=== PATIENT | female | born 1935 | race Caucasian/White ===

== ENCOUNTER 2019-04-13 20:35 | Emergency (ER) | payer MEDICAID, SELFPAY ==
[2019-04-13 20:40] VITALS: BP 202/108; PULSE 80; RESP 18; TEMP 36.3; O2SAT 96; BMI 37.2
--- NOTE | 2019-04-13 21:29 | W.ED.EXTPRO ---
HPI - Extremity Problem General: Chief complaint: Extremity Injury, Lower Stated complaint: unable to move right leg Time Seen by Provider: 04/13/19 20:56 History of Present Illness: HPI Narrative: Patient is an 83-year-old female comes in to the ED with left leg pain. She denies any falls or injuries. She says the pain is in her left knee and in her lower leg. She does have some edema in her left lower extremity. Patient has been able to ambulate but the last 3 days is when the pain is Worse and she doesn't get up and walk as much. Patient currently takes a blood thinner. She does have a cough but denies coughing up any blood. She states that she does get short of breath sometimes and she walks and moves around. She does have a history of chronic left knee pain and his Joint injections in the past. Associated symptoms: Deny chest pain, fever(s) or rash Review of Systems Const: Denies: fever, chills or fatigue Eyes: Denies: change in vision or eye discomfort ENMT: Denies: throat pain, painful swallowing, nasal discharge or nasal congestion Card: Denies: chest pain, palpitations, edema, swelling of feet/ankles, shortness of breath on exertion or shortness of breath when lying down Resp: Reports: shortness of breath and non-productive cough; Denies: productive cough GI: Denies: abdominal pain, nausea, vomiting, diarrhea, constipation or blood in stool : Denies: flank pain, painful urination or blood in urine Musc: Reports: extremity pain (left lower), extremity swelling (left lower ) and joint pain (left knee); Denies: neck pain or back pain Skin/Breast: Denies: rash or new lesion Neuro: Denies: headache, numbness in extremities or weakness in extremities [facility] ED PFSH: Social History Smoking and tobacco status: never smoked Physical Exam Const: COMMON NORMALS: oriented x3 HENMT: COMMON NORMALS: normocephalic HEAD & SCALP: normocephalic MOUTH: oral and palatal mucosa normal THROAT: posterior oropharynx normal and uvula midline Neck/C-Spine: COMMON NORMALS: supple GENERAL: Yes normal visual inspection Resp: COMMON NORMALS: normal respiratory effort, no retractions, no use of accessory muscles and clear to auscultation bilaterally AUSCULTATION: clear to auscultation bilaterally Cardio: COMMON NORMALS: regular rate, regular rhythm, S1 normal heart sound, S2 normal heart sound, no gallops, no clicks and peripheral pulses 2+ throughout RATE: regular rate RHYTHM: regular rhythm HEART SOUNDS: S1 normal, S2 normal and murmur systolic Location: apex Intensity: III/ Characteristics: blowing Timing: early PERIPHERAL PULSES: pulses 2+ throughout GI: COMMON NORMALS: normal to inspection, nondistended, normoactive bowel sounds, soft to palpation, non-tender and no masses PALPATION: Yes soft : COMMON NORMALS: Yes no CVA tenderness BLADDER/KIDNEY EXAM: Yes no CVA tenderness Back/Pelvis: COMMON NORMALS: no CVA tenderness Extremity: LEFT LOWER EXTREMITY: Yes lower leg (2+ pitting edema. non tender) Neuro: COMMON NORMALS: oriented x3 and moves all extremities Skin: GENERAL SKIN EXAM: dry skin Course Vital Signs: Vital signs: Vital Signs Temperature 97.9 F 04/13/19 22:44 Pulse Rate 73 04/13/19 22:44 Respiratory Rate 18 04/13/19 22:44 Blood Pressure 190/93 04/13/19 22:44 Pulse Oximetry 73 L 04/13/19 22:44 MDM - Extremity (Nontraumatic) Imaging Data^: US Vascular: Attestation: I personally reviewed and interpreted this imaging study as follows: Radiologist's impression: Preliminary report shows no blood clots or DVTs. Xray Ortho: Attestation: I personally reviewed and interpreted this imaging study as follows: My impression: No acute fractures seen. Pending final radiology report Discharge Plan Discharge Patient Disposition: Home, Self-Care Clinical Impression: Lower extremity pain Qualifiers: Laterality: left Qualified Code(s): M79.605 - Pain in left leg Condition: Stable Discharge Orders: Discharge Order (Routine); Ordered 04/13/19 Ordered By: Wesly Escobar Referrals: Torey Cade MD [Family Provider] - Discharge Diet: Regular Discharge Activity: Increase activity as tolerated Patient Instructions: Knee Pain (ED) Activity Restrictions/Additional Instructions: Follow-up with your PCP in 5-7 days for reevaluation. Here in the ED where able to rule out a blood clot in the left leg. Take ibuprofen or Aleve for pain. You can elevate and ice leg as needed to help reduce any swelling. Discharge Date/Time: 04/13/19 23:00 Coding Level of Care Code ED Geological Engineer for Aylin Tracy Exam Comprehensive
--- NOTE | 2019-04-13 21:37 | XRR_ITS ---
PROCEDURE INFORMATION: Exam: XR Left Knee Exam date and time: 04/13/2019 10:05 PM Age: 83 years old Clinical indication: Pain and injury or trauma; Fall; Initial encounter; Blunt trauma; Knee; Left; Injury date: 04/13/19 TECHNIQUE: Imaging protocol: XR Left knee. Views: Frontal, lateral, and oblique views. COMPARISON: [facility] Knee LEFT 3 views 09/25/2016 10:38 AM FINDINGS: Bones/joints: Moderately severe medial compartment predominate narrowing with moderate articular sclerosis. 6 mm lateral subluxation of the tibia. Slight varus alignment. No acute bony abnormality identified. Superior patellar and femoral trochlear articular marginal osteophytes are present. Soft tissues: Normal. Vasculature: Vascular calcifications are present. XR/XR knee LT 1-2V 45012 IMPRESSION: 1. Medial and patellofemoral compartment predominant primary osteoarthritis. 2. No acute bony injury identified.
--- NOTE | 2019-04-13 21:38 | USCV_ITS ---
Mercedez Ramos Age: 83 Gender: F : 1935 Exam Date: 04/13/2019 22:30 Ordering Phys: Wesly Escobar Technologist: Mayo Ontiveros Exam Location: [facility] [place]_ Indication: LT LEG PAIN AND SWELLING HISTORY: Lower extremity edema. PROCEDURES: Venous duplex imaging was performed in only the left lower extremity. The following venous structures were evaluated: common femoral vein, profunda vein, proximal portion of the greater saphenous vein, superficial femoral vein, and the popliteal vein. In addition, the posterior tibial and peroneal trunk were evaluated. On the left side, the common femoral, superficial femoral, profunda femoral, popliteal, posterior tibial, greater saphenous veins, and the peroneal trunk were identified and interrogated in the standard fashion. These veins were found to be easily compressible with spontaneous blood flow. No evidence of insufficiency or thrombus noted. FINDINGS: Normal 2-D Doppler and augmentation and compressibility throughout the lower extremity venous structures. Additional imaging through the proximal calf veins also reveals no thrombus. Limited evaluation of the greater saphenous vein is patent with no thrombus.. CONCLUSIONS No evidence of left lower extremity DVT. Scout Stevens MD (Electronically Signed) Final Date: 14 April 2019 09:23 S
--- NOTE | 2019-04-13 22:04 | PC.NURSE ---
xray in room with pt
--- NOTE | 2019-04-13 22:23 | PC.NURSE ---
ultrasound in with pt
[2019-04-13 22:44] VITALS: BP 190/93; PULSE 73; RESP 18; TEMP 36.6; O2SAT 73
== END 2019-04-13 23:00 | disposition home or self-care (01) ==
PROVIDERS: Emergency Provider Physician Assistant; Family Provider Family Medicine
DX: M79.662 Pain in left lower leg (principal)
CPT/HCPCS: 73560; 93971; 99281; 99283

== ENCOUNTER 2019-04-16 13:16 | Outpatient (CLI) | payer MEDICAID, SELFPAY ==
--- NOTE | 2019-04-16 13:27 | XRR_ITS ---
PROCEDURE INFORMATION: Exam: XR Left Femur Exam date and time: 04/16/2019 1:50 PM Age: 83 years old Clinical indication: Pain; Lower leg and thigh; Left; Additional info: L femur pain TECHNIQUE: Imaging protocol: XR Left femur. Views: 2 views. COMPARISON: CR XR knee LT 1-2V [id number] 04/13/2019 9:49 PM FINDINGS: Bones/joints: There is osteopenia. No acute fracture. There is an osteophyte off the distal femur. Soft tissues: Unremarkable. XR/XR femur LT min 2V* [id number] IMPRESSION: No acute findings.
--- NOTE | 2019-04-16 13:27 | XRR_ITS ---
PROCEDURE INFORMATION: Exam: XR Left Tibia and Fibula Exam date and time: 04/16/2019 1:29 PM Age: 83 years old Clinical indication: Pain; Lower leg and thigh; Left; Additional info: L tibia pain TECHNIQUE: Imaging protocol: XR Left tibia and fibula. Views: 2 views. COMPARISON: CR XR knee LT 1-2V [id number] 04/13/2019 9:49 PM FINDINGS: Bones/joints: There is osteopenia.There is no evidence for acute fracture or malalignment. Soft tissues: Normal. XR/XR tibia fibula LT 2V [id number] IMPRESSION: No acute findings.
--- NOTE | 2019-04-16 13:48 | CT_ITS ---
WS: [id number] CT CHEST, ABDOMEN AND PELVIS WITH CONTRAST HISTORY: COLON CANCER TECHNIQUE: Contiguous 5 mm axial imaging performed through the chest, abdomen and pelvis with IV cont rast, oral contrast has been provided. Coronal and sagittal reformats chest. Coronal and sagittal ref ormats through the abdomen and pelvis. All CT scans at [facility] use at least one of the se dose optimization techniques: automated exposure control; mA and/or kV adjustment per patient size (includes targeted exams where dose is matched to clinical indication); or iterative reconstruction. CONTRAST: Omnipaque 300; 95 mL IV. DLP: 2058.6 mGy.cm COMPARISON: 05/01/2018, 05/04/2017 and 04/11/[address]: Respiratory motion artifact. No pulmonary nodule or pneumonia. No pericardial or pleural ef fusion. Moderate enlargement the cardiac chambers. Atherosclerosis aorta. Pulmonary hypertension. No mediastinal or hilar adenopathy. Small hiatal hernia. Abdomen CT: Liver is normal size. No metastatic disease. Gallbladder is slightly distended but simila r to prior studies with no adjacent inflammation. Spleen is normal. Marked atrophy of the pancreas. N o adrenal mass. Mild atrophy of each kidney. There is no obstruction. Atherosclerosis aorta. No mesen teric or retroperitoneal lymph nodes or ascites. Pelvic CT: Ventral abdominal wall hernia is still evident. Herniated loops of small bowel with no obs truction. There is adjacent fluid collection along the anterior abdominal wall which is similar to th e prior study. Fluid collection measures 6.4 x 2.8 cm with no increase in size. No adenopathy or free fluid in the pelvis. Marked increase in thoracic kyphosis. LEFT convex curvature the lumbar spine. No osteoblastic or oste olytic lesions. CT/CT chest abd pel w con* IMPRESSION: 1. No metastatic disease throughout the chest, abdomen or pelvis. 2. Moderate cardiac enlargement and pulmonary hypertension. 3. Small hiatal hernia. 4. Ventral abdominal wall hernia is unchanged. Small amount of adjacent fluid. No GI tract obstruction.
[2019-04-16 14:07] LABS: Basophils % 0.4 %; Eosinophils # 0.2 10^3/uL (0.0-0.8); Hematocrit 38.9 % (37.0-47.0); Hemoglobin 12.9 g/dL (11.5-15.3); Lymphocytes # 1.4 10^3/uL (0.8-4.8); Lymphocytes % 28.1 %; Mean Corpuscular HGB Conc 33.2 g/dL (30.0-36.0); Mean Corpuscular Hemoglobin 32.7 pg (28.0-34.0); Mean Corpuscular Volume 98.7 fL (81-99); Mean Platelet Volume 9.6 fL (7.4-10.4); Monocytes # 0.5 10^3/uL (0.2-0.9); Monocytes % 10.3 %; Neutrophils # 2.9 10^3/uL (1.8-7.7); Neutrophils % 57.8 %; Nucleated Red Blood Cells % 0 %; Platelet Count 217 10^3/cmm (130-400); Red Blood Count 3.94 10^6/uL (4.1-5.3); Red Cell Distribution Width 12.8 % (12.1-15.1); White Blood Count 5.1 10^3/uL (4.0-10.0)
[2019-04-16 14:27] LABS: Carcinoembryonic Antigen 1.2 ng/mL (0.0-4.7)
[2019-04-16 14:38] LABS: Alanine Aminotransferase 12 U/L (0-33); Albumin Level 3.8 g/dL (3.5-5.2); Alkaline Phosphatase 90 IU/L (35-105); Anion Gap 14.8 (5-19); Aspartate Amino Transferase 21 U/L (0-32); Blood Urea Nitrogen 23 mg/dL (8-23); Calcium 9.5 mg/dL (8.5-10.5); Carbon Dioxide 28 mmol/L (22-29); Chloride 103 mmol/L (98-107); Globulin 3.6 g/dL (1.3-4.6); Glucose 109 mg/dL (65-115); Potassium 4.8 mmol/L (3.5-5.1); Sodium 141 mmol/L (136-145); Total Bilirubin 0.7 mg/dL (0.15-1.2); Total Protein 7.4 g/dL (6.6-8.7)
[2019-04-16] MEDS: iohexol 300 mg/mL 100 mL Btl IV (15:33)
[2019-04-16] MEDS: iohexol 300 mg/mL 50 mL Btl PO (15:34)
== END 2019-04-16 13:17 | disposition home or self-care (01) ==
PROVIDERS: Family Provider Family Medicine; Visit Provider Internal Medicine Medical Oncology
DX: M79.662 Pain in left lower leg (principal); C18.7 Malignant neoplasm of sigmoid colon; I27.20 Pulmonary hypertension, unspecified; K44.9 Diaphragmatic hernia without obstruction or gangrene; K46.9 Unspecified abdominal hernia without obstruction or gangrene; I51.7 Cardiomegaly
CPT/HCPCS: 36415; 71260; 73552; 73590; 74177; 80053; 82378; 85025

== ENCOUNTER 2019-04-23 11:38 | Outpatient (CLI) | payer MEDICAID, SELFPAY ==
--- NOTE | 2019-04-23 19:27 | ONC FU_ITS ---
Dr. Winchester Patient Follow-Up Note Patient: Mercedez Ramos Unit #: [id number]: 1935 Dicatated By: Gregor Winchester M.D.Date of Visit:Apr 23, 2019 Onc Med Follow-up/Prog Note Chief Complaint: Colon cancer. 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 She had presented with severe abdominal pain and rectal bleeding. Her colonoscopy revealed partially obstructing large mass with active bleeding in sigmoid colon. The biopsy was consistent with moderately differentiated adenocarcinoma. The staging CT of the abdomen and pelvis on 04/09/2015 showed new mid sigmoid colonic cavitary mass with partial bowel obstruction or ileus. There was no evidence of distant metastatic disease. On 04/29/2015 she was taken to OR by Dr. Franklin for exploratory laparotomy and low anterior resection. Intraoperatively, the tumor was adhesed to the sidewall of the pelvis, with desmoplastic reaction but no obvious extension. At the time of elevation of colon, the tumor was coming through the colon wall. However, there was no signs of peritoneal carcinomatosis. The surgical pathology revealed 8 cm low-grade infiltrating adenocarcinoma with mucinous histology, penetrating through muscularis propria into pericolic tissue to the surface of the resection specimen. Radial margins were positive. No lymphovascular invasion was seen. 2 out of 15 harvested lymph nodes were involved with metastatic disease. Thus, her disease was pathologic stage IIIB (T3, N1b, M0). The patient was first seen by Dr. Marte on 05/12/2015. Adjuvant chemotherapy was recommended given several high risk features, but the patient declined. As such, she has been followed expectantly. Restaging CT abdomen/pelvis on 11/10/2015 showed possible enterocutaneous fistula, clinical correlation recommended. Other findings were chronic. There was no evidence of metastatic involvement. Repeat CT scans on 03/28/2016 again showed no metastatic disease throughout the chest, abdomen, or pelvis. I had seen her for a follow-up visit on 08/29/2016. At that time I had recommended that she schedule a surveillance colonoscopy with Dr. Franklin, but she declined to follow through with that. She did have surveillance CT scans of the chest, abdomen, and pelvis in February 2017, and those showed no evidence of recurrent or metastatic disease. In April 2017 she was admitted to the hospital with a small bowel obstruction associated with an incarcerated ventral hernia. She underwent surgical repair with no complications. Her other medical illnesses include hypertension, hyperlipidemia, type II diabetes, coronary artery disease, atrial fibrillation, hypothyroidism, and GERD. She is on chronic anticoagulation with rivaroxaban. INTERIM HISTORY: Her surveillance CT scans on 05/01/2018 showed no evidence of a neoplastic process in the chest, abdomen, or pelvis. There was evidence of cardiomegaly and there was mild pulmonary arterial enlargement suggestive of pulmonary hypertension. The gallbladder was noted to be distended, but without evidence of gallstones. She continued on observation/expectant management. Surveillance CT scans on 04/16/2019 showed no evidence for metastatic disease throughout the chest, abdomen, or pelvis. There was noted to be moderate cardiac enlargement and pulmonary hypertension. A ventral abdominal wall hernia appeared unchanged. She is seen for a scheduled visit. Her main complaint is that she has been having pain in her knees and legs, severe enough that it is impairing her mobility. She does not have much activity now. ECOG score is 3. She has seen Dr. Cade, and she is hoping to get injections in her knees. Her appetite has been good. She has no fever or night sweats. She has some sinus drainage and some hoarseness. Her breathing has been okay. She recently has had a flulike illness with productive cough, but she thinks that is getting better. She is not having chest pain. She currently has no GI complaints. She has frequent urination with some urgency/incontinence. She has no other joint or bone pain. She has had some headache recently with her flu. She occasionally has dizziness. She also occasionally has numbness in her fingers. Medications: Acetaminophen 1 (500 mg) Capsule Oral at bedtime, Aspirin 1 (325 mg) Tablet Oral daily, Benicar HCT 1 (40-25 mg) Tablet Oral daily, Coreg 1 (6.5 mg) Tablet Oral b.i.d., Crestor 1 (40 mg) Tablet Oral daily, Imdur 1 (60 mg) Tablet SR 24 HR Oral daily, Levothyroxine Sodium 1 (162 mcg) Capsule Oral daily, Protonix 1 (40 mg) Pack Oral daily, Senna S 2 (8.6-50 mg) Tablet Oral t.i.d., Toviaz 1 (4 mg) Tablet SR 24 HR Oral daily, Ventolin HFA 2 (108 (90 base) mcg/act) Aerosol, solution Inhalation four times a day, Xarelto 1 (20 mg) Tablet Oral daily, Zetia 1 (10 mg) Tablet Oral daily Allergies: No Known Allergies. Review of Systems: Constitutional - She has limited activity, mainly due to pain in her knees. Appetite is good. No fever or night sweats. ECOG score is 3, ENMT - She has sinus drainage and she complains of hoarseness. No mouth sores. No sore throat or difficulty swallowing, Hematologic/Lymphatic - She bruises easily, Respiratory - No shortness of breath, but she has had cough productive of yellow sputum. No pleuritic pain or hemoptysis, Cardiovascular - No angina pain. No palpitations, Gastrointestinal - No nausea or vomiting. No heartburn or acid reflux. Her bowel function has been OK. No blood in the stool or black stools, Genitourinary (F) - No dysuria or hematuria. She has urinary frequency and she has some urgency/incontinence, Musculoskeletal - She has arthritis pain in her knees and legs, Integumentary - No skin complications, Neurologic - She had some headache with her flu , and she occasionally has dizziness. She has occasional numbness in her fingers, Psychiatric - No anxiety or depression. No insomnia. Vital Signs: Performed on Apr 23, 2019 11:52 Height - 60.50 in Weight - lbs Temperature - 98.4 F Pulse - 80 /min Respiration - 20 /min BP - 154/80 mm(hg) (HIGH) O2 Sat - 97 % Pain - 10 Physical Examination: Constitutional - She looks pretty good generally, Eyes - Sclerae nonicteric. Conjunctivae clear, ENMT - No lesions noted in the oral cavity, Hematologic/Lymphatic - No cervical, clavicular, or axillary adenopathy, Respiratory - Lungs sound clear, Cardiovascular - Heart rhythm is irregular. There is a II/ systolic murmur. There is no gallop or rub noted, Abdomen - Soft. Liver and spleen are not enlarged. There is no abdominal mass or ascites noted and there is no inguinal adenopathy, Extremities - No edema. She has good dorsalis pedis pulses bilaterally, Neurologic - No focal neurologic deficits noted. Lab/Imaging: Test performed on Apr 16, 2019 13:56 Sodium 141 mmol/L Potassium 4.8 mmol/L Chloride 103 mmol/L CO2 28 mmol/L Anion Gap 14.8 BUN 23 mg/dL Creatinine 0.8 mg/dL Cr Clearance (Est) 74.4800 mL/min Glucose 109 mg/dL Calcium 9.5 mg/dL Protein, Total 7.4 g/dL Albumin 3.8 g/dL Globulin 3.6 g/dL Bilirubin, Total 0.7 mg/dL ALT (SGPT) 12 U/L AST (SGOT) 21 U/L Alkaline Phosphatase 90 IU/L WBC 5.1 10 3/uL RBC 3.94 10 6/uL HGB 12.9 g/dL HCT 38.9 % MCV 98.7 fL MCH 32.7 pg MCHC 33.2 g/dL RDW 12.8 % Platelet Count 217 10 3/cmm MPV 9.6 fL Neutrophils 2.9 10 3/uL Lymphocytes 1.4 10 3/uL Monocytes 0.5 10 3/uL Eosinophils 0.2 10 3/uL Basophils 0.0 10 3/uL Neutrophil % 57.8 % Lymphocyte % 28.1 % Monocyte % 10.3 % Eosinophil % 3.0 % Basophils % 0.4 % CEA 1.2 ng/mL Impression: 1. 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 2. She underwent low anterior resection on 04/29/2015. Pathology showed positive radial margin. Adjuvant chemotherapy was recommended, but declined. Her other medical illnesses include: 3. Hypertension. 4. Hyperlipidemia. 5. Type II diabetes. 6. Coronary artery disease. 7. Atrial fibrillation, on anticoagulation. 8. Hypothyroidism. 9. GERD. She has been followed on observation/expectant management. She has declined to have any surveillance colonoscopy. She did have surveillance CT scans in February 2017. There was no evidence of recurrent or metastatic disease. In April 2017 she was admitted to the hospital with CT evidence of small bowel obstruction in association with an incarcerated ventral hernia. She underwent surgical repair with no complications. During subsequent follow-up she had complained of being more fatigued, and she was having significant arthritis pain. As of her follow-up visit in March 2018 her CEA remained stable, and there was no evidence of recurrence/metastatic disease on surveillance CT scans in April 2018. During followup she had complained that her stomach bothered her, but that appeared to be associated with poor bowel function, and ultimately it did improve. Recently she has had worsening joint pain in her knees, severe enough that it is impairing her mobility. She otherwise appears stable clinically. Thus far there has been no evidence of recurrence of the colon cancer. Plan: She remains on observation/expectant management for the colon cancer. She will be scheduled for a follow-up visit in 6 months. Signed By: Gregor Winchester M.D. <<Signature on File>>
== END 2019-04-23 11:39 | disposition home or self-care (01) ==
LOC: ONCMED 11:38
PROVIDERS: Family Provider Family Medicine; PCP Family Medicine; Visit Provider Internal Medicine Medical Oncology
DX: Z08 Encounter for follow-up examination after completed treatment for malignant neoplasm (principal); Z85.038 Personal history of other malignant neoplasm of large intestine; I10 Essential (primary) hypertension; E78.5 Hyperlipidemia, unspecified; E11.9 Type 2 diabetes mellitus without complications; I25.10 Atherosclerotic heart disease of native coronary artery without angina pectoris; I48.91 Unspecified atrial fibrillation; E03.9 Hypothyroidism, unspecified; K21.9 Gastro-esophageal reflux disease without esophagitis; Z79.01 Long term (current) use of anticoagulants; Z90.49 Acquired absence of other specified parts of digestive tract
CPT/HCPCS: G0463

== ENCOUNTER 2019-10-08 11:35 | Outpatient (CLI) | payer MEDICAID, SELFPAY ==
[2019-10-08 11:57] LABS: Basophils % 0.5 %; Eosinophils # 0.2 10^3/uL (0.0-0.8); Eosinophils % 4.1 %; Hematocrit 39.6 % (37.0-47.0); Lymphocytes # 1.5 10^3/uL (0.8-4.8); Lymphocytes % 35.4 %; Mean Corpuscular HGB Conc 32.8 g/dL (30.0-36.0); Mean Corpuscular Volume 97.5 fL (81-99); Monocytes # 0.5 10^3/uL (0.2-0.9); Monocytes % 11.5 %; Neutrophils # 1.98 10^3/uL (1.8-7.7); Neutrophils % 48.3 %; Nucleated Red Blood Cells % 0 %; Platelet Count 174 10^3/cmm (130-400); Red Blood Count 4.06 10^6/uL (4.1-5.3); Red Cell Distribution Width 12.7 % (12.1-15.1); White Blood Count 4.1 10^3/uL (4.0-10.0)
[2019-10-08 12:14] LABS: Alanine Aminotransferase 11 U/L (0-33); Albumin Level 4.2 g/dL (3.5-5.2); Alkaline Phosphatase 92 IU/L (35-105); Anion Gap 11.4 (5-19); Aspartate Amino Transferase 23 U/L (0-32); Blood Urea Nitrogen 18 mg/dL (8-23); Calcium 9.4 mg/dL (8.5-10.5); Carbon Dioxide 28 mmol/L (22-29); Chloride 105 mmol/L (98-107); Globulin 3.1 g/dL (1.3-4.6); Glucose 104 mg/dL (65-115); Osmolality Calculated 287 mOsm/kg (285-295); Potassium 4.4 mmol/L (3.5-5.1); Sodium 140 mmol/L (136-145); Total Bilirubin 1.1 mg/dL (0.15-1.2); Total Protein 7.3 g/dL (6.6-8.7)
[2019-10-08 13:46] LABS: Carcinoembryonic Antigen 1.4 ng/mL (0.0-4.7)
--- NOTE | 2019-10-11 16:16 | ONC FU_ITS ---
Dr. Winchester Patient Follow-Up Note Patient: Mercedez Ramos Unit #: [id number]: 1935 Dicatated By: Gregor Winchester M.D.Date of Visit:Oct 08, 2019 Onc Med Follow-up/Prog Note Chief Complaint: Colon cancer. 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 She had presented with severe abdominal pain and rectal bleeding. Her colonoscopy revealed partially obstructing large mass with active bleeding in sigmoid colon. The biopsy was consistent with moderately differentiated adenocarcinoma. The staging CT of the abdomen and pelvis on 04/09/2015 showed new mid sigmoid colonic cavitary mass with partial bowel obstruction or ileus. There was no evidence of distant metastatic disease. On 04/29/2015 she was taken to OR by Dr. Franklin for exploratory laparotomy and low anterior resection. Intraoperatively, the tumor was adhesed to the sidewall of the pelvis, with desmoplastic reaction but no obvious extension. At the time of elevation of colon, the tumor was coming through the colon wall. However, there was no signs of peritoneal carcinomatosis. The surgical pathology revealed 8 cm low-grade infiltrating adenocarcinoma with mucinous histology, penetrating through muscularis propria into pericolic tissue to the surface of the resection specimen. Radial margins were positive. No lymphovascular invasion was seen. 2 out of 15 harvested lymph nodes were involved with metastatic disease. Thus, her disease was pathologic stage IIIB (T3, N1b, M0). The patient was first seen by Dr. Marte on 05/12/2015. Adjuvant chemotherapy was recommended given several high risk features, but the patient declined. As such, she has been followed expectantly. Restaging CT abdomen/pelvis on 11/10/2015 showed possible enterocutaneous fistula, clinical correlation recommended. Other findings were chronic. There was no evidence of metastatic involvement. Repeat CT scans on 03/28/2016 again showed no metastatic disease throughout the chest, abdomen, or pelvis. I had seen her for a follow-up visit on 08/29/2016. At that time I had recommended that she schedule a surveillance colonoscopy with Dr. Franklin, but she declined to follow through with that. She did have surveillance CT scans of the chest, abdomen, and pelvis in February 2017, and those showed no evidence of recurrent or metastatic disease. In April 2017 she was admitted to the hospital with a small bowel obstruction associated with an incarcerated ventral hernia. She underwent surgical repair with no complications. Her other medical illnesses include hypertension, hyperlipidemia, type II diabetes, coronary artery disease, atrial fibrillation, hypothyroidism, and GERD. She is on chronic anticoagulation with rivaroxaban. INTERIM HISTORY: Her CT scans on 05/01/2018 showed no evidence of a neoplastic process in the chest, abdomen, or pelvis. There was evidence of cardiomegaly and there was mild pulmonary arterial enlargement suggestive of pulmonary hypertension. The gallbladder was noted to be distended, but without evidence of gallstones. Surveillance CT scans on 04/16/2019 showed no evidence for metastatic disease throughout the chest, abdomen, or pelvis. There was noted to be moderate cardiac enlargement and pulmonary hypertension. A ventral abdominal wall hernia appeared unchanged. She continued on observation/expectant management. She is seen for a scheduled visit. She is accompanied by her granddaughter, who interprets. She has been feeling good generally. She is a little slower, mainly due to to her knee pain. Her ECOG score is 2. She has good appetite. She has no fever or night sweats. She has no shortness of breath, cough, or chest pain. She has chronic constipation, but is being managed adequately with senna. She has bladder incontinence. She also has joint pain in her wrists and fingers, and she has numbness in her fingertips. Medications: Acetaminophen 1 (500 mg) Capsule Oral at bedtime, Aspirin 1 (325 mg) Tablet Oral daily, Benicar HCT 1 (40-25 mg) Tablet Oral daily, Coreg 1 (6.5 mg) Tablet Oral b.i.d., Crestor 1 (40 mg) Tablet Oral daily, Imdur 1 (60 mg) Tablet SR 24 HR Oral daily, Levothyroxine Sodium 1 (162 mcg) Capsule Oral daily, Protonix 1 (40 mg) Pack Oral daily, Senna S 2 (8.6-50 mg) Tablet Oral t.i.d., Toviaz 1 (4 mg) Tablet SR 24 HR Oral daily, Ventolin HFA 2 (108 (90 base) mcg/act) Aerosol, solution Inhalation four times a day, Xarelto 1 (20 mg) Tablet Oral daily, Zetia 1 (10 mg) Tablet Oral daily Allergies: No Known Allergies. Review of Systems: Constitutional - She has limited activity, mainly due to her knees. Her appetite is good. Her weight is stable. She does not have fever or night sweats. ECOG score is 2, ENMT - No sinus congestion/drainage. No mouth sores. No sore throat or difficulty swallowing, Hematologic/Lymphatic - No abnormal bruising or bleeding, Respiratory - No shortness of breath. No cough. No pleuritic pain or hemoptysis, Cardiovascular - No angina pain. No palpitations, Gastrointestinal - No nausea or vomiting. No heartburn or acid reflux. She has constipation, but it is managed adequately with senna. No blood in the stool or black stools, Genitourinary (F) - No dysuria or hematuria. No urinary frequency. She has a bladder incontinence, Musculoskeletal - She had joint pain, mainly in her knees, but also in her wrists and fingers, Neurologic - No headache. She sometimes has dizziness. She has numbness in her fingertips. No other focal neurologic symptoms, Psychiatric - No anxiety or depression. No insomnia. Vital Signs: Performed on Oct 08, 2019 12:43 Height - 60.50 in Weight - 182.2 lbs (HIGH) BSA - 1.80 sq.m BMI - 35.00 (HIGH) Temperature - 96.6 F (LOW) Pulse - 86 /min Respiration - 17 /min BP - 159/82 mm(hg) (HIGH) O2 Sat - 96 % Pain - 0 Physical Examination: Constitutional - She looks pretty good generally, Eyes - Sclerae nonicteric. Conjunctivae clear, ENMT - No lesions noted in the oral cavity, Hematologic/Lymphatic - No cervical, clavicular, or axillary adenopathy, Respiratory - Lungs sound clear, Cardiovascular - Heart rhythm is irregular. There is a II/ systolic murmur. There is no gallop or rub noted, Abdomen - Soft. Liver and spleen are not enlarged. There is no abdominal mass or ascites noted and there is no inguinal adenopathy, Extremities - No edema. Dorsalis pedis pulses are palpable bilaterally, Neurologic - No focal neurologic deficits noted. Lab/Imaging: Test performed on Oct 08, 2019 11:42 Sodium 140 mmol/L Potassium 4.4 mmol/L Chloride 105 mmol/L CO2 28 mmol/L Anion Gap 11.4 BUN 18 mg/dL Creatinine 0.8 mg/dL Cr Clearance (Est) 71.96 mL/min Glucose 104 mg/dL Calcium 9.4 mg/dL Protein, Total 7.3 g/dL Albumin 4.2 g/dL Globulin 3.1 g/dL Bilirubin, Total 1.1 mg/dL ALT (SGPT) 11 U/L AST (SGOT) 23 U/L Alkaline Phosphatase 92 IU/L WBC 4.1 10 3/uL RBC 4.06 10 6/uL HGB 13.0 g/dL HCT 39.6 % MCV 97.5 fL MCH 32.0 pg MCHC 32.8 g/dL RDW 12.7 % Platelet Count 174 10 3/cmm MPV 10.0 fL Neutrophils 1.98 10 3/uL Lymphocytes 1.5 10 3/uL Monocytes 0.5 10 3/uL Eosinophils 0.2 10 3/uL Basophils 0.0 10 3/uL Neutrophil % 48.3 % Lymphocyte % 35.4 % Monocyte % 11.5 % Eosinophil % 4.1 % Basophils % 0.5 % NRBC % 0 % CEA 1.4 ng/mL Impression: 1. 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 2. She underwent low anterior resection on 04/29/2015. Pathology showed positive radial margin. Adjuvant chemotherapy was recommended, but declined. Her other medical illnesses include: 3. Hypertension. 4. Hyperlipidemia. 5. Type II diabetes. 6. Coronary artery disease. 7. Atrial fibrillation, on anticoagulation. 8. Hypothyroidism. 9. GERD. She has been followed on observation/expectant management. She has declined to have any surveillance colonoscopy. She did have surveillance CT scans in February 2017. There was no evidence of recurrent or metastatic disease. In April 2017 she was admitted to the hospital with CT evidence of small bowel obstruction in association with an incarcerated ventral hernia. She underwent surgical repair with no complications. During subsequent follow-up she had complained of being more fatigued, and she was having significant arthritis pain. As of her follow-up visit in March 2018 her CEA remained stable, and there was no evidence of recurrence/metastatic disease on surveillance CT scans in April 2018. During followup she had complained that her stomach bothered her, but that appeared to be associated with poor bowel function, and ultimately it did improve. She has had gradual decline in her activity tolerance due to arthritis pain in her knees. She has otherwise been stable clinically. Thus far there has been no evidence of recurrence of the colon cancer. Plan: She remains on observation/expectant management for the colon cancer. I will see her again in 6 months. She will have restaging CT scans prior to that visit. Signed By: Gregor Winchester M.D. <<Signature on File>>
== END 2019-10-08 11:36 | disposition home or self-care (01) ==
LOC: ONCMED 11:35
PROVIDERS: PCP Family Medicine; Visit Provider Internal Medicine Medical Oncology
DX: Z08 Encounter for follow-up examination after completed treatment for malignant neoplasm (principal); Z85.038 Personal history of other malignant neoplasm of large intestine; M17.0 Bilateral primary osteoarthritis of knee; Z90.49 Acquired absence of other specified parts of digestive tract; I10 Essential (primary) hypertension; E78.5 Hyperlipidemia, unspecified; E11.9 Type 2 diabetes mellitus without complications; I25.10 Atherosclerotic heart disease of native coronary artery without angina pectoris; I48.91 Unspecified atrial fibrillation; Z79.01 Long term (current) use of anticoagulants; E03.9 Hypothyroidism, unspecified; K21.9 Gastro-esophageal reflux disease without esophagitis
CPT/HCPCS: 80053; 82378; 85025; G0463

== ENCOUNTER 2020-04-26 11:11 | Outpatient (CLI) | payer MEDICAID, SELFPAY ==
--- NOTE | 2020-04-26 11:49 | CT_ITS ---
WS: [id number] CT CHEST, ABDOMEN, AND PELVIS TECHNIQUE: Contrast-enhanced CT of the chest, abdomen, and pelvis with coronal and sagittal reformatt ed images. CLINICAL INFORMATION: COLON CANCER COMPARISON: None. DLP: 1573.[address] scans at [facility] use at least one of these dose optimization techniques: automat ed exposure control; mA and/or kV adjustment per patient size (includes targeted exams where dose is matched to clinical indication); or iterative reconstruction. CT CHEST: Cardiomegaly. Small esophageal hiatal hernia. Normal caliber thoracic aorta. Aortic calcification. Pr ominent central main pulmonary arteries can be seen with pulmonary arterial hypertension. No mediasti nal or hilar lymphadenopathy. No axillary lymphadenopathy. Moderate chronic emphysematous changes. Graff bsegmental atelectasis the lung bases. Subsegmental atelectasis in the right middle lobe. CT ABDOMEN AND PELVIS: Diffuse fatty infiltration of the liver. Normal portal vein and splenic vein. Small esophageal hiatal hernia. Normal spleen. Fatty atrophy of the pancreas. Adrenal glands are normal. Normal renal parenc hymal enhancement. No hydronephrosis. Aortic calcification. Scattered stool in the colon. No evidence of small or large bowel obstruction. Wide mouth ventral abd ominal wall hernia with herniated bowel loops unchanged in appearance from previous. A few air-fluid levels. No evidence of obstruction. Postoperative changes sigmoid colon. No abdominal lymphadenopathy. No pelvic or inguinal lymphadenopathy. Moderate thoracic kyphosis. CT/CT chest abd pel w con* IMPRESSION: 1. No evidence of progressed disease in the chest abdomen or pelvis. 2. Cardiomegaly 3. Small esophageal hiatal hernia. 4. [place] ventral abdominal wall hernia is unchanged since March 2019. 5. No other significant changes from previous.
[2020-04-26 11:58] LABS: Basophils % 0.5 %; Eosinophils # 0.2 10^3/uL (0.0-0.8); Eosinophils % 4.6 %; Hematocrit 42.2 % (37.0-47.0); Hemoglobin 13.9 g/dL (11.5-15.3); Lymphocytes # 1.7 10^3/uL (0.8-4.8); Lymphocytes % 38.2 %; Mean Corpuscular HGB Conc 32.9 g/dL (30.0-36.0); Mean Corpuscular Hemoglobin 32.7 pg (28.0-34.0); Mean Corpuscular Volume 99.3 fL (81-99); Monocytes # 0.5 10^3/uL (0.2-0.9); Monocytes % 11.3 %; Neutrophils # 1.98 10^3/uL (1.8-7.7); Neutrophils % 45.4 %; Nucleated Red Blood Cells % 0 %; Platelet Count 201 10^3/cmm (130-400); Red Blood Count 4.25 10^6/uL (4.1-5.3); Red Cell Distribution Width 12.9 % (12.1-15.1); White Blood Count 4.4 10^3/uL (4.0-10.0)
[2020-04-26 12:19] LABS: Alanine Aminotransferase 16 U/L (0-33); Albumin Level 4.2 g/dL (3.5-5.2); Alkaline Phosphatase 103 IU/L (35-105); Aspartate Amino Transferase 24 U/L (0-32); Blood Urea Nitrogen 12 mg/dL (8-23); Calcium 9.5 mg/dL (8.5-10.5); Carbon Dioxide 26 mmol/L (22-29); Chloride 106 mmol/L (98-107); Globulin 3.1 g/dL (1.3-4.6); Glucose 100 mg/dL (65-115); Osmolality Calculated 294 mOsm/kg (285-295); Sodium 142 mmol/L (136-145); Total Bilirubin 1.2 mg/dL (0.15-1.2); Total Protein 7.3 g/dL (6.6-8.7)
[2020-04-26 12:49] LABS: Carcinoembryonic Antigen 1.7 ng/mL (0.0-4.7)
[2020-04-26] MEDS: iohexol 300 mg/mL 50 mL Btl IV (13:13)
[2020-04-26] MEDS: iohexol 300 mg/mL 100 mL Btl IV (13:54)
== END 2020-04-26 11:12 | disposition home or self-care (01) ==
PROVIDERS: PCP Family Medicine; Visit Provider Internal Medicine Medical Oncology
DX: C18.7 Malignant neoplasm of sigmoid colon (principal); I51.7 Cardiomegaly; K44.9 Diaphragmatic hernia without obstruction or gangrene; K43.9 Ventral hernia without obstruction or gangrene
CPT/HCPCS: 36415; 71260; 74177; 80053; 82378; 85025; Q9967

== ENCOUNTER 2020-04-28 06:00 | Outpatient (CLI) | payer MEDICAID, SELFPAY ==
--- NOTE | 2020-05-02 14:29 | ONC FU_ITS ---
Dr. Winchester Patient Follow-Up Note Patient: Mercedez Ramos Unit #: [id number]: 1935 Dicatated By: Gregor Winchester M.D.Date of Visit:Apr 28, 2020 Onc Med Follow-up/Prog Note Chief Complaint: Colon cancer. 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 She had presented with severe abdominal pain and rectal bleeding. Her colonoscopy revealed partially obstructing large mass with active bleeding in sigmoid colon. The biopsy was consistent with moderately differentiated adenocarcinoma. The staging CT of the abdomen and pelvis on 04/09/2015 showed new mid sigmoid colonic cavitary mass with partial bowel obstruction or ileus. There was no evidence of distant metastatic disease. On 04/29/2015 she was taken to OR by Dr. Franklin for exploratory laparotomy and low anterior resection. Intraoperatively, the tumor was adhesed to the sidewall of the pelvis, with desmoplastic reaction but no obvious extension. At the time of elevation of colon, the tumor was coming through the colon wall. However, there was no signs of peritoneal carcinomatosis. The surgical pathology revealed 8 cm low-grade infiltrating adenocarcinoma with mucinous histology, penetrating through muscularis propria into pericolic tissue to the surface of the resection specimen. Radial margins were positive. No lymphovascular invasion was seen. 2 out of 15 harvested lymph nodes were involved with metastatic disease. Thus, her disease was pathologic stage IIIB (T3, N1b, M0). The patient was first seen by Dr. Marte on 05/12/2015. Adjuvant chemotherapy was recommended given several high risk features, but the patient declined. As such, she has been followed expectantly. Restaging CT abdomen/pelvis on 11/10/2015 showed possible enterocutaneous fistula, clinical correlation recommended. Other findings were chronic. There was no evidence of metastatic involvement. Repeat CT scans on 03/28/2016 again showed no metastatic disease throughout the chest, abdomen, or pelvis. I had seen her for a follow-up visit on 08/29/2016. At that time I had recommended that she schedule a surveillance colonoscopy with Dr. Franklin, but she declined to follow through with that. She did have surveillance CT scans of the chest, abdomen, and pelvis in February 2017, and those showed no evidence of recurrent or metastatic disease. In April 2017 she was admitted to the hospital with a small bowel obstruction associated with an incarcerated ventral hernia. She underwent surgical repair with no complications. Her other medical illnesses include hypertension, hyperlipidemia, type II diabetes, coronary artery disease, atrial fibrillation, hypothyroidism, and GERD. She is on chronic anticoagulation with rivaroxaban. INTERIM HISTORY: Her CT scans on 05/01/2018 showed no evidence of a neoplastic process in the chest, abdomen, or pelvis. There was evidence of cardiomegaly and there was mild pulmonary arterial enlargement suggestive of pulmonary hypertension. The gallbladder was noted to be distended, but without evidence of gallstones. Surveillance CT scans on 04/16/2019 showed no evidence for metastatic disease throughout the chest, abdomen, or pelvis. There was noted to be moderate cardiac enlargement and pulmonary hypertension. A ventral abdominal wall hernia appeared unchanged. She continued on observation/expectant management. Her surveillance CT scans on 04/26/2020 showed no evidence of recurrent or metastatic disease in the chest, abdomen, or pelvis. A [place] ventral abdominal wall hernia appears unchanged from the March 2019 study. She is seen for a scheduled visit. Her main complaint is that she has had pain and swelling in both legs, apparently related to chronic venous stasis. It has improved with leg wraps. She continues to have limited activity. ECOG score is 2. She has good appetite. She has no fever or night sweats. She occasionally has shortness of breath, for which she uses an inhaler as needed. She does not complain of cough and she has not been having chest pain. She has some chronic constipation, but it is managed adequately with softener/laxative. She has bladder incontinence. She sometimes has headache. She has some numbness/tingling in her hands/fingers. Medications: Acetaminophen 1 (500 mg) Capsule Oral at bedtime, Aspirin 1 (325 mg) Tablet Oral daily, Benicar HCT 1 (40-25 mg) Tablet Oral daily, Coreg 1 (6.5 mg) Tablet Oral b.i.d., Crestor 1 (40 mg) Tablet Oral daily, Imdur 1 (60 mg) Tablet SR 24 HR Oral daily, Levothyroxine Sodium 1 (162 mcg) Capsule Oral daily, Protonix 1 (40 mg) Pack Oral daily, Senna S 2 (8.6-50 mg) Tablet Oral t.i.d., Toviaz 1 (4 mg) Tablet SR 24 HR Oral daily, Ventolin HFA 2 (108 (90 base) mcg/act) Aerosol, solution Inhalation four times a day, Xarelto 1 (20 mg) Tablet Oral daily, Zetia 1 (10 mg) Tablet Oral daily Allergies: No Known Allergies. Vital Signs: Performed on Apr 28, 2020 15:35 Height - 60.50 in Weight - 177.8 lbs (LOW) BSA - 1.79 sq.m BMI - 34.15 (HIGH) Temperature - 97.9 F (LOW) Pulse - 81 /min Respiration - 20 /min BP - 178/101 mm(hg) (HIGH) O2 Sat - 93 % (LOW) Pain - 10 Fatigue - 0 Physical Examination: Constitutional - She looks pretty good generally, Eyes - Sclerae nonicteric. Conjunctivae clear, ENMT - No lesions noted in the oral cavity, Hematologic/Lymphatic - No cervical, clavicular, or axillary adenopathy, Respiratory - Lungs sound clear, Cardiovascular - Heart rhythm is irregular. There is a II/ systolic murmur. There is no gallop or rub noted, Abdomen - Soft. Liver and spleen are not enlarged. There is no abdominal mass or ascites noted and there is no inguinal adenopathy, Extremities - There are venous stasis changes bilaterally, but with just mild edema, Neurologic - No focal neurologic deficits noted. Lab/Imaging: CBC shows hemoglobin 13.9 g, white blood cell count 4400, and platelet count 201,000. Comprehensive metabolic profile shows stable renal function with BUN 12 and creatinine 0.7 mg/dL. The bilirubin is borderline high at 1.2 mg/dL, but with normal liver enzymes. Her CEA is stable at 1.7 ng/mL. Problem List: 1. Moderately differentiated adenocarcinoma of the sigmoid colon, stage IIIB (T3, N1b, M0). She underwent low anterior resection on 04/29/2015. Pathology showed positive radial margin. She declined adjuvant chemotherapy. 2. Hypertension. 3. Hyperlipidemia. 4. Type II diabetes. 5. Coronary artery disease. 6. Atrial fibrillation, on anticoagulation. 7. Hypothyroidism. 8. GERD. 9. She has chronic venous stasis. 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 he underwent low anterior resection on 04/29/2015. Pathology showed positive radial margin. She has been followed expectantly, as she had declined adjuvant chemotherapy. In April 2017 she was admitted to the hospital with CT evidence of small bowel obstruction in association with an incarcerated ventral hernia. She underwent surgical repair with no complications. During subsequent follow-up her clinical status has remained stable. Thus far there has been no evidence of recurrence of the colon cancer. As she is now close to 5 years out from surgery, she has advised now to just continue her regular follow-up with Dr. Cade. She should continue to have laboratory studies, including CEA, at least yearly. She does not require any further surveillance CT scanning unless clinically indicated. I will see her again only as needed. Signed By: Gregor Winchester M.D. <<Signature on File>>
== END 2020-04-28 06:01 | disposition home or self-care (01) ==
LOC: ONCMED 06:03
PROVIDERS: PCP Family Medicine; Visit Provider Internal Medicine Medical Oncology
DX: Z08 Encounter for follow-up examination after completed treatment for malignant neoplasm (principal); Z85.038 Personal history of other malignant neoplasm of large intestine; Z90.49 Acquired absence of other specified parts of digestive tract
CPT/HCPCS: G0463

== ENCOUNTER → 2020-06-02 11:31 | Outpatient (BNVA) | payer MEDICAID, SELFPAY | PROVIDERS: PCP Family Medicine; Referring Provider Family Medicine; Visit Provider Orthopaedic Surgery | DX: M17.0 Bilateral primary osteoarthritis of knee (principal); M25.562 Pain in left knee | CPT/HCPCS: 73560; 73565 ==

== ENCOUNTER 2020-11-08 12:40 | Outpatient (CLI) | payer MEDICAID, SELFPAY ==
--- NOTE | 2020-11-08 12:51 | USCV_ITS ---
Mercedez Ramos Age: 85 Gender: F : 1935 Exam Date: 11/08/2020 13:10 Ordering Phys: Torey Cade MD Technologist: Beatriz Nicholas Exam Location: [facility] [place] Indication: AFIB BP: / HR: 59 Rhythm: Atrial fibrillation Technical Quality: Adequate MEASUREMENTS (Male / Female) Normal Values 2D ECHO LV Diastolic Diameter PLAX 4.2 cm 4.2 - 5.9 / 3.9 - 5.3 cm LV Systolic Diameter PLAX 3.3 cm LV Chamber Size 4.0 cm IVS Diastolic Thickness 1.3 cm 0.6 - 1.0 / 0.6 - 0.9 cm IVS Systolic Thickness 1.8 cm LVPW Diastolic Thickness 1.6 cm 0.6 - 1.0 / 0.6 - 0.9 cm LVPW Systolic Thickness 1.8 cm RV Chamber Size 4.1 cm LVOT Diameter 2.1 cm LV Ejection Fraction 2D Teich 45.1 % LV Ejection Fraction MOD 2C 55.5 % LV Ejection Fraction 2C AL 58.9 % LA Diameter 4.6 cm LA Width 4.2 cm LA Height 5.1 cm RA Width 5.4 cm RA Height 6.3 cm Aorta at Sinotubular Diameter 3.7 cm M-MODE LV Diastolic Diameter MM 4.3 cm 4.2 - 5.9 / 3.9 - 5.3 cm LV Systolic Diameter MM 3.2 cm LV Ejection Fraction MM Teich 52.0 % IVS Diastolic Thickness MM 1.7 cm 0.6 - 1.0 / 0.6 - 0.9 cm IVS Systolic Thickness MM 2.0 cm LVPW Diastolic Thickness MM 1.6 cm 0.6 - 1.0 / 0.6 - 0.9 cm LVPW Systolic Thickness MM 1.8 cm Aortic Annulus Diameter 3.4 cm LA Ao Ratio MM 1.5 MV E Point Septal Separation 0.5 cm DOPPLER AV Peak Velocity 247.7 cm/s LVOT Peak Velocity 75.0 cm/s AV Area Cont Eq vti 1.0 cm squared AV Area Cont Eq pk 1.0 cm squared MV Area PHT 4.6 cm squared Mitral E to A Ratio 91.8 MV E' Velocity 73.5 cm/s Mitral E to MV E' Ratio 14.1 Mitral E to LV E' Lateral Ratio 15.1 Mitral E to LV E' Septal Ratio 13.2 TR Peak Velocity 286.0 cm/s TR Peak Gradient 32.7 mmHg TR Mean Velocity 237.1 cm/s TR Mean Gradient 23.9 mmHg TR Velocity Time Integral 116.0 cm TV Peak E Velocity 96.0 cm/s Right Atrial Pressure 8.0 mmHg Pulmonary Artery Systolic Pressu 40.7 mmHg PV Peak Velocity 56.0 cm/s RV Acceleration Time 0.1 s RV Ejection Time 0.4 s RV AcT/ET 0.4 FINDINGS Left Ventricle Normal left ventricular cavity size. Normal left ventricular systolic function. No regional wall motion abnormalities. Left ventricular ejection fraction is estimated at 55 %. In the presence of atrial fibrillation diastolic function cannot be assessed accurately. Right Ventricle Normal right ventricular size. Moderate pulmonary hypertension, RVSP 40.7 mmHg. Right Atrium Severely increased right atrial size. Left Atrium The left atrium is normal in size. Mitral Valve Severely thickened mitral valve. Severe mitral annular calcification. No mitral valve stenosis. Moderate mitral valve regurgitation. Aortic Valve Severe aortic valve calcification. Moderate aortic valve stenosis, mean gradient 11 mmHg, ALPHONSO 0.99cm squared. Trace to mild aortic valve regurgitation. Tricuspid Valve Thickened tricuspid valve. Severe tricuspid valve regurgitation. Pulmonic Valve Mild pulmonary valve regurgitation. Pericardium Normal pericardium without effusion. Aorta Normal ascending aorta dimension. CONCLUSIONS 1-Normal left ventricular cavity size. Normal left ventricular systolic function. No regional wall motion abnormalities. Left ventricular ejection fraction is estimated at 55 %. In the presence of atrial fibrillation diastolic function cannot be assessed accurately. 2-Severely increased right atrial size. 3-Normal right ventricular size. Moderate pulmonary hypertension, RVSP 40.7 mmHg. 4-Severely thickened mitral valve. Severe mitral annular calcification. No mitral valve stenosis. Moderate mitral valve regurgitation. 5-Severe aortic valve calcification. Moderate aortic valve stenosis, mean gradient 11 mmHg, ALPHONSO 0.99cm squared. Trace to mild aortic valve regurgitation. 6-Thickened tricuspid valve. Severe tricuspid valve regurgitation. 7-There is no pericardial effusion. 8-Right atrial pressure is around 5 mm of mercury. 9-When compared to the prior echocardiogram dated 06/2012 there is worsening of tricuspid valve regurgitation along with severely increased right atrium now. Heavenly Martell MD (Electronically Signed) Final Date: 08 November 2020 18:39 S
== END 2020-11-08 12:41 | disposition home or self-care (01) ==
LOC: US 12:41
PROVIDERS: PCP Family Medicine; Visit Provider Family Medicine
DX: I48.91 Unspecified atrial fibrillation (principal); I27.20 Pulmonary hypertension, unspecified; I08.3 Combined rheumatic disorders of mitral, aortic and tricuspid valves
CPT/HCPCS: 93306

== ENCOUNTER 2021-01-07 20:58 | Emergency (ER) | payer MEDICAID, SELFPAY ==
[2021-01-07 21:04] VITALS: BP 173/108; PULSE 109; RESP 16; TEMP 36.8; O2SAT 96
--- NOTE | 2021-01-07 21:16 | XRR_ITS ---
PROCEDURE INFORMATION: Exam: XR Chest Exam date and time: 01/07/2021 9:16 PM Age: 85 years old Clinical indication: Injury or trauma; Fall; Blunt trauma (contusions or hematomas); Injury date: 01/07/2021; Injury details: Fell around 1pm TECHNIQUE: Imaging protocol: XR of the chest. Views: 1 view. Total images: 1 COMPARISON: CT chest abd pel w con* 04/26/2020 1:59:56 PM FINDINGS: Lungs: No visible active interstitial or alveolar airspace disease. Pleural spaces: Unremarkable. No pleural effusion. No pneumothorax. Heart/Mediastinum: Cardiac structures and configuration with cardiomegaly and arteriosclerosis. Calcified mitral annulus. Bones/joints: Unremarkable for age. XR/XR chest 1V portable [id number] IMPRESSION: Nonacute. Radiation Dose CTDIVOL = (mGy): DLP = (mGy-cm)
--- NOTE | 2021-01-07 21:16 | CTR_ITS ---
PROCEDURE INFORMATION: Exam: CT Head Without Contrast Exam date and time: 01/07/2021 9:16 PM Age: 85 years old Clinical indication: Injury or trauma; Fall; Blunt trauma (contusions or hematomas); Patient HX: Patient found on floor by family today. Family states patient seems more confused than normal. TECHNIQUE: Imaging protocol: Computed tomography of the head without contrast. Radiation optimization: All CT scans at this facility use at least one of these dose optimization techniques: automated exposure control; mA and/or kV adjustment per patient size (includes targeted exams where dose is matched to clinical indication); or iterative reconstruction. COMPARISON: 1. CR XR knees AP WB w LT lmt ORTH 2020-06-02 11:38 2. US ROR carotid duplex BI 2020-09-20 14:46 RADIATION DOSE METRICS: Total DLP (mGy-cm): 858.02 FINDINGS: Brain: Diffuse mild cerebral age related volume loss. Mild patchy low attenuation in the white matter compatible with mild chronic small vessel ischemic disease. No midline shift, mass, fluid collection, or evidence of hemorrhage. Cerebral ventricles: Ventricular enlargement proportional to volume loss. Paranasal sinuses: Visualized sinuses are unremarkable. No fluid levels. Mastoid air cells: Visualized mastoid air cells are well aerated. Bones/joints: Unremarkable. No acute fracture. Soft tissues: Unremarkable. CT/CT head wo con* [id number] IMPRESSION: Mild involutional changes, no acute intracranial abnormality. Radiation Dose CTDIVOL = (mGy): DLP = 858.02 (mGy-cm)
--- NOTE | 2021-01-07 21:16 | CTR_ITS ---
PROCEDURE INFORMATION: Exam: CT Cervical Spine Without Contrast Exam date and time: 01/07/2021 9:16 PM Age: 85 years old Clinical indication: Injury or trauma; Fall; Blunt trauma; Patient HX: Patient found on floor by family today. Family states patient seems more confused than normal. TECHNIQUE: Imaging protocol: Computed tomography images of the cervical spine without contrast. Radiation optimization: All CT scans at this facility use at least one of these dose optimization techniques: automated exposure control; mA and/or kV adjustment per patient size (includes targeted exams where dose is matched to clinical indication); or iterative reconstruction. COMPARISON: 1. CR XR knees AP WB w LT lmt ORTH 2020-06-02 11:[address] head wo con* [id number] 2021-01-07 21:28 RADIATION DOSE METRICS: Total DLP (mGy-cm): 419.94 FINDINGS: Bones/joints: Mild degenerative related alignment abnormalities. Maintained vertebral body heights without fractures. Maintained vertebral body heights. No acute vertebral fracture/subluxation. Discs/Spinal canal/Neural foramina: Diffuse degenerative disc space loss with degenerative disc osteophyte complexes, facet arthropathy, and ligamentum flavum thickening causes up to moderate to severe spinal and foraminal stenosis greatest at C4-C6. Right-sided facet arthritis greatest from C4-C6. Lungs: Lung apices are normal. Soft tissues: Unremarkable. CT/CT cervical spin wo con* [id number] IMPRESSION: No acute vertebral fracture/subluxation. Radiation Dose CTDIVOL = (mGy): DLP = 419.94 (mGy-cm)
--- NOTE | 2021-01-07 21:17 | ECG_ITS ---
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 Measurements Intervals [place] Rate: 76 P: [place]: QRS: -16 QRSD: 122 T: 259 QT: 408 QTc: 460 Interpretive Statements ATRIAL FIBRILLATION MODERATE INTRAVENTRICULAR CONDUCTION DELAY [110+ ms QRS DURATION] Possible old septal myocardial infarction ST DEVIATION AND MODERATE T-WAVE ABNORMALITY, CONSIDER LATERAL ISCHEMIA [-0.1+ mV T-WAVE IN I/aVL/V5/V6] Compared to ECG 04/27/2015 09:02:11 Intraventricular conduction delay now present T-wave abnormality now present Possible ischemia now present Electronically Signed On 01-08-2021 21:59:50 RN GASTROENTEROLOGY by Jean Pierce M.D. [id number]
--- NOTE | 2021-01-07 21:23 | ED_ITS ---
HPI - Neuro Symptoms/Deficit General: Chief Complaint: Neuro Symptoms/Deficit Stated Complaint: Pt possible stroke Time Seen by Provider: 01/07/21 21:16 Source: patient Mode of arrival: ambulatory Limitations: no limitations History of Present Illness: HPI Narrative: 85-year-old female who per daughter has been having increased weakness over the last 1 to 2 weeks some slight co nfusion as well. States that she had a fall today at 1:00 that was not witnessed when they found her she had seemed a little more confused and had a left-sided facial droop no droop noted here no neuro deficits noted here. Family states she has had some difficulty walking but that is not new. Denies any pain elsewhere besides her left ribs from the fall. Associated symptoms: Deny chest pain, nausea or vomiting Review of Systems Const: Denies: fever(s), chills, body aches or change in appetite Eyes: Denies: blurry vision or eye discomfort ENMT: Denies: throat pain or dental pain Card: Denies: chest pain Resp: Denies: dyspnea GI: Denies: abdominal pain, nausea, vomiting or diarrhea : Denies: dysuria Musc: Denies: neck pain or back pain Skin/Breast: Denies: rash Neuro: Reports: weakness in extremities Psych: Denies: depression [place]/Lymph: Denies: easy bruising All/Imm: Denies: urticaria PFSH ED PFSH: Medical History (Updated 01/08/21 @ 00:32 by Carlton Rea MD) Uncontrolled hypertension Social History Smoking and tobacco status: never smoked NIH stroke score NIHSS: Level Of Consciousness - 1a: 0 Level Of Consciousness Questions - 1b: Both Correct Level Of Consciousness Commands - 1c: Both Correct Best Gaze - 2: Normal Visual Mistry - 3: No Visual Loss Facial Palsy - 4: Normal Motor Arm Right - 5: No Drift Motor Arm Left - 5: No Drift Motor Leg Right - 6: No Drift Motor Leg Left - 6: No Drift Limb Ataxia - 7: Absent Sensory - 8: Normal Best Language - 9: No Aphasia Dysarthia - 10: Normal Extinction And Inattention - 11: 0 Score: Total Score: 0 Physical Exam Const: COMMON NORMALS: no acute distress, patient oriented x3 and healthy appearing HENMT: COMMON NORMALS: normocephalic and atraumatic HEAD & SCALP: normocephalic and atraumatic Eye: COMMON NORMALS: Equal, round and reactive pupils present and EOMs intact bilaterally PUPIL: Yes Equal, round and reactive pupils present Neck/C-Spine: COMMON NORMALS: full ROM and supple Chest: COMMONS NORMALS: normal inspection of the chest and normal palpation of entire chest wall Resp: COMMON NORMALS: normal respiratory effort, No retractions, No use of accessory muscles and clear to auscultation bilaterally AUSCULTATION: clear to auscultation bilaterally Cardio: COMMON NORMALS: regular rate, regular rhythm and No murmurs present (Cardio) RATE: regular rate RHYTHM: regular rhythm GI: COMMON NORMALS: Normal to inspection, nondistended, normoactive bowel sounds present, Soft to palpation, non-tender and no masses PALPATION: Yes Soft to palpation Extremity: COMMON NORMALS: normal to inspection and full ROM Neuro: COMMON NORMALS: patient oriented x3, moves all extremities and no focal motor deficits Psych: COMMON NORMALS: mental status grossly normal, Normal thought process present and cooperative THOUGHT PROCESS: Normal thought process present Skin: COMMON NORMALS: no rashes or lesions noted and no wounds GENERAL SKIN EXAM: no rashes or lesions noted Course Vital Signs: Vital signs: Vital Signs Temperature 98.2 F 01/07/21 21:04 Pulse Rate 85 01/07/21 22:10 Respiratory Rate 16 01/07/21 22:10 Blood Pressure 134/72 01/07/21 22:10 Pulse Oximetry 94 01/07/21 22:10 MDM - Neuro Symptoms/Deficit MDM Narrative: Medical decision making narrative: Patient presents here with weakness is since resolved. Patient's ambulating here with her cane is her baseline is requesting discharge CT shows no signs of a stroke. She does have a urinary tract infection we will treat with Keflex she is to follow-up with PCP and return if worsening she understands agrees to plan. Lab Data: Labs: Lab Results 01/07/21 01/07/21 01/07/21 22:42 22:42 22:42 WBC 5.8 10^3/uL 10^3/ uL (4.0-10.0) RBC 3.78 10^6/uL L 10 ^6/uL (4.1-5.3) Hgb 12.4 g/dL g/dL (11.5-15.3) Hct 37.1 % % (37.0-47.0) MCV 98.1 fl fl (81-99) MCH 32.8 pg pg (28.0-34.0) MCHC 33.4 g/dL g/dL (30.0-36.0) RDW 13.0 % % (12.1-15.1) Plt Count 164 10^3/cmm 10^3 /cmm (130-400) MPV 10.1 fL fL (7.4-10.4) Neut % (Auto) 57.9 % % Lymph % (Auto) 27.0 % % [place] % (Auto) 11.6 % % Eos % (Auto) 2.8 % % Baso % (Auto) 0.5 % % Neut # (Auto) 3.35 10^3/uL 10^3 /uL (1.8-7.7) Lymph # (Auto) 1.6 10^3/uL 10^3/ uL (0.8-4.8) [place] # (Auto) 0.7 10^3/uL 10^3/ uL (0.2-0.9) Eos # (Auto) 0.2 10^3/uL 10^3/ uL (0.0-0.8) Baso # (Auto) 0.0 10^3/uL 10^3/ uL (0.0-0.1) Nucleated RBC % (a uto) 0 % % Nucleated RBCs # 0.0 /100WBC /100W BC PT 17.20 SECONDS H S ECONDS (12.1-14.9) INR 1.37 H (0.8-1.2) Sodium 144 mmol/L mmol/L (136-145) Potassium 4.0 mmol/L mmol/L (3.5-5.1) Chloride 110 mmol/L H mmol /L (98-107) Carbon Dioxide 23 mmol/L mmol/L (22-29) Anion Gap 15.0 (5-19) BUN 16 mg/dL mg/dL (8-23) Creatinine 0.8 mg/dL mg/dL (0.5-0.9) GFR Calculation Not Reportable Glucose 120 mg/dL H mg/dL (65-115) Calculated Osmolal ity 300 mOsm/kg H mOs m/kg (285-295) Calcium 8.4 mg/dL L mg/dL (8.5-10.5) Total Bilirubin 0.7 mg/dL mg/dL (0.15-1.2) AST 19 U/L U/L (0-32) ALT 11 U/L U/L (0-33) Alkaline Phosphata se 87 IU/L IU/L (35-105) Total Protein 6.3 g/dL L g/dL (6.6-8.7) Albumin 3.6 g/dL g/dL (3.5-5.2) Globulin 2.7 g/dL g/dL (1.3-4.6) Urine Color Urine Appearance Urine pH Ur Specific Gravit y Urine Protein Urine Glucose (UA) Urine Ketones Urine Blood Urine Nitrate Urine Bilirubin Urine Urobilinogen Ur Leukocyte Wendie ase Urine RBC Urine WBC Ur Squamous Epith Cells Amorphous Sediment Urine Bacteria Urine Mucus 01/07/21 23:17 WBC RBC Hgb Hct MCV MCH MCHC RDW Plt Count MPV Neut % (Auto) Lymph % (Auto) [place] % (Auto) Eos % (Auto) Baso % (Auto) Neut # (Auto) Lymph # (Auto) [place] # (Auto) Eos # (Auto) Baso # (Auto) Nucleated RBC % (a uto) Nucleated RBCs # PT INR Sodium Potassium Chloride Carbon Dioxide Anion Gap BUN Creatinine GFR Calculation Glucose Calculated Osmolal ity Calcium Total Bilirubin AST ALT Alkaline Phosphata se Total Protein Albumin Globulin Urine Color Yellow (Yellow) Urine Appearance Sl cloudy A (CLEAR) Urine pH 5 (5-7) Ur Specific Gravit y 1.020 (1.005-1.030) Urine Protein 3+ H (Negative) Urine Glucose (UA) Norm (Normal) Urine Ketones Negative (Negative) Urine Blood 3+ H (Negative) Urine Nitrate Negative (Negative) Urine Bilirubin 1+ H (Negative) Urine Urobilinogen 4 mg/dL H mg/dL (Negative) Ur Leukocyte Wendie ase Trace H (Negative) Urine RBC >100 /hpf H /hpf (0-2) Urine WBC 5-10 /hpf H /hpf (0-5) Ur Squamous Epith Cells 25-40 /hpf H /hpf (0-5) Amorphous Sediment 4+ /hpf /hpf Urine Bacteria 2+ /hpf H /hpf (NONE) Urine Mucus 2+ /hpf /hpf Imaging Data^: CT Head: Radiologist's impression: [address] [place] [address] CT Scan Report Signed Patient: Mercedez Ramos Unit #: [id number] : 1935 Age/Sex: 85 / F ADM Date: 01/07/21 Loc: ER Room/Bed: Attending Dr: Ordering Provider/Ordering MD: Carlton Rea MD Date of Service: 01/07/21 Procedure(s): CT head wo con* [id number] Accession Number(s): [id number] Report Number: [id number] PROCEDURE INFORMATION: Exam: CT Head Without Contrast Exam date and time: 01/07/2021 9:16 PM Age: 85 years old Clinical indication: Injury or trauma; Fall; Blunt trauma (contusions or hematomas); Patient HX: Patient found on floor by family today. Family states patient seems more confused than normal. TECHNIQUE: Imaging protocol: Computed tomography of the head without contrast. Radiation optimization: All CT scans at this facility use at least one of these dose optimization techniques: automated exposure control; mA and/or kV adjustment per patient size (includes targeted exams where dose is matched to clinical indication); or iterative reconstruction. COMPARISON: 1. CR XR knees AP WB w LT lmt ORTH 2020-06-02 11:38 2. US ROR carotid duplex BI 2020-09-20 14:46 RADIATION DOSE METRICS: Total DLP (mGy-cm): 858.02 FINDINGS: Brain: Diffuse mild cerebral age related volume loss. Mild patchy low attenuation in the white matter compatible with mild chronic small vessel ischemic disease. No midline shift, mass, fluid collection, or evidence of hemorrhage. Cerebral ventricles: Ventricular enlargement proportional to volume loss. Paranasal sinuses: Visualized sinuses are unremarkable. No fluid levels. Mastoid air cells: Visualized mastoid air cells are well aerated. Bones/joints: Unremarkable. No acute fracture. Soft tissues: Unremarkable. CT/CT head wo con* [id number] IMPRESSION: Mild involutional changes, no acute intracranial abnormality. Radiation Dose CTDIVOL = (mGy): DLP = 858.02 (mGy-cm) Dictated By: Gomez Trujillo MD Signed By: Gomez Trujillo MD Signed Date/Time: 01/07/212145 DD/ [address]: Radiologist's impression: [facility] [address] [facility] [place] [address] CT Scan Report Signed Patient: Mercedez Ramos Unit #: [id number] : 1935 Age/Sex: 85 / F ADM Date: 01/07/21 Loc: ER Room/Bed: Attending Dr: Ordering Provider/Ordering MD: Carlton Rea MD Date of Service: 01/07/21 Procedure(s): CT cervical spin wo con* [id number] Accession Number(s): [id number] Report Number: [id number] PROCEDURE INFORMATION: Exam: CT Cervical Spine Without Contrast Exam date and time: 01/07/2021 9:16 PM Age: 85 years old Clinical indication: Injury or trauma; Fall; Blunt trauma; Patient HX: Patient found on floor by family today. Family states patient seems more confused than normal. TECHNIQUE: Imaging protocol: Computed tomography images of the cervical spine without contrast. Radiation optimization: All CT scans at this facility use at least one of these dose optimization techniques: automated exposure control; mA and/or kV adjustment per patient size (includes targeted exams where dose is matched to clinical indication); or iterative reconstruction. COMPARISON: 1. CR XR knees AP WB w LT lmt ORTH 2020-06-02 11:[address] head wo con* [id number] 2021-01-07 21:28 RADIATION DOSE METRICS: Total DLP (mGy-cm): 419.94 FINDINGS: Bones/joints: Mild degenerative related alignment abnormalities. Maintained vertebral body heights without fractures. Maintained vertebral body heights. No acute vertebral fracture/subluxation. Discs/Spinal canal/Neural foramina: Diffuse degenerative disc space loss with degenerative disc osteophyte complexes, facet arthropathy, and ligamentum flavum thickening causes up to moderate to severe spinal and foraminal stenosis greatest at C4-C6. Right-sided facet arthritis greatest from C4-C6. Lungs: Lung apices are normal. Soft tissues: Unremarkable. CT/CT cervical spin wo con* [id number] IMPRESSION: No acute vertebral fracture/subluxation. Radiation Dose CTDIVOL = (mGy): DLP = 419.94 (mGy-cm) Dictated By: Gomez Trujillo MD Signed By: Gomez Trujillo MD Signed Date/Time: 01/07/212146 DD/ 15 CXR: Attestation: I personally reviewed and interpreted this imaging study as follows: Radiologist's impression: [address] [address] XRay Report Signed Patient: Mercedez Ramos Unit #: [id number] : 1935 Age/Sex: 85 / F ADM Date: 01/07/21 Loc: ER Room/Bed: Attending Dr: Ordering Provider/Ordering MD: Carlton Rea MD Date of Service: 01/07/21 Procedure(s): XR chest 1V portable [id number] Accession Number(s): [id number] Report Number: [id number] PROCEDURE INFORMATION: Exam: XR Chest Exam date and time: 01/07/2021 9:16 PM Age: 85 years old Clinical indication: Injury or trauma; Fall; Blunt trauma (contusions or hematomas); Injury date: 01/07/2021; Injury details: Fell around 1pm TECHNIQUE: Imaging protocol: XR of the chest. Views: 1 view. Total images: 1 COMPARISON: CT chest abd pel w con* 04/26/2020 1:59:56 PM FINDINGS: Lungs: No visible active interstitial or alveolar airspace disease. Pleural spaces: Unremarkable. No pleural effusion. No pneumothorax. Heart/Mediastinum: Cardiac structures and configuration with cardiomegaly and arteriosclerosis. Calcified mitral annulus. Bones/joints: Unremarkable for age. XR/XR chest 1V portable [id number] IMPRESSION: Nonacute. Radiation Dose CTDIVOL = (mGy): DLP = (mGy-cm) Dictated By: Keanu Bello Signed By: Keanu Bello Signed Date/Time: 01/07/212149 DD/ 15 EKG Data^: EKG 1: Attestation: I personally reviewed and interpreted this EKG as follows: EKG interpretation date: 01/07/21 EKG interpretation time: 22:13 Interpretation: afib hr [address] or t wave abnormalities qrs 122 qtc 438 Discharge Plan Discharge Patient Disposition: Home Clinical Impression: Weakness Acute cystitis Qualifiers: Hematuria presence: without hematuria Qualified Code(s): N30.00 - Acute cystitis without hematuria Condition: Stable Prescriptions: New cephalexin 500 mg capsule 500 mg PO TID 7 Days Qty: 21 RF: 0 No Action docusate sodium [Colace] 100 mg capsule 100 mg PO DAILY RF: 0 aspirin 325 mg tablet 325 mg PO DAILY RF: 0 calcium carbonate [Calcium 600] 600 mg calcium (1,500 mg) tablet 600 mg PO DAILY RF: 0 Toviaz 4 mg tablet extended release 24 hr 4 mg PO DAILY RF: 0 levothyroxine 50 mcg capsule 50 mcg PO DAILY RF: 0 valsartan-hydrochlorothiazide 320-25 mg tablet 1 tab PO DAILY RF: 0 Xarelto 20 mg tablet 20 mg PO DAILY RF: 0 pantoprazole 40 mg tablet,delayed release (DR/EC) 40 mg PO DAILY RF: 0 levothyroxine 112 mcg capsule 112 mcg PO DAILY RF: 0 rosuvastatin [Crestor] 40 mg tablet 40 mg PO DAILY RF: 0 carvedilol [Coreg] 6.25 mg tablet 9.375 mg PO BID Qty: 90 RF: 3 Discharge Orders: Discharge ED (Routine); Ordered 01/08/21 Ordered By: Carlton Rea Referrals: Torey Cade MD [Primary Care Provider] - 1-3 days Discharge Diet: Advance as tolerated Discharge Activity: Resume usual activity Patient Instructions: Urinary Tract Infection in Women (ED), Weakness (ED) Coding Level of Care Code ED Internal Medicine Nurse for Chg Fwd Exam Comprehensive
[2021-01-07 22:10] VITALS: BP 134/72; PULSE 85; RESP 16; O2SAT 94
[2021-01-07 22:58] LABS: Basophils % 0.5 %; Eosinophils # 0.2 10^3/uL (0.0-0.8); Eosinophils % 2.8 %; Hematocrit 37.1 % (37.0-47.0); Hemoglobin 12.4 g/dL (11.5-15.3); Lymphocytes # 1.6 10^3/uL (0.8-4.8); Mean Corpuscular HGB Conc 33.4 g/dL (30.0-36.0); Mean Corpuscular Hemoglobin 32.8 pg (28.0-34.0); Mean Corpuscular Volume 98.1 fl (81-99); Mean Platelet Volume 10.1 fL (7.4-10.4); Monocytes # 0.7 10^3/uL (0.2-0.9); Monocytes % 11.6 %; Neutrophils # 3.35 10^3/uL (1.8-7.7); Neutrophils % 57.9 %; Nucleated Red Blood Cells % 0 %; Platelet Count 164 10^3/cmm (130-400); Red Blood Count 3.78 10^6/uL (4.1-5.3); White Blood Count 5.8 10^3/uL (4.0-10.0)
[2021-01-07 23:06] LABS: INR 1.37 (0.8-1.2)
[2021-01-07 23:15] LABS: Alanine Aminotransferase 11 U/L (0-33); Albumin Level 3.6 g/dL (3.5-5.2); Alkaline Phosphatase 87 IU/L (35-105); Aspartate Amino Transferase 19 U/L (0-32); Blood Urea Nitrogen 16 mg/dL (8-23); Calcium 8.4 mg/dL (8.5-10.5); Carbon Dioxide 23 mmol/L (22-29); Chloride 110 mmol/L (98-107); Globulin 2.7 g/dL (1.3-4.6); Glucose 120 mg/dL (65-115); Osmolality Calculated 300 mOsm/kg (285-295); Sodium 144 mmol/L (136-145); Total Bilirubin 0.7 mg/dL (0.15-1.2); Total Protein 6.3 g/dL (6.6-8.7)
[2021-01-08 00:04] LABS: Urine Color Yellow (Yellow)
[2021-01-08 00:05] LABS: Add Urine Microscopic? YES; Bilirubin Urine 1+ (Negative); Blood Urine 3+ (Negative); Glucose Urine UA Norm (Normal); Ketones Urine Negative (Negative); Leukocyte Esterase Urine Trace (Negative); Nitrate Urine Negative (Negative); Protein Urine 3+ (Negative); Urobilinogen Urine 4 mg/dL (Negative); pH Urine 5 (5-7)
[2021-01-08 00:06] LABS: Add Urine Culture? No; Amorphous Sediment Urine 4+ /hpf; Bacteria Urine 2+ /hpf; Mucus Urine 2+ /hpf; RBC Urine >100 /hpf (0-2); Squamous Epithelial Cell Urine 25-40 /hpf (0-5)
[2021-01-08 00:44] VITALS: BP 164/107; PULSE 62; RESP 18; TEMP 36.8; O2SAT 95
== END 2021-01-08 00:46 | disposition home or self-care (01) ==
PROVIDERS: Emergency Provider Emergency Medicine; PCP Family Medicine
DX: R53.1 Weakness (principal); N30.00 Acute cystitis without hematuria; Z79.82 Long term (current) use of aspirin; I10 Essential (primary) hypertension
CPT/HCPCS: 36415; 70450; 71045; 72125; 80053; 81001; 81003; 85025; 85610; 93005; 99283

== ENCOUNTER → 2021-08-03 10:06 | Outpatient (BNVA) | payer MEDICAID, SELFPAY | PROVIDERS: PCP Family Medicine; Visit Provider Nurse Practitioner Family | DX: I48.91 Unspecified atrial fibrillation (principal) | CPT/HCPCS: 93005; 99213; 99214 ==

== ENCOUNTER 2022-01-23 14:17 | Emergency (ER) | payer MEDICAID, SELFPAY ==
[2022-01-23 14:18] VITALS: BP 141/72; PULSE 76; RESP 16; TEMP 36.7; O2SAT 97
--- NOTE | 2022-01-23 14:19 | ED_ITS ---
HPI - SOB/Dyspnea General: Chief Complaint: Shortness of Breath/Dyspnea Stated Complaint: SOB/ WEAKNESS Time Seen by Provider: 01/23/22 14:18 History of Present Illness: HPI Narrative: Ms Ramos is a 86-year-old Nepalese-speaking lady with significant past medical history of atrial fibrillation and hypertension presenting to the emergency department due to chest discomfort. Had a short lasting episode with fluttering in her heart over the weekend however at approximately 10 AM has had a more constant episode. Mild associated shortness of breath and pressure in the middle of her chest. Denies other infectious symptoms or changes in health. Reports compliance with medication regimen, perhaps a new change in medications though unsure of exactly which one. No other specific changes in health, exacerbating, or alleviating factors identified. Pertinent past history: other Onset (ago): hour(s) Timing: intermittent Severity: moderate Exacerbating factors: nothing Relieving factors: nothing Known history of: other Associated symptoms: Reports chest pain, palpitations and other Review of Systems General: Reports: 10 or more systems reviewed and unremarkable except in HPI and below Card: Reports: chest pain and palpitations PFSH ED PFSH: Medical History Adenocarcinoma of sigmoid colon Atrial fibrillation Hyperlipidemia Hypothyroidism Type 2 diabetes mellitus Uncontrolled hypertension Surgical History History of exploratory laparotomy History of umbilical hernia repair History of ventral hernia repair Social History Smoking and tobacco status: never smoked Physical Exam Const: COMMON NORMALS: alert GENERAL APPEARANCE: cooperative and well developed HENMT: COMMON NORMALS: normocephalic and atraumatic HEAD & SCALP: normocephalic and atraumatic THROAT: posterior oropharynx normal Eye: COMMON NORMALS: conjunctivae normal CONJUNCTIVA: Yes conjunctivae normal SCLERA: sclerae normal Neck/C-Spine: COMMON NORMALS: supple GENERAL: Yes trachea midline Resp: COMMON NORMALS: normal respiratory effort and clear to auscultation bilaterally EFFORT & INSPECTION: Yes able to speak in complete sentences AUSCULTATION: clear to auscultation bilaterally Cardio: COMMON NORMALS: regular rate and regular rhythm RATE: regular rate RHYTHM: regular rhythm GI: COMMON NORMALS: Soft to palpation PALPATION: Yes Soft to palpation and No Tenderness to palpation present (GI) Extremity: GENERAL: Yes normal exam except as noted and No edema Neuro: COMMON NORMALS: moves all extremities SENSORIUM/ORIENTATION: Yes alert and No Orientation impaired Psych: COMMON NORMALS: mental status grossly normal and Normal thought process present THOUGHT PROCESS: Normal thought process present Course Vital Signs: Vital signs: Vital Signs Temperature 98.0 F 01/23/22 14:18 Pulse Rate 84 01/23/22 18:51 Respiratory Rate 18 01/23/22 18:51 Blood Pressure 145/80 01/23/22 18:51 Pulse Oximetry 96 01/23/22 18:51 Oxygen Delivery Me thod 01/23/22 14:18 MDM - SOB/Dyspnea Medical Decision Making 86-year-old lady presenting with palpitations associated with shortness of breath and chest discomfort. Feels improved and patient is nontoxic on exam. EKG shows atrial fibrillation with nonspecific ST segment abnormalities, no STEMI. No significant hematologic or metabolic abnormalities to explain symptoms. The 2-hour troponin is negative. TSH elevated with normal free T4. No urinary tract infection given squamous epithelial contamination and no urinary symptoms. Chest x-ray with no lobar consolidation or pneumothorax. Most likely etiology of the patient's symptoms is chest discomfort of uncertain etiology. The results of ED evaluation were discussed with the patient including possible disposition options. I discussed risk stratification by heart score and estimated risk of major adverse cardiac events. The patient wishes to proceed with outpatient management. I discussed prescriptions and/or symptomatic cares (if applicable) including appropriate and responsible use, followup plan, and return precautions. The patient verbalized understanding and felt safe for discharge. Medical Records I reviewed the patient's medical records. Lab Data I reviewed the patient's lab results. 01/23/22 15:49 01/23/22 15:49 Labs/Radiology: Radiology Impressions Chest X-Ray 01/23/22 14:28 IMPRESSION: No significant change from previous Laboratory Results WBC 5.7 10^3/uL (4.0-10.0) 01/23/22 15:49 RBC 3.85 10^6/uL (4.1-5.3) L 01/23/22 15:49 Hgb 12.6 g/dL (11.5-15.3) 01/23/22 15:49 Hct 37.9 % (37.0-47.0) 01/23/22 15:49 MCV 98.4 fl (81-99) 01/23/22 15:49 MCH 32.7 pg (28.0-34.0) 01/23/22 15:49 MCHC 33.2 g/dL (30.0-36.0) 01/23/22 15:49 RDW 13.0 % (12.1-15.1) 01/23/22 15:49 Plt Count 194 10^3/cmm (130-400) 01/23/22 15:49 MPV 10.2 fL (7.4-10.4) 01/23/22 15:49 Neut % (Auto) 71.9 % 01/23/22 15:49 Lymph % (Auto) 18.0 % 01/23/22 15:49 [place] % (Auto) 7.6 % 01/23/22 15:49 Eos % (Auto) 1.6 % 01/23/22 15:49 Baso % (Auto) 0.7 % 01/23/22 15:49 Neut # (Auto) 4.07 10^3/uL (1.8-7.7) 01/23/22 15:49 Lymph # (Auto) 1.0 10^3/uL (0.8-4.8) 01/23/22 15:49 [place] # (Auto) 0.4 10^3/uL (0.2-0.9) 01/23/22 15:49 Eos # (Auto) 0.1 10^3/uL (0.0-0.8) 01/23/22 15:49 Baso # (Auto) 0.0 10^3/uL (0.0-0.1) 01/23/22 15:49 Nucleated RBC % (auto) 0 % 01/23/22 15:49 Nucleated RBCs # 0.0 /100WBC 01/23/22 15:49 Sodium 143 mmol/L (136-145) 01/23/22 15:49 Potassium 4.2 mmol/L (3.5-5.1) 01/23/22 15:49 Chloride 106 mmol/L (98-107) 01/23/22 15:49 Carbon Dioxide 28 mmol/L (22-29) 01/23/22 15:49 Anion Gap 13.2 (5-19) 01/23/22 15:49 BUN 17 mg/dL (8-23) 01/23/22 15:49 Creatinine 0.8 mg/dL (0.5-0.9) 01/23/22 15:49 GFR Calculation Not Reportable 01/23/22 15:49 Glucose 107 mg/dL (65-115) 01/23/22 15:49 Calculated Osmolality 298 mOsm/kg (285-295) H 01/23/22 15:49 Lactic Acid 1.8 mmol/L (0.5-2.2) 01/23/22 15:50 Calcium 9.2 mg/dL (8.5-10.5) 01/23/22 15:49 Magnesium 1.8 mg/dL (1.7-2.3) 01/23/22 15:49 Total Bilirubin 0.6 mg/dL (0.15-1.2) 01/23/22 15:49 AST 16 U/L (0-32) 01/23/22 15:49 ALT 10 U/L (0-33) 01/23/22 15:49 Alkaline Phosphatase 99 U/L (35-105) 01/23/22 15:49 Troponin T Baseline 14 ng/L (0-10) H 01/23/22 15:50 Troponin T 120 Minute 13.02 ng/L (0-10) H 01/23/22 17:32 Delta Troponin T -0.98 ABS# (0-10) L 01/23/22 17:32 C-Reactive Protein 3.0 mg/L (0.0-4.9) 01/23/22 15:49 Total Protein 6.3 g/dL (6.6-8.7) L 01/23/22 15:49 Albumin 3.7 g/dL (3.5-5.2) 01/23/22 15:49 Globulin 2.6 g/dL (1.3-4.6) 01/23/22 15:49 Procalcitonin 0.02 ng/mL (0-0.5) 01/23/22 15:49 TSH 5.72 uIU/mL (0.27-4.20) H 01/23/22 15:49 Free T4 1.02 ng/dL (0.82-1.77) 01/23/22 15:49 Urine Color Yellow (Yellow) 01/23/22 16:41 Urine Appearance Clear (CLEAR) 01/23/22 16:41 Urine pH 5 (5-7) 01/23/22 16:41 Ur Specific [place] 1.020 (1.005-1.030) 01/23/22 16:41 Urine Protein Neg (Negative) 01/23/22 16:41 Urine Glucose (UA) Norm (Normal) 01/23/22 16:41 Urine Ketones Negative (Negative) 01/23/22 16:41 Urine Blood 2+ (Negative) H 01/23/22 16:41 Urine Nitrate Negative (Negative) 01/23/22 16:41 Urine Bilirubin Neg (Negative) 01/23/22 16:41 Urine Urobilinogen Norm mg/dL (Negative) 01/23/22 16:41 Ur Leukocyte Esterase Negative (Negative) 01/23/22 16:41 Urine RBC None /hpf (0-2) 01/23/22 16:41 Urine WBC None /hpf (0-5) 01/23/22 16:41 Ur Squamous Epith Cells 15-25 /hpf (0-5) H 01/23/22 16:41 Ur Transition Epith Cell 0-4 /hpf 01/23/22 16:41 Ur Renal Epithelial Cell 2 /hpf 01/23/22 16:41 Amorphous Sediment Not Reportable 01/23/22 16:41 Urine Bacteria 4+ /hpf (NONE) H 01/23/22 16:41 Discharge Plan Discharge Patient Disposition: Home Clinical Impression: Chest pain, Shortness of breath Condition: Stable Prescriptions: No Action docusate sodium [Colace] 100 mg capsule 100 mg PO DAILY aspirin 325 mg tablet 325 mg PO DAILY calcium carbonate [Calcium 600] 600 mg calcium (1,500 mg) tablet 600 mg PO DAILY Toviaz 4 mg tablet extended release 24 hr 4 mg PO DAILY levothyroxine 50 mcg capsule 50 mcg PO DAILY valsartan-hydrochlorothiazide 320-25 mg tablet 1 tab PO DAILY Xarelto 20 mg tablet 20 mg PO DAILY Rx Instructions: must administer with evening meal pantoprazole 40 mg tablet,delayed release (DR/EC) 40 mg PO BEDTIME levothyroxine 112 mcg capsule 112 mcg PO DAILY rosuvastatin [Crestor] 40 mg tablet 40 mg PO BEDTIME carvedilol [Coreg] 6.25 mg tablet 6.25 mg PO BID Qty: 90 3RF Rx Instructions: must administer with a meal/food isosorbide mononitrate 120 mg tablet extended release 24 hr 120 mg PO DAILY ezetimibe 10 mg tablet 10 mg PO DAILY Discharge Orders: Discharge ED (Routine); Ordered 01/23/22 Ordered By: Vini Carvajal Referrals: Torey Cade MD [Primary Care Provider] - Discharge Diet: Usual diet Discharge Activity: Increase activity as tolerated Patient Instructions: Chest Pain (ED), Shortness of Breath (ED) Activity Restrictions/Additional Instructions: Thank you for visiting the emergency department. You were seen in fact for chest pain and shortness of breath. The exact cause of your symptoms is unclear though as discussed you are at elevated risk for major adverse cardiac events. You are choosing to have further evaluation in the outpatient setting. I will message case management for cardiology follow-up. Please follow-up with your primary care provider as well. Return to the emergency department for worsening symptoms or anything else that you are concerned about a feel needs emergency department evaluation. Coding Level of Care Code ED Dental Amalgam Processor for Aylin Tracy
--- NOTE | 2022-01-23 14:28 | ECG_ITS ---
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 Measurements Intervals [place] Rate: 69 P: 0 MA: 0 QRS: -28 QRSD: 102 T: 7 QT: 393 QTc: 423 Interpretive Statements ATRIAL FIBRILLATION SEPTAL MYOCARDIAL INFARCTION , OF INDETERMINATE AGE [40+ ms Q WAVE IN V1/V2] Compared to ECG 01/07/2021 22:13:00 Intraventricular conduction delay no longer present T-wave abnormality no longer present Possible ischemia no longer present Myocardial infarct finding still present Electronically Signed On 01-23-2022 19:03:18 ENVIRONMENTAL STUDIES DEPARTMENT CHAIR by Rob Lindsey M.D. [email or web address]
--- NOTE | 2022-01-23 14:28 | XR_ITS ---
WS: [id number] EXAMINATION: XR chest 1V portable [id number] REASON FOR EXAM: sob COMPARISON: 01/07/2021 ORDER DATE: 01/23/2022 2:30 PM TECHNIQUE: A single, portable frontal chest x-ray was obtained. X-RAY FINDINGS: Lungs: No visible active interstitial or alveolar airspace disease. Pleural spaces: Unremarkable. No pleural effusion. No pneumothorax. Heart/Mediastinum: Cardiac structures and configuration with cardiomegaly and aortic arteriosclerosis. Calcified mitral annulus. Bones/joints: Unremarkable for age. XR/XR chest 1V portable [id number] IMPRESSION: No significant change from previous
[2022-01-23] MEDS: aspirin 81 mg Chew Tablet 324 MG PO (15:46)
[2022-01-23 16:24] LABS: Basophils % 0.7 %; Eosinophils # 0.1 10^3/uL (0.0-0.8); Eosinophils % 1.6 %; Hematocrit 37.9 % (37.0-47.0); Hemoglobin 12.6 g/dL (11.5-15.3); Mean Corpuscular HGB Conc 33.2 g/dL (30.0-36.0); Mean Corpuscular Hemoglobin 32.7 pg (28.0-34.0); Mean Corpuscular Volume 98.4 fl (81-99); Mean Platelet Volume 10.2 fL (7.4-10.4); Monocytes # 0.4 10^3/uL (0.2-0.9); Monocytes % 7.6 %; Neutrophils # 4.07 10^3/uL (1.8-7.7); Neutrophils % 71.9 %; Nucleated Red Blood Cells % 0 %; Platelet Count 194 10^3/cmm (130-400); Red Blood Count 3.85 10^6/uL (4.1-5.3); White Blood Count 5.7 10^3/uL (4.0-10.0)
[2022-01-23 16:31] LABS: Lactic Sepsis W/Reflex 1.8 mmol/L (0.5-2.2)
[2022-01-23 16:35] LABS: Troponin(5th) Baseline 14 ng/L (0-10)
[2022-01-23 16:41] LABS: Procalcitonin 0.02 ng/mL (0-0.5); Thyroid Stimulating Hormone 5.72 uIU/mL (0.27-4.20)
[2022-01-23 16:53] LABS: Alanine Aminotransferase 10 U/L (0-33); Albumin Level 3.7 g/dL (3.5-5.2); Alkaline Phosphatase 99 U/L (35-105); Anion Gap 13.2 (5-19); Aspartate Amino Transferase 16 U/L (0-32); Blood Urea Nitrogen 17 mg/dL (8-23); Calcium 9.2 mg/dL (8.5-10.5); Carbon Dioxide 28 mmol/L (22-29); Chloride 106 mmol/L (98-107); Globulin 2.6 g/dL (1.3-4.6); Glucose 107 mg/dL (65-115); Magnesium 1.8 mg/dL (1.7-2.3); Osmolality Calculated 298 mOsm/kg (285-295); Potassium 4.2 mmol/L (3.5-5.1); Sodium 143 mmol/L (136-145); Total Bilirubin 0.6 mg/dL (0.15-1.2); Total Protein 6.3 g/dL (6.6-8.7)
[2022-01-23 16:59] VITALS: BP 118/72; O2SAT 96
[2022-01-23 17:17] LABS: Add Urine Microscopic? YES; Bilirubin Urine Neg (Negative); Blood Urine 2+ (Negative); Glucose Urine UA Norm (Normal); Ketones Urine Negative (Negative); Leukocyte Esterase Urine Negative (Negative); Nitrate Urine Negative (Negative); Protein Urine Neg (Negative); Urine Appearance Clear (CLEAR); Urine Color Yellow (Yellow); Urobilinogen Urine Norm (Negative); pH Urine 5 (5-7)
[2022-01-23 17:18] LABS: Free T4 Free Thyroxine 1.02 ng/dL (0.82-1.77)
[2022-01-23 17:18] LABS: Add Urine Culture? Yes; Bacteria Urine 4+ /hpf; Renal Epithelial Cells Urine 2 /hpf; Squamous Epithelial Cell Urine 15-25 /hpf (0-5); Transitional Epi Cells Urine 0-4 /hpf
[2022-01-23 18:05] LABS: Troponin 5 2HR 13.02 ng/L (0-10)
[2022-01-23 18:13] LABS: Troponin 5 2HR Delta -0.98 ABS# (0-10)
[2022-01-23 18:51] VITALS: BP 145/80; PULSE 84; RESP 18; O2SAT 96
== END 2022-01-23 19:38 | disposition home or self-care (01) ==
PROVIDERS: Emergency Provider Emergency Medicine; PCP Family Medicine
DX: R07.9 Chest pain, unspecified (principal); R06.02 Shortness of breath; Z79.82 Long term (current) use of aspirin; E78.5 Hyperlipidemia, unspecified; E11.9 Type 2 diabetes mellitus without complications; I10 Essential (primary) hypertension; Z85.038 Personal history of other malignant neoplasm of large intestine
CPT/HCPCS: 36415; 71045; 80053; 81001; 83605; 83735; 84145; 84439; 84443; 84484; 85025; 86140; 87040; 87086; 93005; 99285

== ENCOUNTER 2023-02-08 08:12 | Emergency (ER) | payer MEDICAID, SELFPAY ==
[2023-02-08 08:23] VITALS: BP 202/100; PULSE 89; RESP 17; TEMP 36.9; O2SAT 94; BMI 28.7
--- NOTE | 2023-02-08 08:24 | W.ED.BACK ---
HPI - Back Pain/Injury General: Chief Complaint: Back Pain/Injury Stated Complaint: back pains Time Seen by Provider: 02/08/23 08:15 Source: patient Mode of arrival: ambulatory History of Present Illness: 87-year-old female with chronic back pain worsening the right lower side it has been progressively worsening over the last 3 to 4 days. She was seen 2 days ago at the walk-in clinic and given prednisone. He is worsening since then. She also reports slight burning with urination. No fevers sweats or chills. MD elicited complaint: back pain Pertinent past history: prior back pain Onset (ago): minute(s) Radiation: none Exacerbating factors: movement Relieving factors: none Associated symptoms: Deny abdominal pain, chills, dysuria, fever(s) or urinary urgency Review of Systems Const: Denies: fever(s) or chills Card: Denies: chest pain Resp: Denies: dyspnea GI: Denies: abdominal pain : Denies: dysuria, urinary frequency or urinary urgency Musc: Denies: neck pain or back pain Skin/Breast: Denies: rash PFSH ED PFSH: Medical History Hyperlipidemia Adenocarcinoma of sigmoid colon Hypothyroidism Type 2 diabetes mellitus Atrial fibrillation Uncontrolled hypertension Surgical History History of umbilical hernia repair History of exploratory laparotomy History of ventral hernia repair Social History Smoking and tobacco/nicotine status: never used tobacco/nicotine Physical Exam Const: COMMON NORMALS: no acute distress GENERAL APPEARANCE: cooperative and comfortable ORIENTATION/CONSCIOUSNESS: Yes awake, Yes oriented to person, Yes oriented to place and Yes oriented to time HENMT: COMMON NORMALS: normocephalic, atraumatic and hearing grossly normal bilaterally HEAD & SCALP: normocephalic and atraumatic Resp: COMMON NORMALS: normal respiratory effort, No retractions, No use of accessory muscles and clear to auscultation bilaterally AUSCULTATION: clear to auscultation bilaterally Cardio: COMMON NORMALS: regular rate, regular rhythm and No murmurs present (Cardio) RATE: regular rate RHYTHM: regular rhythm GI: COMMON NORMALS: Soft to palpation and No hepatosplenomegaly present AUSCULTATION: Yes normoactive bowel sounds PALPATION: Yes Soft to palpation, No Tenderness to palpation present (GI), No Guarding due to palpation present (GI) and Yes No hepatosplenomegaly present Extremity: COMMON NORMALS: normal to inspection, capillary refill normal, no clubbing, cyanosis or edema, no calf tenderness and no pedal edema Neuro: SENSORIUM/ORIENTATION: Yes oriented to person, Yes oriented to place and Yes oriented to time Skin: COMMON NORMALS: no rashes or lesions noted GENERAL SKIN EXAM: no rashes or lesions noted Course Vital Signs: Vital signs: Vital Signs Temperature 98.5 F 02/08/23 08:23 Pulse Rate 89 02/08/23 08:23 Respiratory Rate 17 02/08/23 08:23 Blood Pressure 202/100 02/08/23 08:23 Pulse Oximetry 94 02/08/23 08:23 Oxygen Delivery Me thod Room Air 02/08/23 08:23 MDM - Back Pain/Injury Medical Decision Making Musculoskeletal low back pain no CVA tenderness. UA did show a few white blood cells per high-power field but not proportionate to the degree of pain. Nitrite positive leukocyte Estrace negative there was a moderate amount of squamous cells as well. Will add muscle relaxer. Await culture results for consideration of antibiotics. No history of trauma this is been progressive onset indeterminate age compression fractures on the CT but the pain is much lower than that level so I do not think those are acute. She has significant arthritic changes to her plain films that she does not have any red flag symptoms at this time treat symptomatically if not improving may need MRI. Medical Records I reviewed the patient's medical records. Labs I reviewed the patient's lab results. Radiology Impressions Lumbar Spine X-Ray 02/08/23 08:34 IMPRESSION: 1. Mild wedging of T10 and T11 of indeterminate age. 2. Moderate degenerative disc disease is seen in the visualized thoracolumbar spine. 3. Consider MRI to further assess if clinically warranted. Laboratory Results Urine Color Yellow (Yellow) 02/08/23 09:43 Urine Appearance Hazy (CLEAR) A 02/08/23 09:43 Urine pH 6 (5-7) 02/08/23 09:43 Ur Specific [place] 1.010 (1.005-1.030) 02/08/23 09:43 Urine Protein Neg (Negative) 02/08/23 09:43 Urine Glucose (UA) Norm (Normal) 02/08/23 09:43 Urine Ketones Negative (Negative) 02/08/23 09:43 Urine Blood Neg (Negative) 02/08/23 09:43 Urine Nitrate Positive (Negative) H 02/08/23 09:43 Urine Bilirubin Neg (Negative) 02/08/23 09:43 Urine Urobilinogen Norm mg/dL (Negative) 02/08/23 09:43 Ur Leukocyte Esterase Negative (Negative) 02/08/23 09:43 Urine RBC 0-4 /hpf (0-2) H 02/08/23 09:43 Urine WBC 5-10 /hpf (0-5) H 02/08/23 09:43 Ur Squamous Epith Cells 0-4 /hpf (0-5) H 02/08/23 09:43 Amorphous Sediment Not Reportable 02/08/23 09:43 Urine Bacteria 4+ /hpf (NONE) H 02/08/23 09:43 All radiology interpretation(s) finalized by discharge Discharge Plan Discharge Patient Disposition: Home Clinical Impression: Strain of lumbar region Condition: Stable Prescriptions: New tizanidine 4 mg tablet 2 mg PO Q6H PRN (Reason: muscle spasticity) Qty: 20 0RF Rx Instructions: do not exceed 3 doses per 24 hrs diclofenac sodium 75 mg tablet,delayed release (DR/EC) 75 mg PO Q12H PRN (Reason: pain) Qty: 20 0RF No Action docusate sodium [Colace] 100 mg capsule 100 mg PO DAILY aspirin 325 mg tablet 325 mg PO DAILY calcium carbonate [Calcium 600] 600 mg calcium (1,500 mg) tablet 600 mg PO DAILY Toviaz 4 mg tablet extended release 24 hr 4 mg PO DAILY valsartan-hydrochlorothiazide 320-25 mg tablet 1 tab PO DAILY Xarelto 20 mg tablet 20 mg PO DAILY Rx Instructions: must administer with evening meal pantoprazole 40 mg tablet,delayed release (DR/EC) 40 mg PO BEDTIME levothyroxine 112 mcg capsule 112 mcg PO DAILY rosuvastatin [Crestor] 40 mg tablet 40 mg PO BEDTIME carvedilol [Coreg] 6.25 mg tablet 6.25 mg PO BID Qty: 90 3RF Rx Instructions: must administer with a meal/food isosorbide mononitrate 120 mg tablet extended release 24 hr 120 mg PO DAILY ezetimibe 10 mg tablet 10 mg PO DAILY Discharge Orders: Discharge ED (Routine); Ordered 02/08/23 Ordered By: Francisco Saleh Referrals: Torey Cade MD [Primary Care Provider] - Discharge Diet: Usual diet Discharge Activity: Increase activity as tolerated Patient Instructions: Acute Low Back Pain (ED), Opioid Safety, Pain Management Coding Level of Care Code ED Manager Communication for Aylin Tracy
--- NOTE | 2023-02-08 08:34 | XRR_ITS ---
PROCEDURE INFORMATION: Exam: XR Lumbosacral Spine Exam date and time: 02/08/2023 9:24 AM Age: 87 years old Clinical indication: Low back pain TECHNIQUE: Imaging protocol: Radiologic exam of the lumbosacral spine. Views: 2 or 3 views. COMPARISON: CT chest abdpel w/*[id number] 04/26/2020 1:59 PM FINDINGS: Bones/joints: Grade 1 anterolistheses of or L4 on L5. Moderate degenerative disc disease is seen in the visualized thoracolumbar spine. Mild wedging of T10 and T11 of indeterminate age. Soft tissues: No gross soft tissue swelling. XR/XR lumbar spine 2-3V* [id number] IMPRESSION: 1. Mild wedging of T10 and T11 of indeterminate age. 2. Moderate degenerative disc disease is seen in the visualized thoracolumbar spine. 3. Consider MRI to further assess if clinically warranted.
[2023-02-08] MEDS: HYDROcodone-acetaminophen 5-325 mg Tablet 1 TAB PO (08:46)
[2023-02-08 10:50] LABS: Add Urine Culture? Yes; Add Urine Microscopic? YES; Bacteria Urine 4+ /hpf; Bilirubin Urine Neg (Negative); Blood Urine Neg (Negative); Glucose Urine UA Norm (Normal); Ketones Urine Negative (Negative); Leukocyte Esterase Urine Negative (Negative); Nitrate Urine Positive (Negative); Protein Urine Neg (Negative); RBC Urine 0-4 /hpf (0-2); Squamous Epithelial Cell Urine 0-4 /hpf (0-5); Urine Appearance Hazy (CLEAR); Urine Color Yellow (Yellow); Urobilinogen Urine Norm (Negative); pH Urine 6 (5-7)
== END 2023-02-08 11:13 | disposition home or self-care (01) ==
PROVIDERS: Emergency Provider Family Medicine; PCP Family Medicine
DX: S39.012A Strain of muscle, fascia and tendon of lower back, initial encounter (principal); Z79.82 Long term (current) use of aspirin; E78.5 Hyperlipidemia, unspecified; Z85.038 Personal history of other malignant neoplasm of large intestine; E11.9 Type 2 diabetes mellitus without complications; I10 Essential (primary) hypertension; X58.XXXA Exposure to other specified factors, initial encounter
CPT/HCPCS: 72100; 81001; 87077; 87086; 87186; 99284

== ENCOUNTER 2024-06-08 11:02 | Inpatient (IN) | payer MEDICAID, SELFPAY ==
[2024-06-08] VITALS (55 sets, daily range): BP systolic 143–225; BP diastolic 71–143; PULSE 50–101; RESP 13–29; TEMP 36.6–37.3; O2SAT 85–99; BMI 27.7
--- NOTE | 2024-06-08 11:16 | CTR_ITS ---
PROCEDURE INFORMATION: Exam: CTA Head With Contrast, Arteriography Exam date and time: 06/08/2024 11:38 AM Age: 88 years old Clinical indication: Injury or trauma; Fall; Blunt trauma; Head; Additional info: Altered, gaze to right, also fall TECHNIQUE: Imaging protocol: Computed tomographic angiography of the head with contrast. Exam focused on the arteries. 3D rendering (Not supervised by radiologist): MIP and/or 3D reconstructed images were created by the technologist. Radiation optimization: All CT scans at this facility use at least one of these dose optimization techniques: automated exposure control; mA and/or kV adjustment per patient size (includes targeted exams where dose is matched to clinical indication); or iterative reconstruction. Contrast material: OMNI 350; Contrast volume: 100 ml; Contrast route: INTRAVENOUS (IV); COMPARISON: CT head thrombolytic [id number] 06/08/2024 11:29 AM RADIATION DOSE METRICS: Total DLP (mGy-cm): 436.02 FINDINGS: ANTERIOR CIRCULATION: Right internal carotid artery: Calcified and noncalcified plaques with mild stenosis along the intracranial segment. No aneurysm. Right middle cerebral artery: M1 segment is patent. There is poor opacification of the superior terminal branches of M2 (series 7, image 245. Right anterior cerebral artery: No occlusion or significant stenosis. No aneurysm. Left internal carotid artery: Calcified and noncalcified plaques with mild stenosis along the intracranial segment. No aneurysm. Left middle cerebral artery: No occlusion or significant stenosis. No aneurysm. Left anterior cerebral artery: No occlusion or significant stenosis. No aneurysm. POSTERIOR CIRCULATION: Right vertebral artery: No occlusion or significant stenosis. No aneurysm. Left vertebral artery: No occlusion or significant stenosis. No aneurysm. Basilar artery: No occlusion or significant stenosis. No aneurysm. Right posterior cerebral artery: No occlusion or significant stenosis. No aneurysm. Left posterior cerebral artery: No occlusion or significant stenosis. No aneurysm. Brain: There is a hypodense area along the right insular ribbon and in the subcortical right frontal region adjacent to the right frontal horn of unknown acuity. No hemorrhage. Bilateral ill-defined periventricular hypodensities are present, consistent with moderate chronic microvascular ischemic white matter changes. Cerebral ventricles: No ventriculomegaly. Mastoid air cells: Visualized mastoid air cells are well aerated. Paranasal sinuses: Visualized sinuses are unremarkable. No fluid levels. Bones/joints: Unremarkable. No acute fracture. Soft tissues: Unremarkable. PROCEDURE INFORMATION: Exam: CTA Neck With Contrast Exam date and time: 06/08/2024 11:38 AM Age: 88 years old Clinical indication: Injury or trauma; Fall; Blunt trauma; Head; Additional info: Altered, gaze to right, also fall TECHNIQUE: Imaging protocol: Computed tomographic angiography of the neck with contrast. Exam focused on the cervical segments of the vasculature. 3D rendering (Not supervised by radiologist): MIP and/or 3D reconstructed images were created by the technologist. Radiation optimization: All CT scans at this facility use at least one of these dose optimization techniques: automated exposure control; mA and/or kV adjustment per patient size (includes targeted exams where dose is matched to clinical indication); or iterative reconstruction. Contrast material: OMNI 350; Contrast volume: 100 ml; Contrast route: INTRAVENOUS (IV); COMPARISON: CT cervical spin wo con* [id number] 06/08/2024 11:29 AM RADIATION DOSE METRICS: Total DLP (mGy-cm): 436.02 FINDINGS: Right common carotid artery: Calcified plaques at the right carotid bulb with moderate stenosis 50-55%. No dissection or occlusion. Right internal carotid artery: No stenosis of the extracranial segment. No dissection or occlusion. Right external carotid artery: No occlusion or stenosis of the origin. Left common carotid artery: No stenosis. No dissection or occlusion. Left internal carotid artery: No stenosis of the extracranial segment. No dissection or occlusion. Left external carotid artery: No occlusion or stenosis of the origin. Right vertebral artery: No stenosis. No dissection or occlusion. Left vertebral artery: No stenosis. No dissection or occlusion. Soft tissues: Normal. No significant soft tissue swelling. Bones/joints: No acute fracture. CT/CT angio headneck* [id number] IMPRESSION: 1. Poor opacification of the superior M2 branch of the right MCA, concerning for reduced flow or evolving distal branch occlusion. Follow-up imaging with MRI brain is recommended. 2. Hypodensity involving the right insular ribbon and adjacent subcortical right frontal lobe, concerning for evolving ischemia in the right middle cerebral artery (MCA) territory. IMPRESSION: 1. No large vessel occlusion. 2. 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 REFERENCES: NASCET CRITERIA. The degree of stenosis in the cervical segment of the internal carotid artery is based on NASCET criteria. Normal is no stenosis. Mild is less than 50% stenosis. Moderate is 50-69% stenosis. Severe is 70% to 99% stenosis. Total occlusion is no detectable patent lumen.
--- NOTE | 2024-06-08 11:16 | ECG_ITS ---
[facility] Test Date: 2024-06-08 Pat Name: Mercedez Ramos Department: Room: Gender: Female Plant Technician: : [id number] Requested By: Satish York Order Number: [id number] Cornelius MD: Jean Pierce M.D. Measurements Intervals Maple Rate: 80 P: 0 IN: 0 QRS: -20 QRSD: 114 T: 269 QT: 402 QTc: 466 Interpretive Statements ATRIAL FIBRILLATION MODERATE INTRAVENTRICULAR CONDUCTION DELAY [110+ ms QRS DURATION] ST DEVIATION AND MODERATE T-WAVE ABNORMALITY, CONSIDER LATERAL ISCHEMIA [-0.1+ mV T-WAVE IN I/aVL/V5/V6] ST DEVIATION AND MODERATE T-WAVE ABNORMALITY, CONSIDER INFERIOR ISCHEMIA [-0.1+ mV T-WAVE IN II/aVF] Compared to ECG 01/23/2022 15:21:30 Intraventricular conduction delay now present T-wave abnormality now present Possible ischemia now present Myocardial infarct finding no longer present Electronically Signed On 06-09-2024 18:52:10 CDT by Jean Pierce M.D. [email or web address]
--- NOTE | 2024-06-08 11:16 | CTR_ITS ---
PROCEDURE INFORMATION: Exam: CT Head Without Contrast Exam date and time: 06/08/2024 11:29 AM Age: 88 years old Clinical indication: Stroke-like symptoms; Altered mental status/memory loss and syncope/collapse; Additional info: Symptoms of acute stroke TECHNIQUE: Imaging protocol: Computed tomography of the head without contrast. Radiation optimization: All CT scans at this facility use at least one of these dose optimization techniques: automated exposure control; mA and/or kV adjustment per patient size (includes targeted exams where dose is matched to clinical indication); or iterative reconstruction. Other technique: STROKE PROTOCOL was implemented. COMPARISON: CT head wo con* [id number] 01/07/2021 9:28 PM RADIATION DOSE METRICS: Total DLP (mGy-cm): 1188.1 FINDINGS: Brain: There is a hypodense area along the right insular ribbon and in the subcortical right frontal region adjacent to the right frontal horn of unknown acuity. No hemorrhage. Bilateral ill-defined periventricular hypodensities are present, consistent with moderate chronic microvascular ischemic white matter changes. Cerebral ventricles: No ventriculomegaly. Paranasal sinuses: Visualized sinuses are unremarkable. No fluid levels. Mastoid air cells: Visualized mastoid air cells are well aerated. Bones: Unremarkable. No acute fracture. Soft tissues: Unremarkable. CT/CT head thrombolytic [id number] IMPRESSION: There is a hypodense area along the right insular ribbon and in the subcortical right frontal region adjacent to the right frontal horn of unknown acuity, new when compared to prior CT of the head dated 01/07/2021. Consider MRI of the brain for further evaluation. ASSESSMENT: ASPECTS ([place] Stroke Program Early CT Score) is 9.
--- NOTE | 2024-06-08 11:16 | XRR_ITS ---
PROCEDURE INFORMATION: Exam: XR Chest Exam date and time: 06/08/2024 12:02 PM Age: 88 years old Clinical indication: Injury or trauma; Bleeding/hemorrhage; Injury details: Hypoxia; HTN; AMS post fall TECHNIQUE: Imaging protocol: Radiologic exam of the chest. Views: 1 view. COMPARISON: CR XR chest 1V portable [id number] 01/23/2022 2:34 PM FINDINGS: Lungs: Unremarkable. No consolidation. Pleural spaces: Unremarkable. No pleural effusion. No pneumothorax. Heart/Mediastinum: Enlarged cardiac silhouette. Bones/joints: Unremarkable. XR/XR chest 1V portable [id number] IMPRESSION: No acute findings.
--- NOTE | 2024-06-08 11:17 | W.ED.FALL ---
HPI - Fall General: Chief Complaint: Altered Mental Status Stated Complaint: nose lac s/p fall Time Seen by Provider: 06/08/24 11:12 History of Present Illness: 88-year-old female brought in by EMS. She was last known normal 2 days ago. Her granddaughter is here to help with history as the patient speaks Beninese. Patient was noted to develop altered mental status yesterday. She also was found to have fallen in the middle of the night. She has trauma to her face and forehead. She appears to have a preference of her gaze to the right and I have not seen her look all the way to the left. She is moving her right side really well and her left side less so. We do not have any other history other than what was presented here. The granddaughter does not know what medication she takes but I can see on her medication list that she takes rivaroxaban according to our records. Granddaughter states that she would never want to be on a ventilator. However, she does not know her other goals of care. Related Data Home Medications ?Medication ?Instructions ?Recorded ?Confirmed aspirin 325 mg tablet 325 mg PO DAILY 06/02/20 06/08/24 calcium carbonate (Calcium 600) 600 mg PO DAILY 06/02/20 06/08/24 docusate sodium 100 mg capsule 100 mg PO DAILY 06/02/20 06/08/24 (Colace) fesoterodine 4 mg tablet,extended 4 mg PO DAILY 06/02/20 06/08/24 release 24 hr (Toviaz) levothyroxine 112 mcg capsule 112 mcg PO DAILY 06/02/20 06/08/24 pantoprazole 40 mg tablet,delayed 40 mg PO BEDTIME 06/02/20 06/08/24 release rivaroxaban 20 mg tablet (Xarelto) 20 mg PO QPM 06/02/20 06/08/24 rosuvastatin 40 mg tablet (Crestor) 40 mg PO BEDTIME 06/02/20 06/08/24 valsartan 320 1 tab PO DAILY 06/02/20 06/08/24 mg-hydrochlorothiazide 25 mg tablet ezetimibe 10 mg tablet 10 mg PO DAILY 01/23/22 06/08/24 isosorbide mononitrate 120 mg 120 mg PO DAILY 01/23/22 06/08/24 tablet,extended release 24 hr albuterol sulfate 90 mcg/actuation 2 puff inhalation Q4H PRN Wheezing 06/08/24 06/08/24 aerosol inhaler (Ventolin HFA) levothyroxine 50 mcg tablet 50 mcg PO DAILY 06/08/24 06/08/24 Previous Rx's ?Medication ?Instructions ?Recorded carvedilol 6.25 mg tablet (Coreg) 6.25 mg PO BID #90 tabs 08/03/21 Allergies Allergy/AdvReac Type Severity Reaction Status Date / Time No Known Allergies Allergy Verified 02/08/23 10:04 Review of Systems General: Reports: Other (Language barrier as well as altered mental status) [facility] ED PFS: Medical History (Updated 06/08/24 @ 14:54 by Clifton York MD) Syncope Hyperlipidemia Adenocarcinoma of sigmoid colon Hypothyroidism Type 2 diabetes mellitus Atrial fibrillation Uncontrolled hypertension Surgical History History of umbilical hernia repair History of exploratory laparotomy History of ventral hernia repair Social History Smoking and tobacco/nicotine status: never used tobacco/nicotine Physical Exam Narrative: EXAM NARRATIVE: Patient is alert. It is difficult to assess her mental status because she does not speak Azeri. Plant Engineering Supervisor states that she is confused. She has a gaze preference to the right. She does come to midline but does not seem to ever look to the left. Her pupils are equal. No meningeal signs. She has trauma to the forehead and face with epistaxis. She arrived without C-spine precautions. She is moving all of her extremities but has a strong preference to the right side: We can visualize her moving her right arm and leg more than her left arm and leg. She does respond to stimulation by withdrawing in the left arm and leg. No obvious facial droop. Blood pressure is significantly elevated. There is an abrasion on her left coronel. No other signs of trauma to the arms or legs. The pelvis is stable. Const: COMMON NORMALS: alert and well nourished EXAM LIMITATIONS: no altered mental status HENMT: COMMON NORMALS: normocephalic and external ears normal HEAD & SCALP: normocephalic EXTERNAL EAR: Yes external ears normal MOUTH: no muffled voice Eye: COMMON NORMALS: conjunctivae normal and no scleral icterus CONJUNCTIVA: Yes conjunctivae normal Neck/C-Spine: GENERAL: Yes normal visual inspection and Yes trachea midline Resp: COMMON NORMALS: normal respiratory effort and No use of accessory muscles GI: COMMON NORMALS: Soft to palpation and non-tender PALPATION: Yes Soft to palpation and No Guarding due to palpation present (GI) Neuro: COMMON NORMALS: moves all extremities SENSORIUM/ORIENTATION: Yes alert Skin: COMMON NORMALS: no jaundice Procedures Epistaxis Control Time Out Performed: Yes (spoke with family for permission) Nostril: left Direct Inspection: yes and anterior source identified Clots Removed by: manually Cautery Used: silver nitrate Device Inserted: hemostatic dressing Patient Tolerated Procedure: well and no complications Laceration Laceration 1: Site: face (nose, left side nare) Size (cm): 1 Description: flap Depth: [id number] Pre-repair: wound explored (trickling BRB) Skin layer closed with: nylon Size (cm): 5-0 Number of sutures: 3 Technique: simple, interrupted Course Vital Signs: Vital signs: Vital Signs Temperature 99.1 F 06/08/24 11:15 Pulse Rate 65 06/08/24 13:55 Respiratory Rate 21 H 06/08/24 14:00 Blood Pressure 206/100 06/08/24 14:00 Pulse Oximetry 89 L 06/08/24 14:00 Oxygen Delivery Me thod Nasal Cannula 06/08/24 12:08 Oxygen Flow Rate 3 06/08/24 12:08 MDM - Fall Medical Decision Making Patient presents with altered mental status and what we suspect to be neurologic deficits. She is confused and agitated. She is reportedly on Xarelto. Family also states they gave her 2 aspirin this morning at 4 AM. The patient would not cooperate as she does not understand what is going on. She was given 100 mg of IV ketamine. The family states that she would not want to be on a ventilator. Patient was taken for a CT scan of her head. There was no intracranial hemorrhage but the radiologist called me at 11:55 AM and said it looks like there is a hypodensity along the right insular ribbon. There is no recent comparison but he suspects it is subacute or possibly chronic in its radiographic appearance. Patient has already been given aspirin today. We do not know of the last dose of her Xarelto, but family thinks it was probably on Sunday. Updates: CT scan of the head shows a hypodense area along the right insular ribbon and in the subcortical right frontal region. CTA of the head and neck was performed. There is some stenosis around the right carotid bulb but it is not severe. There does appear to be poor flow through the superior M2 branch of the right MCA. This correlates really well with where the hypodense region is on her head CT. This is suggestive of a subacute stroke. This would fit with the clinical history of subacute worsening over the last 36 hours. I was able to speak with the patient's daughter through coding analyst. Daughter states at the latest, she was symptomatic yesterday at noon. Therefore it has been 24+ hours since her last known well time. I went ahead and spoke with Dr. Arizmendi at 12:55 PM. He is a stroke neurologist. Since the lesion is already visible on CT scan; it has been greater than 24 hours; and it is in an M2 segment he does not recommend any attempt at thrombectomy. Patient will be admitted to the hospital for stroke care. She has poor range of motion in her legs and it seems to be tender somewhere in the left knee region. Since she did have a fall we had an x-ray. Fractures were visualized in her pelvis, left tib-fib, chest x-ray. Blood pressure did exceed 220/120, or parameters for permissive hypertension. 1 dose of labetalol was given. The patient's creatinine is mildly elevated at 1.2 with a BUN of 27. She is currently n.p.o. I have put her on 100 cc an hour of NS to keep her hydrated. The patient had a laceration in the left nare. It was about 1 cm and was a flap. We could not get it to stop bleeding. I ended up placing 3 sutures through it and then using some silver nitrate. We will also soak a pledget with TXA and pack the anterior nare to help firm up any clot. CMP did show a metabolic acidosis with a high anion gap and her glucose is 151. This is unlikely to be diabetic ketoacidosis. Will need to be monitored closely. UA without any signs of infection. Patient admitted to Dr. Bishop. Medical Records I reviewed the patient's medical records. Lab Data 06/08/24 11:28 06/08/24 11:28 Radiology Impressions Chest X-Ray 06/08/24 11:16 IMPRESSION: No acute findings. Head CT 06/08/24 11:16 IMPRESSION: There is a hypodense area along the right insular ribbon and in the subcortical right frontal region adjacent to the right frontal horn of unknown acuity, new when compared to prior CT of the head dated 01/07/2021. Consider MRI of the brain for further evaluation. ASSESSMENT: ASPECTS ([place] Stroke Program Early CT Score) is 9. ADDENDUM: 06/08/24 1157 The findings were verbally communicated via telephone conference with CLIFTON Nobles at 11:55 AM CDT on 06/08/2024. The findings were acknowledged and understood. Head/Neck CTA 06/08/24 11:16 IMPRESSION: 1. Poor opacification of the superior M2 branch of the right MCA, concerning for reduced flow or evolving distal branch occlusion. Follow-up imaging with MRI brain is recommended. 2. Hypodensity involving the right insular ribbon and adjacent subcortical right frontal lobe, concerning for evolving ischemia in the right middle cerebral artery (MCA) territory. IMPRESSION: 1. No large vessel occlusion. 2. 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 REFERENCES: NASCET CRITERIA. The degree of stenosis in the cervical segment of the internal carotid artery is based on NASCET criteria. Normal is no stenosis. Mild is less than 50% stenosis. Moderate is 50-69% stenosis. Severe is 70% to 99% stenosis. Total occlusion is no detectable patent lumen. ADDENDUM: 06/08/24 1241 THIS REPORT CONTAINS FINDINGS THAT MAY BE CRITICAL TO PATIENT CARE. The findings were verbally communicated via telephone conference with CLIFTON Nobles at 12:40 PM CDT on 06/08/2024. The findings were acknowledged and understood. Cervical Spine CT 06/08/24 11:26 IMPRESSION: No acute findings. Pelvis X-Ray 06/08/24 11:26 IMPRESSION: No acute fracture Face CT 06/08/24 11:32 IMPRESSION: No acute fracture or dislocation. Tibia/Fibula X-Ray 06/08/24 13:10 IMPRESSION: 1. 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 2. Vascular calcifications. 3. No acute fracture. Laboratory Results WBC 8.08 10^3/uL (3.29-11.43) 06/08/24 11: RBC 4.01 10^6/uL (3.85-5.65) 06/08/24 11:28 Hgb 13.20 g/dL (11.27-16.99) 06/08/24 11:28 Hct 38.9 % (36-47) 06/08/24 11:28 MCV 97.0 fl (85-98) 06/08/24 11:28 MCH 32.9 pg (27-33) 06/08/24 11:28 MCHC 33.9 g/dL (30-55) 06/08/24 11:28 RDW 12.7 % (12.1-15.1) 06/08/24 11:28 Plt Count 170 10^3/cmm (157-399) 06/08/24 11:28 MPV 9.7 fL (7.4-10.4) 06/08/24 11:28 Neut % (Auto) 88.8 % 06/08/24 11:28 Lymph % (Auto) 7.9 % 06/08/24 11:28 Cole % (Auto) 3.1 % 06/08/24 11:28 Eos % (Auto) 0.0 % 06/08/24 11:28 Baso % (Auto) 0.1 % 06/08/24 11: Neut # (Auto) 7.17 10^3/uL (1.8-7.7) 06/08/24 11:28 Lymph # (Auto) 0.6 10^3/uL (0.8-4.8) L 06/08/24 11:28 Cole # (Auto) 0.3 10^3/uL (0.2-0.9) 06/08/24 11:28 Eos # (Auto) 0.0 10^3/uL (0.0-0.8) 06/08/24 11:28 Baso # (Auto) 0.0 10^3/uL (0.0-0.1) 06/08/24 11:28 Nucleated RBC % (auto) 0 % 06/08/24 11:28 Nucleated RBCs # 0.0 /100WBC 06/08/24 11:28 PT 15.00 SECONDS (12.1-14.9) H 06/08/24 11:28 INR 1.10 (0.8-1.2) 06/08/24 11:28 APTT 29.2 SECONDS (23.9-36.7) 06/08/24 11:28 Sodium 135 mmol/L (136-145) L 06/08/24 11:28 Potassium 4.1 mmol/L (3.5-5.1) 06/08/24 11:28 Chloride 100 mmol/L (98-107) 06/08/24 11:28 Carbon Dioxide 18 mmol/L (22-29) L 06/08/24 11:28 Anion Gap 21.1 (5-19) H 06/08/24 11:28 BUN 27 mg/dL (8-23) H 06/08/24 11:28 Creatinine 1.2 mg/dL (0.5-0.9) H 06/08/24 11:28 GFR Calculation Not Reportable 06/08/24 11:28 Glucose 151 mg/dL (65-115) H 06/08/24 11:28 Calculated Osmolality 288 mOsm/kg (285-295) 06/08/24 11:28 Lactic Acid 1.7 mmol/L (0.5-2.2) 06/08/24 11:28 Calcium 9.2 mg/dL (8.5-10.5) 06/08/24 11:28 Total Bilirubin 1.6 mg/dL (0.15-1.2) H 06/08/24 11:28 AST 25 U/L (0-32) 06/08/24 11:28 ALT 9 U/L (0-33) 06/08/24 11:28 Alkaline Phosphatase 99 U/L (35-105) 06/08/24 11:28 Total Protein 7.4 g/dL (6.6-8.7) 06/08/24 11:28 Albumin 3.9 g/dL (3.5-5.2) 06/08/24 11:28 Globulin 3.5 g/dL (1.3-4.6) 06/08/24 11:28 Urine Color Yellow (Yellow) 06/08/24 12:32 Urine Appearance Clear (CLEAR) 06/08/24 12:32 Urine pH 6.0 (5-7) 06/08/24 12:32 Ur Specific [place] 1.034 (1.005-1.030) H 06/08/24 12:32 Urine Protein 1+ (Negative) A 06/08/24 12:32 Urine Glucose (UA) Negative (Normal) 06/08/24 12:32 Urine Ketones Trace (Negative) 06/08/24 12:32 Urine Blood 1+ (Negative) A 06/08/24 12:32 Urine Nitrate Negative (Negative) 06/08/24 12:32 Urine Bilirubin Negative (Negative) 06/08/24 12:32 Urine Urobilinogen 1.0 mg/dL (Negative) 06/08/24 12:32 Ur Leukocyte Esterase Negative (Negative) 06/08/24 12:32 Urine RBC 3-5 /hpf (0-2) 06/08/24 12:32 Urine WBC 0-5 /hpf (0-5) 06/08/24 12:32 Ur Squamous Epith Cells 0-5 /hpf (0-5) 06/08/24 12:32 Amorphous Sediment Not Reportable 06/08/24 12:32 Urine Bacteria None seen /hpf (NONE) 06/08/24 12:32 Hyaline Casts 0.40 /lpf 06/08/24 12:32 All radiology interpretation(s) finalized by discharge ED provider radiology interpretation(s): All imaging other than left knee has been reviewed. EKG Data EKG 1: Interpretation: Obtained at 12:49 PM. EP interpretation. Irregular, atrial fibrillation, ventricular rate 80, QRS is 114 ms, T wave inversions are noted through the lateral leads with ST T wave changes in lead beat for as well. There are also T wave inversions in 2 3 and aVF. Poor R wave progression through the precordium. Abnormal EKG. Critical Care Time Critical Care Time: Critical Care Time: Yes Total Critical Care Time: 120 Attestation: This case had a high probability of a clinically significant, sudden, or life threatening deterioration of this patient's condition which required my full and direct attention, intervention and personal management. Stroke with neuro deficits. Discharge Plan Discharge Patient Disposition: Admitted As Inpatient Admit Provider: Roman Bishop Clinical Impression: Acute stroke due to ischemia, Uncontrolled hypertension, Atrial fibrillation, Laceration of nose, Contusion of face, Closed head injury, Metabolic acidosis, Abnormal ECG Condition: Stable Coding Level of Care Code ED Cotton Picking Machine Operator for Aylin Tracy
--- NOTE | 2024-06-08 11:22 | PC.PHAR ---
Addendum entered by Lilli Mallory 06/08/24 11:24: Unknown when last taken. Original Note: Pt unable to verify home medications. Med list is current and verified from pharmacy list with last fill date and day supply.
[2024-06-08] MEDS: ketamine 100 mg/mL Inj 5 mL IVP (11:25)
--- NOTE | 2024-06-08 11:26 | CTR_ITS ---
PROCEDURE INFORMATION: Exam: CT Cervical Spine Without Contrast Exam date and time: 06/08/2024 11:29 AM Age: 88 years old Clinical indication: Injury or trauma; Fall; Blunt trauma TECHNIQUE: Imaging protocol: Computed tomography of the cervical spine without contrast. Radiation optimization: All CT scans at this facility use at least one of these dose optimization techniques: automated exposure control; mA and/or kV adjustment per patient size (includes targeted exams where dose is matched to clinical indication); or iterative reconstruction. COMPARISON: CT cervical spin wo con* [id number] 01/07/2021 9:32 PM RADIATION DOSE METRICS: Total DLP (mGy-cm): 223.1 FINDINGS: Bones: No acute fracture. Normal alignment. No significant disc bulge or herniation. No severe spinal canal stenosis. Chronic marked degenerative disc and facet changes throughout the cervical spine with multilevel foramina compromise. Lungs: Lung apices are normal. Soft tissues: Unremarkable. CT/CT cervical spin wo con* [id number] IMPRESSION: No acute findings.
--- NOTE | 2024-06-08 11:26 | XRR_ITS ---
PROCEDURE INFORMATION: Exam: XR Pelvis Exam date and time: 06/08/2024 12:02 PM Age: 88 years old Clinical indication: Pelvic pain; Fall; Trauma protocol; AMS TECHNIQUE: Imaging protocol: Radiologic exam of the pelvis. Views: 1 or 2 view. COMPARISON: CT chest abdpel w/*[id number] 04/26/2020 1:59 PM FINDINGS: Bones/joints: No acute fracture or subluxation. . Soft tissues: Unremarkable. XR/XR pelvis 1-2V* [id number] IMPRESSION: No acute fracture
--- NOTE | 2024-06-08 11:32 | CTR_ITS ---
PROCEDURE INFORMATION: Exam: CT Maxillofacial Without Contrast Exam date and time: 06/08/2024 11:33 AM Age: 88 years old Clinical indication: Injury or trauma; Fall; Blunt trauma (contusions or hematomas); Nose TECHNIQUE: Imaging protocol: Computed tomography of the face without contrast. Radiation optimization: All CT scans at this facility use at least one of these dose optimization techniques: automated exposure control; mA and/or kV adjustment per patient size (includes targeted exams where dose is matched to clinical indication); or iterative reconstruction. COMPARISON: CT head thrombolytic [id number] 06/08/2024 11:29 AM RADIATION DOSE METRICS: Total DLP (mGy-cm): 583.88 FINDINGS: Paranasal sinuses: No air-fluid levels. Mucosal thickening along the right maxillary sinus, all other visualized paranasal sinuses clear. Orbital cavities: Orbits are normal. Globes are unremarkable. Bones: No acute fracture. Soft tissues: Soft tissue injury along the base of the nose. CT/CT facial bones wo con* [id number] IMPRESSION: No acute fracture or dislocation.
[2024-06-08 11:35] LABS: Basophils % 0.1 %; Hematocrit 38.9 % (36-47); Lymphocytes # 0.6 10^3/uL (0.8-4.8); Lymphocytes % 7.9 %; Mean Corpuscular HGB Conc 33.9 g/dL (30-55); Mean Corpuscular Hemoglobin 32.9 pg (27-33); Mean Platelet Volume 9.7 fL (7.4-10.4); Monocytes # 0.3 10^3/uL (0.2-0.9); Monocytes % 3.1 %; Neutrophils # 7.17 10^3/uL (1.8-7.7); Neutrophils % 88.8 %; Nucleated Red Blood Cells % 0 %; Platelet Count 170 10^3/cmm (157-399); Red Blood Count 4.01 10^6/uL (3.85-5.65); Red Cell Distribution Width 12.7 % (12.1-15.1); White Blood Count 8.08 10^3/uL (3.29-11.43)
[2024-06-08 11:52] LABS: Partial Thromboplastin Time 29.2 SECONDS (23.9-36.7)
[2024-06-08 11:54] LABS: Lactic Sepsis W/Reflex 1.7 mmol/L (0.5-2.2)
[2024-06-08 11:55] LABS: Alanine Aminotransferase 9 U/L (0-33); Albumin Level 3.9 g/dL (3.5-5.2); Alkaline Phosphatase 99 U/L (35-105); Aspartate Amino Transferase 25 U/L (0-32); Blood Urea Nitrogen 27 mg/dL (8-23); Calcium 9.2 mg/dL (8.5-10.5); Carbon Dioxide 18 mmol/L (22-29); Chloride 100 mmol/L (98-107); Creatinine Clr Calc Pharmacy 33.5705; Globulin 3.5 g/dL (1.3-4.6); Glucose 151 mg/dL (65-115); Osmolality Calculated 288 mOsm/kg (285-295); Sodium 135 mmol/L (136-145); Total Bilirubin 1.6 mg/dL (0.15-1.2); Total Protein 7.4 g/dL (6.6-8.7)
[2024-06-08 11:56] LABS: Anion Gap 21.1 (5-19); Potassium 4.1 mmol/L (3.5-5.1)
[2024-06-08 12:46] LABS: Bilirubin Urine Negative (Negative); Blood Urine 1+ (Negative); Glucose Urine UA Negative (Normal); Ketones Urine Trace (Negative); Leukocyte Esterase Urine Negative (Negative); Nitrate Urine Negative (Negative); Protein Urine 1+ (Negative); Urine Appearance Clear (CLEAR); Urine Color Yellow (Yellow)
[2024-06-08 12:49] LABS: Add Urine Microscopic? YES; Bacteria Urine None Seen /hpf; Specific Gravity, Urine 1.034 (1.005-1.030); Squamous Epithelial Cell Urine 0-5 /hpf (0-5); WBC Urine 0-5 /hpf (0-5)
[2024-06-08] MEDS: labetalol 5 mg/mL SDV 20mL 20 MG IVP (12:58)
--- NOTE | 2024-06-08 13:10 | XRR_ITS ---
PROCEDURE INFORMATION: Exam: XR Left Tibia and Fibula Exam date and time: 06/08/2024 1:23 PM Age: 88 years old Clinical indication: Left; Lt lower leg pain post fall; Limited rom TECHNIQUE: Imaging protocol: Radiologic exam of the left tibia and fibula. Views: 2 views. COMPARISON: CR XR tibia fibula LT 2V [id number] 04/16/2019 1:33 PM FINDINGS: Bones/joints: The medial femoral condyle, and medial femoral tibial plateau. Marked joint space narrowing predominantly in the medial compartment of the knee. Subchondral sclerotic changes along the medial compartment. Soft tissues: Normal. XR/XR tibia fibula LT 2V [id number] IMPRESSION: 1. 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 2. Vascular calcifications. 3. No acute fracture.
[2024-06-08] MEDS: sodium chloride 0.9% 1,000 ML 100 ML IV (14:02)
[2024-06-08] MEDS: silver nitrate applicator 1 EACH TOPICAL (14:23)
--- NOTE | 2024-06-08 14:31 | PM.HP ---
Providers/Chief Complaint Admitting Physician: Roman Bishop MD Primary Care Provider: Torey Cade MD Chief Complaint: nose lac s/p fall History of Present Illness History taken through the granddaughter who translates to Cape Verde[place]. Patient's daughter/DPOA also present at bedside who is helping in history taking through Marshallese interpretation. Mercedez Ramos is a 88 year old female with past medical history of hypertension, A-fib with Xarelto for anticoagulation, hypothyroidism presents to the ER today because of nosebleed which started after she fell yesterday. As per the granddaughter who is at bedside when the family returned from [place] yesterday they found patient to be confused. She was able to move her arms and legs. Today her confusion got worse and bleeding was not being controlled so they brought her to the ER. In the ER she was found to have right sided preference of gaze along with mild weakness on the left side of her body. Patient took her medications last on Sunday. Today is Sunday. Multiple imaging studies were done in the ER including CT head, CTA head and neck, CT cervical spine, facial CT, pelvic x-ray, knee x-ray Which showed hypodense area around the right insular ribbon and and subcortical right frontal region adjacent to right frontal horn, CTA head and neck shows M2 branch of right MCA concerning for reduced flow or evolving distal branch occlusion with concern for right MCA territory stroke. Patient care was discussed in detail with neurologist at [facility] who recommended patient to have medical management. Review of Systems General: Reports: ROS unobtainable due to mental status Medications/Allergies Home Medications ?Medication ?Instructions ?Recorded ?Confirmed ?Last Taken ?Type aspirin 325 mg tablet 325 mg PO DAILY 06/02/20 06/08/24 02/08/23 History calcium carbonate (Calcium 600) 600 mg PO DAILY 06/02/20 06/08/24 02/08/23 History docusate sodium 100 mg capsule 100 mg PO DAILY 06/02/20 06/08/24 02/08/23 History (Colace) fesoterodine 4 mg tablet,extended 4 mg PO DAILY 06/02/20 06/08/24 02/08/23 History release 24 hr (Toviaz) levothyroxine 112 mcg capsule 112 mcg PO DAILY 06/02/20 06/08/24 02/08/23 History pantoprazole 40 mg tablet,delayed 40 mg PO BEDTIME 06/02/20 06/08/24 02/07/23 History release rivaroxaban 20 mg tablet (Xarelto) 20 mg PO QPM 06/02/20 06/08/24 02/08/23 History rosuvastatin 40 mg tablet (Crestor) 40 mg PO BEDTIME 06/02/20 06/08/24 02/07/23 History valsartan 320 1 tab PO DAILY 06/02/20 06/08/24 02/08/23 History mg-hydrochlorothiazide 25 mg tablet carvedilol 6.25 mg tablet (Coreg) 6.25 mg PO BID #90 tabs 08/03/21 06/08/24 02/08/23 Rx ezetimibe 10 mg tablet 10 mg PO DAILY 01/23/22 06/08/24 02/08/23 History isosorbide mononitrate 120 mg 120 mg PO DAILY 01/23/22 06/08/24 02/08/23 History tablet,extended release 24 hr albuterol sulfate 90 mcg/actuation 2 puff inhalation Q4H PRN Wheezing 06/08/24 06/08/24 Unknown History aerosol inhaler (Ventolin HFA) levothyroxine 50 mcg tablet 50 mcg PO DAILY 06/08/24 06/08/24 Unknown History Allergies Allergy/AdvReac Type Severity Reaction Status Date / Time No Known Allergies Allergy Verified 02/08/23 10:04 PFSH Acute PFSH: Medical History (Updated 06/08/24 @ 14:54 by Satish York MD) Syncope Hyperlipidemia Adenocarcinoma of sigmoid colon Hypothyroidism Type 2 diabetes mellitus Atrial fibrillation Uncontrolled hypertension Surgical History History of umbilical hernia repair History of exploratory laparotomy History of ventral hernia repair Social History Smoking and tobacco/nicotine status: never used tobacco/nicotine Vitals/I&O/Wt Last Vital Signs Temp 99.1 F 06/08/24 11:15 Pulse 65 06/08/24 14:29 Resp 19 H 06/08/24 14:29 BP 206/112 06/08/24 14:29 Pulse Ox 94 06/08/24 14:29 O2 Del Method Nasal Cannula 06/08/24 14:29 O2 Flow Rate 5 06/08/24 14:29 Weight last 48 hrs Weight 79.379 kg Physical Exam Narrative: General: Mild distress because of epistaxis, difficult to gauge orientation. Patient seems to be oriented to self, being in the hospital. Multiple abrasion on body, epistaxis from the left nasal cavity, skin cut present at left nare profusely bleeding multiple facial contusions without any bleeding HEENT: PERRLA, pupils bilaterally equal and reactive gaze preference Chest: Normal vesicular breath sounds, no added sounds, equal good air entry bilaterally CVS: S1-S2 irregularly irregular, no murmurs, no tachycardia, no gallops, no rubs Abdomen: Soft, nontender, no organomegaly, bowel sounds present Neuro: Right upper limb and lower limb 4/5, left upper limb and lower limb 3/5 Urinary Catheter Management: Evans: Cath Placed During This Visit: yes Urinary Catheter Date of Insertion: 06/08/24 Data 06/08/24 11:28 06/08/24 11:28 A&P Assessment and plan (1) Acute right MCA stroke: Seen on CT head and CTA head and neck. Medical management as per neurologist at [facility]. Patient not a candidate for tenecteplase given delayed presentation along with home use of Xarelto. Permissible hypertension. Treat for blood pressure of more than 220/120 mmHg for next 24 hours. IV hydralazine 10 mg every 4 hours as needed for a systolic of more than 220. Start on NS at 100 cc/h. Aspirin 81 mg daily, statin. Hold off on home dose of Xarelto. Start on full dose Lovenox 1 mg/kg body weight every 12 hourly.Took Xarelto last on 06/06. Check A1c, lipid panel, echocardiogram. PT/OT/speech evaluation. Start on diet accordingly. (2) Fall: Most likely in setting of stroke. Multiple imaging including CT face, CT cervical spine, pelvic x-ray, knee x-ray appreciated. No acute abnormality. Does have left-sided epistaxis. Will plan for Rhino Rocket and gluing of skin of left nare cut (3) Confusion: Most likely encephalopathy in setting of acute stroke. Chest x-ray negative for acute abnormality. (4) Uncontrolled hypertension: Permissible hypertension for now. Patient takes multiple antihypertensive including Coreg, Imdur, combination of valsartan and hydrochlorothiazide at home. Will restart oral antihypertensive as patient is able to take orally after speech evaluation with goal blood pressure of less than 140/90 mmHg 24 hours later. (5) Atrial fibrillation: Monitor heart rate. Currently uncontrolled. Telemetry Switch to full dose Lovenox. Holding off on Xarelto for now. (6) TOM (acute kidney injury): Baseline creatinine normal. Currently 1.2. Associated with mild metabolic acidosis. Could be in setting of dehydration. NS at 100 cc/h for now. Monitor BMP daily. Monitor urine output. (7) Left-sided epistaxis: Most likely due to fall in setting of home use of Xarelto Plan Hypoxia: Oxygen supplementation keeping saturation over 90%. Currently requiring 5l blood could be in setting of epistaxis. Continue to monitor. Pulmicort twice daily, ipratropium, Xopenex every [address] chest. CODE STATUS: Discussed in detail with patient's daughter and granddaughter at bedside. DNR/DNI N.p.o. for now. Start diet as per speech evaluation. Full dose Lovenox will be sufficient for DVT prophylaxis. Hold Giurgius and Xarelto. Protonix for PUD prophylaxis. PDMP PDMP Reviewed: Not Reviewed Attestations Medical Necessity Statement*: Admission for more than 2 midnights for management of right MCA stroke while diet is advanced as per speech evaluation, acute kidney injury, uncontrolled hypertension Coding Level of Care Code Acute Code for [facility] Fwd Diagnoses Acute right MCA stroke I63.511 Fall W19.XXXA Confusion R41.0 Uncontrolled hypertension I10 Atrial fibrillation I48.91 TOM (acute kidney injury) N17.9 Left-sided epistaxis R04.0 NIH stroke score NIHSS Level Of Consciousness - 1a: 2 Level Of Consciousness Questions - 1b: Both Correct Level Of Consciousness Commands - 1c: One Correct Best Gaze - 2: Partial Gaze Palsy Visual Mistry - 3: No Visual Loss Facial Palsy - 4: Minor Paralysis Motor Arm Right - 5: No Drift Motor Arm Left - 5: No Drift
[2024-06-08 14:39] LABS: Procalcitonin 0.06 ng/mL (0-0.5)
--- NOTE | 2024-06-08 15:06 | CTR_ITS ---
PROCEDURE INFORMATION: Exam: CT Chest Without Contrast; Diagnostic Exam date and time: 06/08/2024 5:19 PM Age: 88 years old Clinical indication: Shortness of breath; Additional info: Hypoxia TECHNIQUE: Imaging protocol: Diagnostic computed tomography of the chest without contrast. Radiation optimization: All CT scans at this facility use at least one of these dose optimization techniques: automated exposure control; mA and/or kV adjustment per patient size (includes targeted exams where dose is matched to clinical indication); or iterative reconstruction. COMPARISON: CR (CHEST, ) 06/08/2024 12:02 PM RADIATION DOSE METRICS: Total DLP (mGy-cm): 441.18 FINDINGS: Lungs: Unremarkable. No consolidation. No masses. Pleural spaces: Trace bilateral pleural effusions. Heart: Cardiomegaly. Coronary arteries: Coronary artery calcifications, suggestive of underlying atherosclerotic disease. Lymph nodes: Unremarkable. No enlarged lymph nodes. Vasculature: Dilated main pulmonary artery measuring 37 mm, which may be seen in the setting of pulmonary arterial hypertension; correlate with clinical findings and echocardiography if indicated. Bones/joints: Multilevel anterior flowing osteophytes throughout the thoracic spine, consistent with degenerative changes. Mildly displaced fracture of the lateral right 3rd rib and nondisplaced fracture of the lateral right 2nd rib. Soft tissues: Unremarkable. CT/CT chest wo con [id number] IMPRESSION: 1. Cardiomegaly with a dilated main pulmonary artery measuring 37 mm, which may be associated with pulmonary arterial hypertension. 2. Trace bilateral pleural effusions. 3. Mildly displaced fracture of the lateral right 3rd rib and nondisplaced fracture of the lateral right 2nd rib.
--- NOTE | 2024-06-08 16:06 | USCV_ITS ---
Mercedez Ramos Age: 88 Gender: F : 1935 Exam Date: 06/08/2024 16:44 Ordering Phys: Roman Bishop MD Technologist: Mango Tamez [place] [facility] [place]: stroke BP: 203 / 99 HR: 64 Rhythm: Sinus Technical Quality: Adequate MEASUREMENTS (Male / Female) Normal Values 2D ECHO LV Diastolic Diameter PLAX 4.2 cm 4.2 - 5.9 / 3.9 - 5.3 cm IVS Diastolic Thickness 1.9 cm 0.6 - 1.0 / 0.6 - 0.9 cm IVS Systolic Thickness 2.3 cm LVPW Diastolic Thickness 1.6 cm 0.6 - 1.0 / 0.6 - 0.9 cm LVPW Systolic Thickness 2.1 cm LVOT Diameter 2.0 cm LV Ejection Fraction 2D Teich 70.2 % LV Ejection Fraction MOD 4C 55.7 % LV Ejection Fraction MOD 2C 65.4 % LV Ejection Fraction 2C AL 69.3 % LA Diameter 3.9 cm RA Systolic Volume 4C AL 53.3 ml RA Systolic Volume 4C MOD 54.4 ml LA Sys Volume AL 83.8 cm cubed LA Sys Volume Index AL 46.7 cm cubed/m squared Aorta at Sinotubular Diameter 2.0 cm IVC Diameter 2.8 cm M-MODE LA Ao Ratio MM 1.6 AV Cusp Separation MM 0.7 cm DOPPLER AV Peak Velocity 236.3 cm/s LVOT Peak Velocity 68.0 cm/s AV Area Cont Eq vti 1.2 cm squared AV Area Cont Eq pk 0.9 cm squared MV Peak Velocity 129.0 cm/s MV Area PHT 4.9 cm squared Mitral E to A Ratio 2.9 TV Peak Velocity 482.0 cm/s TR Peak Velocity 506.0 cm/s TR Peak Gradient 102.4 mmHg TR Mean Velocity 427.0 cm/s TR Mean Gradient 75.7 mmHg TR Velocity Time Integral 166.5 cm PV Peak Velocity 96.0 cm/s RV Ejection Time 0.2 s FINDINGS Left Ventricle Normal left ventricular size and systolic function, EF 65%.moderate left ventricular hypertrophy. No regional wall motion abnormalities. Grade I/IV diastolic dysfunction (abnormal relaxation filling pattern), normal to mildly elevated filling pressures. Right Ventricle Normal right ventricular size and systolic function. Right Atrium Moderately increased right atrial size. Left Atrium Severely increased left atrial volume 46 ml/m squared. Mitral Valve Moderate mitral annular calcification. Mild mitral valve regurgitation. Aortic Valve Aortic valve sclerosis. Moderate aortic valve calcification. Mild aortic valve regurgitation. Tricuspid Valve Mild tricuspid valve regurgitation. Severe pulmonary hypertension with an estimated pulmonary artery peak systolic pressure of 76 mmHg Pulmonic Valve Mild pulmonary valve regurgitation. Pericardium No pericardial effusion. Aorta Normal aortic annulus size. IVC Normal IVC with decreased respiratory variation. CONCLUSIONS Normal left ventricular size and systolic function, EF 65%.moderate left ventricular hypertrophy. No regional wall motion abnormalities. Grade I/IV diastolic dysfunction (abnormal relaxation filling pattern), normal to mildly elevated filling pressures. Moderately increased right atrial size. Severely increased left atrial volume 46 ml/m squared. Moderate mitral annular calcification. Mild mitral valve regurgitation. Aortic valve sclerosis. Moderate aortic valve calcification. Mild aortic valve regurgitation. Mild tricuspid valve regurgitation. Severe pulmonary hypertension with an estimated pulmonary artery peak systolic pressure of 76 mmHg. Mild pulmonary valve regurgitation. There is no pericardial effusion. There are no intracardiac masses. Compared to the study from 11/08/2020, there is a wall development of severe pulmonary hypertension Dr Jean Pierce MD [facility] (Electronically Signed) Final Date: 10 June 2024 19:51 S
[2024-06-08 16:50] LABS: Iron 114 ug/dL (37-145); Thyroid Stimulating Hormone 3.47 uIU/mL (0.27-4.20); Vitamin B12 224 pg/mL (232-1245)
[2024-06-08 16:51] LABS: Percent Saturation 72.1 % (20-50); Total Iron Binding Capacity 158 mcg/dl; Unsaturated Iron Binding 44 ug/dL (112-347)
[2024-06-08] MEDS: pantoprazole 40 mg SDV IVP (17:03)
--- NOTE | 2024-06-08 17:45 | PC.NURSE ---
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 blood cleaned from face and attempt clean lips and mouth sutures in left side nasal fold
[2024-06-08 18:12] LABS: Estmated Average Glucose 117; Hemoglobin A1C 5.7 % (4.0-6.0)
[2024-06-08] MEDS: levalbuterol 0.63 mg/3 mL Neb INHALATION (20:14)
[2024-06-08] MEDS: ipratropium 0.5 mg/2.5 mL Neb INHALATION (20:14)
[2024-06-08] MEDS: budesonide 0.5 mg/2 mL Neb INHALATION (20:14)
[2024-06-09] VITALS (73 sets, daily range): BP systolic 132–218; BP diastolic 77–117; PULSE 56–96; RESP 6–27; TEMP 36.5–37; O2SAT 87–99
[2024-06-09] MEDS: sodium chloride 0.9% 1,000 ML 100 ML IV ×2 (02:51→12:56)
[2024-06-09 05:18] LABS: Basophils % 0.3 %; Eosinophils % 0.5 %; Hematocrit 35.1 % (36-47); Lymphocytes % 14.7 %; Mean Corpuscular Hemoglobin 32.8 pg (27-33); Mean Corpuscular Volume 99.2 fl (85-98); Mean Platelet Volume 9.7 fL (7.4-10.4); Monocytes # 0.6 10^3/uL (0.2-0.9); Monocytes % 9.4 %; Neutrophils # 4.93 10^3/uL (1.8-7.7); Neutrophils % 74.8 %; Nucleated Red Blood Cells % 0 %; Platelet Count 155 10^3/cmm (157-399); Red Blood Count 3.54 10^6/uL (3.85-5.65); Red Cell Distribution Width 13.1 % (12.1-15.1); White Blood Count 6.59 10^3/uL (3.29-11.43)
[2024-06-09 05:47] LABS: Procalcitonin 0.08 ng/mL (0-0.5)
[2024-06-09 05:59] LABS: Alanine Aminotransferase 10 U/L (0-33); Albumin Level 3.2 g/dL (3.5-5.2); Alkaline Phosphatase 84 U/L (35-105); Anion Gap 15.8 (5-19); Aspartate Amino Transferase 26 U/L (0-32); Blood Urea Nitrogen 29 mg/dL (8-23); Calcium 8.5 mg/dL (8.5-10.5); Carbon Dioxide 21 mmol/L (22-29); Chloride 106 mmol/L (98-107); Chol HDL Ratio 3.98 mg/dL (0.0-4.40); Cholesterol 175 mg/dL (0-200); Globulin 2.9 g/dL (1.3-4.6); Glucose 89 mg/dL (65-115); HDL Cholesterol 44 mg/dL (60-100); LDL Cholesterol Calculated 112 mg/dL (50-129); LDL HDL Ratio 2.55 RATIO (0.00-3.22); Magnesium 1.8 mg/dL (1.7-2.3); Osmolality Calculated 293 mOsm/kg (285-295); Phosphorus 3.4 mg/dL (2.5-4.5); Potassium 3.8 mmol/L (3.5-5.1); Sodium 139 mmol/L (136-145); Total Bilirubin 1.2 mg/dL (0.15-1.2); Total Protein 6.1 g/dL (6.6-8.7); Triglycerides 96 mg/dL (0-150)
[2024-06-09 06:02] LABS: Folate Level 11.6 ng/mL (4.8-37.3)
[2024-06-09] MEDS: levalbuterol 0.63 mg/3 mL Neb INHALATION ×3 (09:35→19:59)
[2024-06-09] MEDS: ipratropium 0.5 mg/2.5 mL Neb INHALATION ×3 (09:35→19:59)
[2024-06-09] MEDS: budesonide 0.5 mg/2 mL Neb INHALATION ×2 (09:35→19:59)
[2024-06-09] MEDS: cyanocobalamin 1,000 mcg/mL SDV 1000 MCG IM (10:41)
--- NOTE | 2024-06-09 10:53 | PC.NURSE ---
Dr. Davison gave verbal orders for a head CT without contrast this afternoon. Orders placed.
--- NOTE | 2024-06-09 12:06 | PM.PN ---
Subjective Subjective: Patient was seen this morning, I used a Mexican supervisor roller printing to speak to patient, she is alert to person, to place, not to time she can follow commands, speech therapy is at bedside, during my examination she does not have a facial droop, it is difficult to assess if she is slurring her words given the language barrier, she does have weakness of the left upper and left lower extremity but 3 out of 5 compared to 5/5 on the right, no complaints of dysphagia, choking or coughing Vitals/I&O/Wt Last Vital Signs Temp 98.2 F 06/09/24 10:00 Pulse 91 06/09/24 10:00 Resp 25 H 06/09/24 10:00 BP 189/100 06/09/24 10:00 Pulse Ox 92 06/09/24 10:00 O2 Del Method Room Air 06/09/24 09:35 O2 Flow Rate 5 06/08/24 14:29 06/08/24 06/09/24 06/09/24 22:59 06:59 14:59 Intake Total 0 / 0 1000 / 1000 Output Total 850 / 850 Balance 0 / 0 150 / 150 Weight last 48 hrs Weight 67 kg Weight 67 kg Weight 71 kg Weight 79.379 kg Physical Exam Const: COMMON NORMALS: no acute distress ORIENTATION/CONSCIOUSNESS: Yes awake and Yes oriented to person; not oriented to place and not oriented to time Resp: COMMON NORMALS: normal respiratory effort, No retractions, No use of accessory muscles and clear to auscultation bilaterally AUSCULTATION: clear to auscultation bilaterally Cardio: COMMON NORMALS: regular rate, regular rhythm, S1 normal heart sound present and S2 normal heart sound present RATE: regular rate RHYTHM: regular rhythm HEART SOUNDS: S1 normal heart sound present and S2 normal heart sound present GI: COMMON NORMALS: Normal to inspection, nondistended, normoactive bowel sounds present and non-tender Extremity: COMMON NORMALS: no pedal edema Neuro: SENSORIUM/ORIENTATION: Yes oriented to person, No oriented to place and No oriented to time Urinary Catheter Management: Evans: Cath Placed During This Visit: yes Reason for Continuing Indwelling Catheter: Accurate Measurement of Urinary Output in Critically Ill Patients Urinary Catheter Date of Insertion: 06/08/24 Data 06/09/24 05:00 06/09/24 05:00 A&P Assessment and plan (1) Acute right MCA stroke: CT/CT head thrombolytic [id number] IMPRESSION: There is a hypodense area along the right insular ribbon and in the subcortical right frontal region adjacent to the right frontal horn of unknown acuity, new when compared to prior CT of the head dated 01/07/2021. Consider MRI of the brain for further evaluation. CT/CT angio headneck* [id number] IMPRESSION: 1. Poor opacification of the superior M2 branch of the right MCA, concerning for reduced flow or evolving distal branch occlusion. Follow-up imaging with MRI brain is recommended. 2. Hypodensity involving the right insular ribbon and adjacent subcortical right frontal lobe, concerning for evolving ischemia in the right middle cerebral artery (MCA) territory. IMPRESSION: 1. No large vessel occlusion. 2. 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 Plan -Not a candidate for tenecteplase -Currently being medically managed -Allow for permissive hypertension -Treat if systolic greater than 220 or diastolic greater than 120 -IV hydralazine as needed -Aspirin, statin -Xarelto currently on hold Check A1c, lipid panel, echocardiogram. PT/OT/speech evaluation. (2) Fall: Monitor (3) Confusion: Monitor (4) Uncontrolled hypertension: Permissible hypertension for now. (5) Atrial fibrillation: Monitor heart rate (6) TOM (acute kidney injury): IV fluids (7) Left-sided epistaxis: Most likely due to fall in setting of home use of Xarelto Plan Hypoxia: Oxygen supplementation keeping saturation over 90%. Pulmicort twice daily, ipratropium, Xopenex every 6 hours. CODE STATUS: Discussed in detail with patient's daughter and granddaughter at bedside. DNR/DNI N.p.o. for now. Start diet as per speech evaluation. Full dose Lovenox will be sufficient for DVT prophylaxis. Protonix for PUD prophylaxis. PDMP PDMP Reviewed: Not Reviewed Attestations Medical Necessity Statement*: Patient requires hospitalization for acute CVA Diagnoses Acute right MCA stroke I63.511 Fall W19.XXXA Confusion R41.0 Uncontrolled hypertension I10 Atrial fibrillation I48.91 TOM (acute kidney injury) N17.9 Left-sided epistaxis R04.0
--- NOTE | 2024-06-09 15:00 | CTR_ITS ---
PROCEDURE INFORMATION: Exam: CT Head Without Contrast Exam date and time: 06/09/2024 2:39 PM Age: 88 years old Clinical indication: Other: Stroke 06/08/24 TECHNIQUE: Imaging protocol: Computed tomography of the head without contrast. Radiation optimization: All CT scans at this facility use at least one of these dose optimization techniques: automated exposure control; mA and/or kV adjustment per patient size (includes targeted exams where dose is matched to clinical indication); or iterative reconstruction. COMPARISON: CT angio headneck* [id number] 06/08/2024 11:38 AM RADIATION DOSE METRICS: Total DLP (mGy-cm): 2403.33 FINDINGS: Brain: No hemorrhage. No edema. Moderate diffuse cerebral atrophy and sequela of chronic small vessel ischemic disease. Old infarct noted in the right frontal lobe. No mass effect. Cerebral ventricles: No ventriculomegaly. Paranasal sinuses: Visualized sinuses are unremarkable. No fluid levels. Mastoid air cells: Visualized mastoid air cells are well aerated. Bones: Unremarkable. No acute fracture. Soft tissues: Unremarkable. CT/CT head wo con* [id number] IMPRESSION: No acute intracranial abnormality.
[2024-06-09] MEDS: pantoprazole 40 mg SDV IVP (18:13)
[2024-06-09] MEDS: enoxaparin 80 mg/0.8 mL Syringe 70 MG SUBCUT (18:14)
[2024-06-09] MEDS: atorvastatin 40 mg Tablet 80 MG PO (20:25)
[2024-06-09] MEDS: sodium chloride 0.9% 1,000 ML 50 ML IV (21:33)
[2024-06-10] VITALS (19 sets, daily range): BP systolic 147–198; BP diastolic 86–132; PULSE 57–112; RESP 15–30; TEMP 36.4–36.8; O2SAT 85–97
[2024-06-10 05:11] LABS: Basophils % 0.6 %; Eosinophils # 0.1 10^3/uL (0.0-0.8); Eosinophils % 1.5 %; Hematocrit 37.6 % (36-47); Lymphocytes % 15.6 %; Mean Corpuscular Hemoglobin 32.5 pg (27-33); Mean Corpuscular Volume 98.4 fl (85-98); Mean Platelet Volume 10.2 fL (7.4-10.4); Monocytes # 0.6 10^3/uL (0.2-0.9); Monocytes % 9.4 %; Neutrophils # 4.68 10^3/uL (1.8-7.7); Neutrophils % 72.4 %; Nucleated Red Blood Cells % 0 %; Platelet Count 180 10^3/cmm (157-399); Red Blood Count 3.82 10^6/uL (3.85-5.65); Red Cell Distribution Width 13.2 % (12.1-15.1); White Blood Count 6.47 10^3/uL (3.29-11.43)
[2024-06-10 05:36] LABS: Alanine Aminotransferase 13 U/L (0-33); Albumin Level 3.5 g/dL (3.5-5.2); Alkaline Phosphatase 88 U/L (35-105); Anion Gap 15.8 (5-19); Aspartate Amino Transferase 28 U/L (0-32); Blood Urea Nitrogen 26 mg/dL (8-23); Calcium 8.5 mg/dL (8.5-10.5); Carbon Dioxide 22 mmol/L (22-29); Chloride 110 mmol/L (98-107); Creatinine Clr Calc Pharmacy 30.9319; Globulin 2.8 g/dL (1.3-4.6); Glucose 92 mg/dL (65-115); Magnesium 1.9 mg/dL (1.7-2.3); Osmolality Calculated 302 mOsm/kg (285-295); Phosphorus 2.4 mg/dL (2.5-4.5); Potassium 3.8 mmol/L (3.5-5.1); Sodium 144 mmol/L (136-145); Total Bilirubin 1.2 mg/dL (0.15-1.2); Total Protein 6.3 g/dL (6.6-8.7)
[2024-06-10] MEDS: enoxaparin 80 mg/0.8 mL Syringe 70 MG SUBCUT (05:54)
[2024-06-10] MEDS: levalbuterol 0.63 mg/3 mL Neb INHALATION ×3 (07:36→19:41)
[2024-06-10] MEDS: budesonide 0.5 mg/2 mL Neb INHALATION ×2 (07:36→19:42)
[2024-06-10] MEDS: ipratropium 0.5 mg/2.5 mL Neb INHALATION ×3 (07:36→19:41)
[2024-06-10] MEDS: cyanocobalamin 1,000 mcg/mL SDV 1000 MCG IM (07:56)
[2024-06-10] MEDS: levothyroxine 112 mcg Tablet PO (07:56)
[2024-06-10] MEDS: docusate sodium 100 mg Capsule PO (07:56)
[2024-06-10] MEDS: levothyroxine 50 mcg Tablet PO (07:57)
[2024-06-10] MEDS: aspirin 81 mg EC Tablet PO (07:57)
[2024-06-10] MEDS: amlodipine 10 mg Tablet PO (09:26)
--- NOTE | 2024-06-10 10:49 | PC.CHAP ---
Pastoral Care Encounter/Spiritual Assessment Type of Contact [] Declined reference data expert visit [] Patient/Family/Request visit [] Outpatient visit [] Follow-up visit [] Physician referral [] Code/Alert [x] Routine visit [] Staff referral [] Actively dying [] Patient sleeping [x] Family support [] [] Out of room [] Palliative care [] [] Receiving care in room [] Pre-surgical visit [] Trauma [] Long length of stay [] ICU visit [] Other: Relational/Emotional Strength [x] Patient feels connected with others/family/visitors/staff [] Distress [] Loneliness/isolation [] Abandonment Spirituality of Patient [x] Person of [place] [] Attends Hindu of their [place] [x] Believes in Prayer [] Reads Bible or Congregation materials [] There are Spiritual issues to be addressed 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 Interventions [x] Prayer [x] Active listening [x] Non-anxious presence [x] Spiritual/emotional support [] Crisis/trauma care [] Spiritual counseling [] Bereavement support [] Provided bereavement packet [] Provided Bible/devotional materials [] Provided toy/stuffed animal, coloring book to patient or family member [] Provided Communion [] Anointing/[place] [] Salvation [x] Completed spiritual assessment [] Other: Impact on Illness or Injury [] Angry [] Fearful [] Anxious [] Often cries [] Exhaustion [] Unable to work [] Unable to attend gnosticism [] Unable to walk/stand [] Unable to read [] Unable to drive [] Unable to eat/drink [] Unable to sleep [] Unable to be with family [] Patient intubated [] Other: Summary Time spent with patient 5 min
[2024-06-10 10:57] LABS: Bilirubin Urine 1+ (Negative); Blood Urine 3+ (Negative); Glucose Urine UA Negative (Normal); Ketones Urine Trace (Negative); Leukocyte Esterase Urine 2+ (Negative); Nitrate Urine Negative (Negative); Protein Urine 1+ (Negative); Specific Gravity, Urine 1.021 (1.005-1.030); Urine Appearance Cloudy (CLEAR); pH Urine 5.5 (5-7)
[2024-06-10 11:02] LABS: Add Urine Microscopic? YES; Bacteria Urine None Seen /hpf; Hyaline Casts Urine 7.42 /lpf; RBC Urine >100 /hpf (0-2)
[2024-06-10 11:24] LABS: UA Slide Review UA Slide Review Perf; Urine Color Orange (Yellow)
[2024-06-10 11:25] LABS: Add Urine Culture? Yes
[2024-06-10] MEDS: acetaminophen 325 mg Tablet 650 MG PO (13:50)
--- NOTE | 2024-06-10 14:10 | CTR_ITS ---
PROCEDURE INFORMATION: Exam: CT Head Without Contrast Exam date and time: 06/10/2024 2:45 PM Age: 88 years old Clinical indication: Pain; Altered mental status/memory loss; Headache; Additional info: Tinnitus/head pain/increased confusion TECHNIQUE: Imaging protocol: Computed tomography of the head without contrast. Radiation optimization: All CT scans at this facility use at least one of these dose optimization techniques: automated exposure control; mA and/or kV adjustment per patient size (includes targeted exams where dose is matched to clinical indication); or iterative reconstruction. COMPARISON: CT head wo con* [id number] 06/09/2024 2:39 PM RADIATION DOSE METRICS: Total DLP (mGy-cm): 772.88 FINDINGS: Brain: No intracranial hemorrhage. There is global parenchymal volume loss. Periventricular white matter hypoattenuation is nonspecific but most likely due to small vessel disease. No evidence of acute territorial infarct or cerebral edema. No mass effect or midline shift. Cerebral ventricles: Prominent ventricles likely secondary to volume loss. Paranasal sinuses: Visualized sinuses are unremarkable. No fluid levels. Mastoid air cells: Visualized mastoid air cells are well aerated. Bones: Unremarkable. No acute fracture. Soft tissues: Unremarkable. CT/CT head wo con* [id number] IMPRESSION: No acute intracranial findings.
[2024-06-10] MEDS: LORazepam 2 mg/mL INJ 1 mL 1 MG IVP (14:34)
[2024-06-10 15:50] LABS: Basophils % 0.5 %; Eosinophils # 0.1 10^3/uL (0.0-0.8); Eosinophils % 1.8 %; Hematocrit 37.8 % (36-47); Lymphocytes # 0.9 10^3/uL (0.8-4.8); Lymphocytes % 14.3 %; Mean Platelet Volume 9.9 fL (7.4-10.4); Monocytes # 0.6 10^3/uL (0.2-0.9); Monocytes % 9.9 %; Neutrophils # 4.53 10^3/uL (1.8-7.7); Neutrophils % 73.3 %; Nucleated Red Blood Cells % 0 %; Platelet Count 179 10^3/cmm (157-399); Red Blood Count 3.78 10^6/uL (3.85-5.65); Red Cell Distribution Width 13.2 % (12.1-15.1); White Blood Count 6.17 10^3/uL (3.29-11.43)
[2024-06-10] MEDS: metoclopramide 5 mg/mL SDV 2 mL IVP (16:04)
[2024-06-10] MEDS: pantoprazole 40 mg SDV IVP (16:04)
[2024-06-10] MEDS: sucralfate 1 gm/10 mL Oral Liq UDC PO ×2 (16:04→21:06)
[2024-06-10] MEDS: sodium chloride 0.9% 1,000 ML 50 ML IV (16:05)
--- NOTE | 2024-06-10 16:05 | PM.CCNAC ---
Critical Care Event Note The high probability of a clinically significant, sudden or life threatening deterioration of the patient's [] system(s) required my full and direct attention, intervention and personal management. The critical care time is as shown. This time is in addition to time spent performing any reported procedures but includes the following: [x] Data and vital sign review and interpretation [x] Patient assessment, examination and intervention [x] Documentation [x] Medication orders and management Critical Care Time Code activated: No Critical Care Time (min): 35 Additional information about critical care time: - Patient had a episode of black tarry stool at roughly 3 PM, she is on therapeutic Lovenox, which was held - Hemoglobin ordered - Patient had a episode of hematemesis, about 250 cc, - Patient was immediately examined, she is normotensive, on room air, no tachycardia, she had received her Ativan for her CT of her head, which had no acute findings, she does awaken but easily falls asleep, - Her shortness bloodstain, posterior pharynx, there is blood that is also black and tarry, her breath has the odor of the GI bleed - Discussed with nursing staff to move down to ICU urgently - Protonix, Carafate, octreotide drip - IV fluids -Nausea medication ordered - N.p.o. - Lovenox has been stopped - Monitor hemoglobin a 4 hours - Monitor hemodynamics - Spoke to general surgery, Dr. Foster about doing the EGD Coding Level of Care Code Acute Code for [facility] Fwd
--- NOTE | 2024-06-10 16:19 | PC.SLP ---
DESTATICIZER FEEDER unable to reassess swallowing this date, as the patient is now n.p.o. due to suspected GI bleed. DESTATICIZER FEEDER will attempt to follow-up with the patient tomorrow, if the patient is able.
[2024-06-10] MEDS: octreotide 500 MCG in sodium chloride 0.9% (100 ml) 100 ML 10.1 MCG IV (16:27)
--- NOTE | 2024-06-10 16:31 | P.PN_ITS ---
Subjective 2 Subjective: Patient was examined this morning, her granddaughter is at bedside, she is alert to person, to place, not to time, she does follow commands, I used her grand daughter at bedside as a veterinary meat inspector, she has no complaints, her strength of her left upper left lower extremity is improving, she is able to follow all commands, no facial droop, it is difficult to interpret if she has slurring of her words as she only speaks Marshallese, I cannot discern any facial droop, she denies any visual deficits, continues to have significant bruising from her fall she has chronic pain, but no new hip pain or back pain pain complaints Vitals/I&O/Wt Last Vital Signs Temp 97.6 F 06/10/24 16:00 Pulse 78 06/10/24 16:00 Resp 18 06/10/24 16:00 BP 172/86 06/10/24 16:00 Pulse Ox 94 06/10/24 16:00 O2 Del Method Room Air 06/10/24 16:00 O2 Flow Rate 5 06/08/24 14:29 06/10/24 06/10/24 06/10/24 06:59 14:59 22:59 Intake Total 600 / 600 1000 / 1600 Output Total 1120 / 1720 Balance -1120 / 141.667 600 / 600 1000 / 1600 Weight last 48 hrs Weight 66.962 kg Weight 67 kg Weight 67 kg Physical Exam 2 Const: COMMON NORMALS: no acute distress ORIENTATION/CONSCIOUSNESS: Yes awake, Yes oriented to person and Yes oriented to place Resp: COMMON NORMALS: normal respiratory effort, No retractions, No use of accessory muscles and clear to auscultation bilaterally AUSCULTATION: clear to auscultation bilaterally Cardio: COMMON NORMALS: regular rate, regular rhythm, S1 normal heart sound present and S2 normal heart sound present RATE: regular rate RHYTHM: r egular rhythm HEART SOUNDS: S1 normal heart sound present and S2 normal heart sound present GI: COMMON NORMALS: Normal to inspection, nondistended, normoactive bowel sounds present and non-tender Extremity: COMMON NORMALS: no calf tenderness Neuro: SENSORIUM/ORIENTATION: Yes oriented to person and Yes oriented to place OTHER: Left upper, left lower extremity strength is diminished, compared to the right, roughly 3 out of 5, Psych: COMMON NORMALS: mental status grossly normal Urinary Catheter Management: Evans: Cath Placed During This Visit: yes Reason for Continuing Indwelling Catheter: Accurate Measurement of Urinary Output in Critically Ill Patients Urinary Catheter Date of Insertion: 06/08/24 Data 06/10/24 15:45 06/10/24 04:28 A&P Assessment and plan (1) Acute right MCA stroke: CT/CT head thrombolytic [id number] IMPRESSION: There is a hypodense area along the right insular ribbon and in the subcortical right frontal region adjacent to the right frontal horn of unknown acuity, new when compared to prior CT of the head dated 01/07/2021. Consider MRI of the brain for further evaluation. CT/CT angio headneck* [id number] IMPRESSION: 1. Poor opacification of the superior M2 branch of the right MCA, concerning for reduced flow or evolving distal branch occlusion. Follow-up imaging with MRI brain is recommended. 2. Hypodensity involving the right insular ribbon and adjacent subcortical right frontal lobe, concerning for evolving ischemia in the right middle cerebral artery (MCA) territory. IMPRESSION: 1. No large vessel occlusion. 2. 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 Plan -Not a candidate for tenecteplase -Currently being medically managed - Completed permissive hypertension, resume blood pressure medications in a graduated fashion -IV hydralazine as needed -Aspirin, statin -Xarelto currently on hold, resume to therapeutic Lovenox overnight, CT head this morning has been ordered Check A1c 5.7, echocardiogram. PT/OT/speech evaluation. (2) Fall: Monitor (3) Confusion: Monitor (4) Uncontrolled hypertension: Permissible hypertension for now. (5) Atrial fibrillation: Monitor heart rate (6) TOM (acute kidney injury): IV fluids (7) Left-sided epistaxis: Most likely due to fall in setting of home use of Xarelto Plan Hypoxia: Oxygen supplementation keeping saturation over 90%. Pulmicort twice daily, ipratropium, Xopenex every 6 hours. Episodes of confusion during the night obtain a UA, repeat head CT CODE STATUS: Discussed in detail with patient's daughter and granddaughter at bedside. DNR/DNI Russ to dysphagia level 4 diet, moderately thickened Full dose Lovenox will be sufficient for DVT prophylaxis. Protonix for PUD prophylaxis. PDMP PDMP Reviewed: Not Reviewed Attestations 2 Medical Necessity Statement*: Patient requires hospitalization for acute CVA Diagnoses Acute right MCA stroke I63.511 Fall W19.XXXA Confusion R41.0 Uncontrolled hypertension I10 Atrial fibrillation I48.91 TOM (acute kidney injury) N17.9 Left-sided epistaxis R04.0
--- NOTE | 2024-06-10 16:41 | PC.NURSE ---
Addendum entered by Bibi Vásquez LPN 06/10/24 17:16: This nurse called report to LUPE Lofton in ICU at 1715. Original Note: This nurse attempted to call report to ICU at 1620. They will have to call back.
[2024-06-10 17:12] LABS: Hematocrit 34.4 % (36-47)
[2024-06-10 17:16] LABS: INR 1.12 (0.8-1.2)
[2024-06-10] MEDS: piperacillin-tazobactam 3.375 GM in sodium chloride 0.9% (plus) 50 ML IV (17:29)
--- NOTE | 2024-06-10 17:39 | PM.CONSULT ---
Providers/Reason For Consult Consulting Physician/Specialty*: General Surgery Reason for Consult*: Upper GI bleeding Attending Physician: Abelardo Davison MD Primary Care Provider: Torey Cade MD History of Present Illness History of Present Illness Mercedez Ramos is a 88 year old female who presented to the hospital with embolic stroke, has been improving from this aspect and she was initiated on anticoagulation after which she has developed black tarry stools and bloody emesis. Of note patient also presented with epistaxis when she came into the hospital and today she has also been noted to have bleeding from the nose. I have talked to the patient family members who Explained that they think epistaxis plays also a role in the possibility of this GI bleed as she may be swallowing significant amount of blood, I do agree with this possibility but per nursing report today patient did have a melena as well as bloody emesis before they had noticed a recurrent epistaxis. Review of Systems General: Reports: 10 or more systems reviewed and unremarkable except in HPI and below Medications/Allergies Home Medications ?Medication ?Instructions ?Recorded ?Confirmed ?Last Taken ?Type aspirin 325 mg tablet 325 mg PO DAILY 06/02/20 06/08/24 02/08/23 History calcium carbonate (Calcium 600) 600 mg PO DAILY 06/02/20 06/08/24 02/08/23 History docusate sodium 100 mg capsule 100 mg PO DAILY 06/02/20 06/08/24 02/08/23 History (Colace) fesoterodine 4 mg tablet,extended 4 mg PO DAILY 06/02/20 06/08/24 02/08/23 History release 24 hr (Toviaz) levothyroxine 112 mcg capsule 112 mcg PO DAILY 06/02/20 06/08/24 02/08/23 History pantoprazole 40 mg tablet,delayed 40 mg PO BEDTIME 06/02/20 06/08/24 02/07/23 History release rivaroxaban 20 mg tablet (Xarelto) 20 mg PO QPM 06/02/20 06/08/24 02/08/23 History rosuvastatin 40 mg tablet (Crestor) 40 mg PO BEDTIME 06/02/20 06/08/24 02/07/23 History valsartan 320 1 tab PO DAILY 06/02/20 06/08/24 02/08/23 History mg-hydrochlorothiazide 25 mg tablet carvedilol 6.25 mg tablet (Coreg) 6.25 mg PO BID #90 tabs 08/03/21 06/08/24 02/08/23 Rx ezetimibe 10 mg tablet 10 mg PO DAILY 01/23/22 06/08/24 02/08/23 History isosorbide mononitrate 120 mg 120 mg PO DAILY 01/23/22 06/08/24 02/08/23 History tablet,extended release 24 hr albuterol sulfate 90 mcg/actuation 2 puff inhalation Q4H PRN Wheezing 06/08/24 06/08/24 Unknown History aerosol inhaler (Ventolin HFA) levothyroxine 50 mcg tablet 50 mcg PO DAILY 06/08/24 06/08/24 Unknown History Allergies Allergy/AdvReac Type Severity Reaction Status Date / Time No Known Allergies Allergy Verified 02/08/23 10:04 Current Medications Generic Name Dose Route Start Last Admin Trade Name Freq PRN Reason Stop Dose Admin Acetaminophen 650 mg 06/08/24 16:43 06/10/24 13:50 Acetaminophen 325 Mg Tablet PO 650 mg Q6H PRN Administration Mild/Mod Pain Or Temp >/= 101 Amlodipine Besylate 10 mg 06/10/24 09:00 06/10/24 09:26 Amlodipine 10 Mg Tablet PO 10 mg DAILY FARA Administration Aspirin 81 mg 06/09/24 12:10 06/10/24 07:57 Aspirin 81 Mg Ec Tablet PO 81 mg DAILY FARA Administration Atorvastatin Calcium 80 mg 06/08/24 21:00 06/09/24 20:25 Atorvastatin 40 Mg Tablet PO 80 mg BEDTIME FARA Administration Budesonide 0.5 mg 06/08/24 20:00 06/10/24 07:36 Budesonide 0.5 Mg/2 Ml Neb INHALATION 0.5 mg BID.RESPIRATORY FARA Administration Cyanocobalamin 1,000 mcg 06/09/24 09:00 06/10/24 07:56 Cyanocobalamin 1,000 Mcg/Ml Sdv IM 1,000 mcg DAILY FARA Administration Docusate Sodium 100 mg 06/08/24 18:00 06/10/24 17:17 Docusate Sodium 100 Mg Capsule PO Not Given BID FARA Sodium Chloride 1,000 mls @ 50 mls/hr 06/08/24 13:15 06/10/24 16:05 Sodium Chloride 0.9% IV 50 mls/hr .Q20H FARA Administration Octreotide Acetate 500 mcg/ 101 mls @ 10.1 mls/hr 06/10/24 16:00 06/10/24 16:27 Sodium Chloride IV 50 mcg/hr .Q10H FARA 10.1 mls/hr Administration 50 MCG/HR Levothyroxine Sodium 112 mcg 06/09/24 09:00 06/10/24 07:56 Levothyroxine 112 Mcg Tablet PO 112 mcg DAILY FARA Administration Levothyroxine Sodium 50 mcg 06/09/24 09:00 06/10/24 07:57 Levothyroxine 50 Mcg Tablet PO 50 mcg DAILY FARA Administration Metoclopramide HCl 5 mg 06/10/24 15:48 06/10/24 16:04 Metoclopramide 5 Mg/Ml Sdv 2 Ml IVP 5 mg Q6H PRN Administration NAUSEA AND VOMITING Pantoprazole Sodium 40 mg 06/10/24 16:00 06/10/24 16:04 Pantoprazole 40 Mg Sdv IVP 40 mg Q12H FARA Administration Sucralfate 1 gm 06/10/24 16:00 06/10/24 16:04 Sucralfate 1 Gm/10 Ml Oral Liq Udc PO 1 gm Q6H FARA Administration PFSH Acute PFSH: Medical History (Updated 06/10/24 @ 17:44 by Gomez Koroma MD) Syncope Hyperlipidemia Adenocarcinoma of sigmoid colon Hypothyroidism Type 2 diabetes mellitus Atrial fibrillation Uncontrolled hypertension Surgical History History of umbilical hernia repair History of exploratory laparotomy History of ventral hernia repair Social History Smoking and tobacco/nicotine status: never used tobacco/nicotine Vitals/I&O/Wt Last Vital Signs Temp 97.6 F 06/10/24 16:00 Pulse 78 06/10/24 16:00 Resp 18 06/10/24 16:00 BP 172/86 06/10/24 16:00 Pulse Ox 94 06/10/24 16:00 O2 Del Method Room Air 06/10/24 16:00 O2 Flow Rate 5 06/08/24 14:29 06/10/24 06/10/24 06/10/24 06:59 14:59 22:59 Intake Total 600 / 600 1000 / 1600 Output Total 1120 / 1720 Balance -1120 / 141.667 600 / 600 1000 / 1600 Weight last 48 hrs Weight 147 lb 10 oz Weight 147 lb 11.355 oz Weight 147 lb 11.355 oz Physical Exam Narrative: Patient appears weak, noted to have slight oozing from the left nostril. There are some blood residue in the mouth. Abdominal exam is benign. Urinary Catheter Management: Evans: Cath Placed During This Visit: yes Reason for Continuing Indwelling Catheter: Accurate Measurement of Urinary Output in Critically Ill Patients Urinary Catheter Date of Insertion: 06/08/24 Data 06/10/24 15:45 06/10/24 04:28 A&P Assessment and plan (1) Upper GI bleeding: Plan After complete history physical examination and review of all available clinical data I have decided to offer the patient an upper endoscopy for evaluation for possible upper GI bleeding and bleeding control. I discussed with the family all possible risk benefits including the risk of perforation requiring surgical intervention transfer to higher level of care. I do agree that there is a possibility that her melena and hematemesis was precipitated by continuous retronasal bleeding that the patient was swallowing, but unfortunately at this point I think proceeding with upper endoscopy is the safest route for the patient, as she needs to be restarted on anticoagulation and an upper GI source of bleeding needs to be ruled out before this happens. In addition we have discussed the case with medical team and ENT and decision has been made to stop nasal packing overnight to prevent further bleeding from the nose. I will proceed with upper endoscopy early in the morning, family members agree with the plan. PDMP PDMP Reviewed: Not Reviewed Coding Level of Care Code Acute Code for Chg Fwd Diagnoses Upper GI bleeding K92.2
--- NOTE | 2024-06-10 18:03 | PC.NURSE ---
Pt safely transferred to ICU 7 via bed at 1800.
--- NOTE | 2024-06-10 18:07 | PC.NURSE ---
Arrived on unit, daughter at bedside, rhino rocket to both nostril with scant amount blood leaking from right nostril
[2024-06-10] MEDS: LORazepam 2 mg/mL INJ 1 mL 0.5 MG IVP (21:06)
[2024-06-10] MEDS: atorvastatin 40 mg Tablet 80 MG PO (21:06)
[2024-06-10 21:57] LABS: Hematocrit 37.9 % (36-47)
[2024-06-10] MEDS: hyDRALAzine 20 mg/mL INJ 1 mL 10 MG IVP (23:08)
[2024-06-11] VITALS (53 sets, daily range): BP systolic 142–214; BP diastolic 78–150; PULSE 65–122; RESP 15–29; TEMP -7.7–37.2; O2SAT 77–94
[2024-06-11] MEDS: piperacillin-tazobactam 3.375 GM in sodium chloride 0.9% (plus) 50 ML IV ×3 (02:18→18:23)
[2024-06-11] MEDS: octreotide 500 MCG in sodium chloride 0.9% (100 ml) 100 ML 10.1 MCG IV ×2 (02:18→12:12)
[2024-06-11] MEDS: pantoprazole 40 mg SDV IVP ×2 (04:25→17:11)
--- NOTE | 2024-06-11 04:50 | PC.NURSE ---
Hold Dr Martin gave orders to hold 0400 PO carafate dose. Patient is drowsy and coughed when taking pills earlier in shift. Medication held.
[2024-06-11 05:07] LABS: Basophils % 0.4 %; Eosinophils % 0.2 %; Lymphocytes # 0.6 10^3/uL (0.8-4.8); Lymphocytes % 11.1 %; Mean Corpuscular HGB Conc 32.8 g/dL (30-55); Mean Corpuscular Hemoglobin 32.3 pg (27-33); Mean Corpuscular Volume 98.5 fl (85-98); Mean Platelet Volume 10.9 fL (7.4-10.4); Monocytes # 0.5 10^3/uL (0.2-0.9); Monocytes % 9.3 %; Neutrophils # 4.25 10^3/uL (1.8-7.7); Neutrophils % 78.8 %; Nucleated Red Blood Cells % 0 %; Platelet Count 188 10^3/cmm (157-399); Red Blood Count 4.06 10^6/uL (3.85-5.65); Red Cell Distribution Width 13.2 % (12.1-15.1); White Blood Count 5.39 10^3/uL (3.29-11.43)
[2024-06-11 05:47] LABS: Alanine Aminotransferase 16 U/L (0-33); Albumin Level 3.7 g/dL (3.5-5.2); Alkaline Phosphatase 93 U/L (35-105); Blood Urea Nitrogen 29 mg/dL (8-23); Calcium 8.5 mg/dL (8.5-10.5); Carbon Dioxide 20 mmol/L (22-29); Chloride 111 mmol/L (98-107); Creatinine Clr Calc Pharmacy 33.7439; Globulin 3.3 g/dL (1.3-4.6); Glucose 143 mg/dL (65-115); Magnesium 1.9 mg/dL (1.7-2.3); Osmolality Calculated 306 mOsm/kg (285-295); Phosphorus 2.9 mg/dL (2.5-4.5); Sodium 144 mmol/L (136-145); Total Bilirubin 1.4 mg/dL (0.15-1.2)
[2024-06-11 05:49] LABS: Anion Gap 17.3 (5-19); Aspartate Amino Transferase 30 U/L (0-32); Potassium 4.3 mmol/L (3.5-5.1)
--- NOTE | 2024-06-11 06:05 | W.PM.OPSUD ---
Surgery/Procedure H&P Update DATE OF PROCEDURE: June 11, 2024 DATE H&P PERFORMED: 06/10/24 H&P UPDATE INFORMATION: I have reviewed H&P completed within last 30 days, I have examined patient prior to procedure, No changes to prior documentation, H&P is in [facility] EMR on date indicated and Risks and benefits of the procedure reviewed PLANNED PROCEDURE: Operation Date: 06/11/24 07:00 Proposed Procedures p EGD(Not Applicable) - Gomez Koroma MD
--- NOTE | 2024-06-11 07:06 | PM.MISC ---
Miscellaneous Note Purpose of Documentation: Update on patient care Note: After a discussion with anesthesia team, we have decided to defer EGD for tomorrow to allow the patient time to be able to remove the nasal Rockets, therefore allowing us to do monitored anesthesia care instead of intubation as there is concerned of after intubation will be difficult to extubate her. Family member was informed agrees with the plan. Currently patient is stable hemoglobin appears to be stable also. In the event of any changes in clinical status we will have to proceed emergently with general anesthesia.
--- NOTE | 2024-06-11 07:48 | PC.NURSE ---
charge master coordinator rounds 06/10 @ [id number]
[2024-06-11] MEDS: levalbuterol 0.63 mg/3 mL Neb INHALATION ×3 (07:55→19:37)
[2024-06-11] MEDS: ipratropium 0.5 mg/2.5 mL Neb INHALATION ×3 (07:55→19:37)
[2024-06-11] MEDS: budesonide 0.5 mg/2 mL Neb INHALATION ×2 (07:55→19:37)
[2024-06-11] MEDS: cyanocobalamin 1,000 mcg/mL SDV 1000 MCG IM (08:52)
[2024-06-11] MEDS: levothyroxine 50 mcg Tablet PO (08:53)
[2024-06-11] MEDS: amlodipine 10 mg Tablet PO (08:53)
[2024-06-11] MEDS: docusate sodium 100 mg Capsule PO ×2 (08:53→17:12)
[2024-06-11] MEDS: levothyroxine 112 mcg Tablet PO (08:53)
[2024-06-11] MEDS: morphine 4 mg/mL SDV 1 mL 2 MG IVP (10:07)
[2024-06-11 10:14] LABS: Hematocrit 37.3 % (36-47)
[2024-06-11] MEDS: cloNIDine 0.2 mg/24 hr Patch 1 PATCH TRANSDERMA (14:03)
--- NOTE | 2024-06-11 14:16 | P.PN_ITS ---
Subjective 2 Subjective: - Patient was examined this morning, she is alert to person, to place, not to time, she does follow commands - She is currently in ICU, normotensive, afebrile, on room air, -I used a environmental department manager, she denies any celi n complaints, she is able to follow commands, continues to have left upper left lower extremity weakness, but at baseline compared to yesterday -She has not coughed up any blood -She does have some trickling bleeding a round her right nares -I injected more saline into the right n janki, approximately 4 cc -Monitor it thereafter, seems like most of the bleeding has stopped -Discussed with the patient that we will continue to monitor closely, if her bleeding persist we may have to transfer her for ENT evaluation - Daughter is at bedside which helped in translation, examine again most of the bleeding now looks like it has stopped, it started to crust over - Discussed with grand daughter the plan on continue to monitoring her bleeding, or from her right naris if it continues to bleed as we do not have ENT coverage as inpatient, would recommend for her to be transferred for ENT evaluation, but for now we will continue to hold aspirin, hold all blood thinners, hold Lovenox - Discussed risk and benefits, patient a nd grand daughter voiced understanding all questions answered, agreed to proceed - If she continues to bleed from the rig ht naris, will need to transfer her to tertiary level center, for the evaluation for ENT - She is reexamined earlier in the after noon, no significant bleeding from the right or left nares, most of his crusted over -Patient is alert to person, place, she follows commands, - Discussed trying oral diet, continuing PT OT, monitoring her hemoglobin, so far stable at 12.6 - Spoke to general surgery, likely no ne ed for EGD at this time, as I think that her bleeding was likely from her epistaxis, hemoglobin stable hemodynamic stable Vitals/I&O/Wt Last Vital Signs Temp 99.0 F 06/11/24 06:35 Pulse 79 06/11/24 14:03 Resp 19 H 06/11/24 13:30 BP 189/96 06/11/24 14:03 Pulse Ox 93 06/11/24 13:30 O2 Del Method Room Air 06/11/24 13:30 O2 Flow Rate 3 06/10/24 19:42 06/10/24 06/11/24 06/11/24 22:59 06:59 14:59 Intake Total 1190.546 / 1790.546 104.772 / 1895.318 784.782 / 784.782 Output Total 1000 / 1000 Balance 190.546 / 790.546 104.772 / 895.318 784.782 / 784.782 Weight last 48 hrs Weight 68.5 kg Weight 66.962 kg Physical Exam 2 Const: COMMON NORMALS: no acute distress ORIENTATION/CONSCIOUSNESS: Yes awake, Yes oriented to person and Yes oriented to place HENMT: OTHER: Bilateral Rhino Rocket in place Eye: COMMON NORMALS: Equal, round and reactive pupils present PUPIL: Yes Equal, round and reactive pupils present Resp: COMMON NORMALS: normal respiratory effort, No retractions, No use of accessory muscles and clear to auscultation bilaterally AUSCULTATION: clear to auscultation bilaterally Cardio: COMMON NORMALS: regular rate, regular rhythm, S1 normal heart sound present and S2 normal heart sound present RATE: regular rate RHYTHM: r egular rhythm HEART SOUNDS: S1 normal heart sound present and S2 normal heart sound present GI: COMMON NORMALS: Normal to inspection, nondistended, normoactive bowel sounds present and non-tender Extremity: COMMON NORMALS: no pedal edema Neuro: SENSORIUM/ORIENTATION: Yes oriented to person and Yes oriented to place Psych: COMMON NORMALS: mental status grossly normal Skin: NARRATIVE SKIN EXAM: Multiple contusions, right brow, right cheek Urinary Catheter Management: Evans: Cath Placed During This Visit: yes Reason for Continuing Indwelling Catheter: Accurate Measurement of Urinary Output in Critically Ill Patients Urinary Catheter Date of Insertion: 06/08/24 Data 06/11/24 09:55 06/11/24 04:30 Micro: Microbiology 06/10/24 10:34 Urine Culture - Preliminary Urine,Clean Catch Gram Negative Rods 06/10/24 15:15 Occult Blood (FIT) - Final Stool A&P Assessment and plan (1) Acute right MCA stroke: CT/CT head thrombolytic [id number] IMPRESSION: There is a hypodense area along the right insular ribbon and in the subcortical right frontal region adjacent to the right frontal horn of unknown acuity, new when compared to prior CT of the head dated 01/07/2021. Consider MRI of the brain for further evaluation. CT/CT angio headneck* [id number] IMPRESSION: 1. Poor opacification of the superior M2 branch of the right MCA, concerning for reduced flow or evolving distal branch occlusion. Follow-up imaging with MRI brain is recommended. 2. Hypodensity involving the right insular ribbon and adjacent subcortical right frontal lobe, concerning for evolving ischemia in the right middle cerebral artery (MCA) territory. IMPRESSION: 1. No large vessel occlusion. 2. 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 cardiac echo Normal left ventricular size and systolic function, EF 65%.moderate left ventricular hypertrophy. No regional wall motion abnormalities. Grade I/IV diastolic dysfunction (abnormal relaxation filling pattern), normal to mildly elevated filling pressures. Moderately increased right atrial size. Severely increased left atrial volume 46 ml/m squared. Moderate mitral annular calcification. Mild mitral valve regurgitation. Aortic valve sclerosis. Moderate aortic valve calcification. Mild aortic valve regurgitation. Mild tricuspid valve regurgitation. Severe pulmonary hypertension with an estimated pulmonary artery peak systolic pressure of 76 mmHg. Mild pulmonary valve regurgitation. There is no pericardial effusion. There are no intracardiac masses. Compared to the study from 11/08/2020, there is a wall development of severe pulmonary hypertension Plan -Not a candidate for tenecteplase -Currently being medically managed - Completed permissive hypertension, resume blood pressure medications in a graduated fashion -IV hydralazine as needed -Aspirin, statin -Xarelto currently on hold, therapeutic Lovenox on hold, CT head no acute findings Check A1c 5.7, - PT/OT/speech evaluation. (2) Fall: Monitor (3) Confusion: - Likely secondary urinary tract infection, currently on Zosyn (4) Uncontrolled hypertension: Resume blood pressure medications (5) Atrial fibrillation: Monitor heart rate Currently off anticoagulant therapy (6) TOM (acute kidney injury): IV fluids (7) Left-sided epistaxis: (8) Epistaxis: - Bilateral nares epistaxis -Status post bilateral Rhino Rocket placement - Left Rhino Rocket injected, roughly 3 cc of normal saline - Right Rhino Rocket injected roughly 6 cc of normal saline - Will keep them in for now - Likely keep in for 2 weeks - Will continue to hold anticoagulant therapy, discussed risk benefits, patient and family voiced understanding, all questions answered Plan Urinary tract infection, continue Zosyn Possible aspiration, with epistaxis, continue Zosyn, aspiration precautions Encephalopathy episodes, likely second to UTI, continue Zosyn CODE STATUS: Discussed in detail with patient's daughter and granddaughter at bedside. DNR/DNI dysphagia level 4 diet, moderately thickened Full dose Lovenox will be sufficient for DVT prophylaxis currently on hold due to concern for epistaxis, SCDs for now Protonix for PUD prophylaxis. PDMP PDMP Reviewed: Not Reviewed Attestations 2 Medical Necessity Statement*: Patient requires hospitalization for CVA, epistaxis Diagnoses Acute right MCA stroke I63.511 Fall W19.XXXA Confusion R41.0 Uncontrolled hypertension I10 Atrial fibrillation I48.91 TOM (acute kidney injury) N17.9 Left-sided epistaxis R04.0 Epistaxis R04.0
--- NOTE | 2024-06-11 14:36 | PC.OT ---
OT TREATMENT ATTEMPTED IN P.M. PATIENT SLEEPING SOUNDLY; IS OBSERVED SLEEPING THROUGH RT TX. WILL ATTEMPT AGAIN TOMORROW.
--- NOTE | 2024-06-11 15:49 | P.PN_ITS ---
Subjective 2 Subjective: Patient has remained stable, no additional episodes of melena. Does not have any more hematemesis. Vitals/I&O/Wt Last Vital Signs Temp 97.8 F 06/11/24 13:30 Pulse 84 06/11/24 15:30 Resp 18 06/11/24 14:30 BP 200/105 06/11/24 15:30 Pulse Ox 91 06/11/24 15:30 O2 Del Method Room Air 06/11/24 15:30 O2 Flow Rate 3 06/10/24 19:42 06/11/24 06/11/24 06/11/24 06:59 14:59 22:59 Intake Total 104.772 / 1895.318 834.782 / 834.782 Balance 104.772 / 895.318 834.782 / 834.782 Weight last 48 hrs Weight 151 lb 0.266 oz Weight 147 lb 10 oz Physical Exam 2 HENMT: OTHER: Rhino Rockets in each nare, appears to still have slight amount of bleeding from the nostrils GI: OTHER: Abdomen soft nontender nondistended Urinary Catheter Management: Evans: Cath Placed During This Visit: yes Reason for Continuing Indwelling Catheter: Accurate Measurement of Urinary Output in Critically Ill Patients Urinary Catheter Date of Insertion: 06/08/24 Data 06/11/24 09:55 06/11/24 04:30 Micro: Microbiology 06/10/24 10:34 Urine Culture - Preliminary Urine,Clean Catch Gram Negative Rods 06/10/24 15:15 Occult Blood (FIT) - Final Stool A&P Assessment and plan (1) Upper GI bleeding: Plan After significant discussion with the medical team and after evaluating the patient over the last 24 hours at this point is most likely that her bleeding was coming from the nose rather than a GI bleed. We have decided to defer EGD and will only proceed in the case of worsening clinical status of the patient has symptoms concerning for GI bleed. Since patient appears to still have some mild oozing from the nostrils ENT evaluation will be recommended. General surgery will remain available as needed otherwise will sign off PDMP PDMP Reviewed: Not Reviewed Attestations 2 Medical Necessity Statement*: Per medical team Coding Level of Care Code Acute Code for Chg Fwd Diagnoses Upper GI bleeding K92.2
[2024-06-11] MEDS: carvedilol 6.25 mg Tablet PO (17:12)
[2024-06-11] MEDS: acetaminophen 325 mg Tablet 650 MG PO (17:12)
--- NOTE | 2024-06-11 22:30 | PC.NURSE ---
Hold Received order from Dr Martin to hold patient's PO atorvastatin due to patient's decreased level of consciousness.
[2024-06-12] VITALS (37 sets, daily range): BP systolic 138–193; BP diastolic 71–141; PULSE 68–106; RESP 14–28; TEMP 37.1–37.6; O2SAT 84–96
[2024-06-12] MEDS: hyDRALAzine 20 mg/mL INJ 1 mL 10 MG IVP ×2 (00:32→05:33)
[2024-06-12] MEDS: piperacillin-tazobactam 3.375 GM in sodium chloride 0.9% (plus) 50 ML IV ×3 (02:19→17:52)
[2024-06-12] MEDS: pantoprazole 40 mg SDV IVP ×2 (04:55→17:51)
[2024-06-12 05:28] LABS: Basophils % 0.3 %; Eosinophils # 0.1 10^3/uL (0.0-0.8); Eosinophils % 1.4 %; Hematocrit 35.5 % (36-47); Lymphocytes # 0.7 10^3/uL (0.8-4.8); Lymphocytes % 9.3 %; Mean Corpuscular HGB Conc 34.1 g/dL (30-55); Mean Corpuscular Hemoglobin 32.9 pg (27-33); Mean Corpuscular Volume 96.5 fl (85-98); Mean Platelet Volume 9.9 fL (7.4-10.4); Monocytes # 0.7 10^3/uL (0.2-0.9); Monocytes % 8.6 %; Neutrophils # 6.13 10^3/uL (1.8-7.7); Neutrophils % 80.1 %; Nucleated Red Blood Cells % 0 %; Platelet Count 210 10^3/cmm (157-399); Red Blood Count 3.68 10^6/uL (3.85-5.65); Red Cell Distribution Width 13.4 % (12.1-15.1); White Blood Count 7.65 10^3/uL (3.29-11.43)
[2024-06-12 05:46] LABS: Alanine Aminotransferase 13 U/L (0-33); Albumin Level 3.6 g/dL (3.5-5.2); Alkaline Phosphatase 92 U/L (35-105); Aspartate Amino Transferase 22 U/L (0-32); Blood Urea Nitrogen 28 mg/dL (8-23); Calcium 8.5 mg/dL (8.5-10.5); Carbon Dioxide 23 mmol/L (22-29); Chloride 107 mmol/L (98-107); Creatinine Clr Calc Pharmacy 28.8542; Globulin 3.3 g/dL (1.3-4.6); Glucose 156 mg/dL (65-115); Osmolality Calculated 301 mOsm/kg (285-295); Sodium 141 mmol/L (136-145); Total Bilirubin 1.7 mg/dL (0.15-1.2); Total Protein 6.9 g/dL (6.6-8.7)
[2024-06-12] MEDS: ipratropium 0.5 mg/2.5 mL Neb INHALATION ×3 (07:42→20:30)
[2024-06-12] MEDS: levalbuterol 0.63 mg/3 mL Neb INHALATION ×3 (07:42→20:29)
[2024-06-12] MEDS: budesonide 0.5 mg/2 mL Neb INHALATION ×2 (07:42→20:30)
[2024-06-12] MEDS: levothyroxine 50 mcg Tablet PO (08:38)
[2024-06-12] MEDS: amlodipine 10 mg Tablet PO (08:38)
[2024-06-12] MEDS: docusate sodium 100 mg Capsule PO ×2 (08:38→17:51)
[2024-06-12] MEDS: levothyroxine 112 mcg Tablet PO (08:38)
[2024-06-12] MEDS: cyanocobalamin 1,000 mcg/mL SDV 1000 MCG IM (08:39)
[2024-06-12] MEDS: carvedilol 6.25 mg Tablet PO ×2 (08:40→17:51)
--- NOTE | 2024-06-12 13:51 | PC.OT ---
PATIENT SLEEPING SOUNDLY AND NOT AWAKENED FOR TREATMENT. UE HEP FOR PATIENT AND HELPER GIVEN TO FAMILY ([place] AND [place]). EXERCISES EXPLAINED AND FAMILY VOICES UNDERSTANDING. THERAPIST ASKS FAMILY IF THEY HAVE ANY QUESTIONS ABOUT CARING FOR PATIENT'S DAILY NEEDS AT HOME; THEY VOICE NO CONCERNS AT THIS TIME.
[2024-06-12] MEDS: hyDRALAzine 10 mg Tablet PO ×2 (14:53→20:24)
--- NOTE | 2024-06-12 17:18 | P.PN_ITS ---
Subjective 2 Subjective: - Patient was seen this morning, patient 's family members at bedside, I also spoke to patient's grand daughter over the phone, during my examination - Use family members that information analyst - She had a good night, she is able to s leep, she has pulled on the right Rhino Rocket, its come out about a centimeter, I have recommended for her to not pull on it, as there is a high risk of rebleeding, most of the bleeding has crusted over, she denies any headache, blurry vision, no nausea, no vomiting, no blurry vision, but does complain of pain associate with both Rhino Rocket's being in place - I discussed with her that if she were to accidentally remove the Rhino Rocket, there is a high likelihood she would rebleed and I would then to put the Rhino Rocket back in, the morbidity mortality associated - I did also offer to the family transfe rring to tertiary level center such as [facility] or [facility] for ENT evaluation more urgently but most of the bleeding has stopped but as the Rhino Rocket continues to bother her educators to pull on it I am worried about her risk of rebleeding however family does not want her to be transferred, they understand risk and benefits, they voiced understanding, all questions answered - Discussed that my goal for today is to have Leah walk around the ICU, she is will sit up in a chair will have her work with speech therapy and will watch her closely, she is in agreement we will get her blood pressure under control more today, continue IV antibiotics for her UTI and pneumonia - We also discussed possibly discharging her tomorrow based upon how she does today family is in agreement - We discussed the risk and benefits of holding all anticoagulant therapy, aspirin, after discussing risk benefits, she voiced understanding, questions answered, agreed to proceed -We discussed possibly trying aspirin to genoveva but will watch her closely today - Will hopefully have her follow-up with ENT as outpatient early next week - But the Rhino Rocket will likely have to stay in place until then potentially up to 2 weeks - Later in the afternoon, I had seen aaliyah greene again, nursing staff tells me that she was walking around the ICU with help of nursing staff, she sat up in a chair, she had her lunch, - Again in the afternoon nursing staff t ell me that she is much more alert awake, answering all questions appropriately, family feels that she is getting back to her normal self - On examination in the morning I did do neurologic testing, she has good left upper and left lower extremity strength, diminished compared to the right but I would states about 4 out of 5, no facial droop, it is hard to discern any slurring of her words as she is [place]-speaking but family does not discern any slurring of her words Vitals/I&O/Wt Last Vital Signs Temp 99.6 F 06/12/24 13:00 Pulse 77 06/12/24 13:15 Resp 16 06/12/24 13:15 BP 147/88 06/12/24 13:00 Pulse Ox 96 06/12/24 13:15 O2 Del Method Room Air 06/12/24 13:15 O2 Flow Rate 3 06/10/24 19:42 06/12/24 06/12/24 06/12/24 06:59 14:59 22:59 Intake Total 300 / 300 Output Total 650 / 650 Balance -650 / 922.837 300 / 300 Weight last 48 hrs Weight 67 kg Weight 68.5 kg Physical Exam 2 Const: COMMON NORMALS: no acute distress ORIENTATION/CONSCIOUSNESS: Yes awake, Yes oriented to person and Yes oriented to place; not oriented to time HENMT: OTHER: Bilateral Rhino Rocket in place, no significant bleeding, most has crusted over Resp: COMMON NORMALS: normal respiratory effort, No retractions, No use of accessory muscles and clear to auscultation bilaterally AUSCULTATION: clear to auscultation bilaterally Cardio: COMMON NORMALS: regular rate, regular rhythm, S1 normal heart sound present and S2 normal heart sound present RATE: regular rate RHYTHM: r egular rhythm HEART SOUNDS: S1 normal heart sound present and S2 normal heart sound present GI: COMMON NORMALS: Normal to inspection, nondistended, normoactive bowel sounds present and non-tender Extremity: COMMON NORMALS: no pedal edema Neuro: SENSORIUM/ORIENTATION: Yes oriented to person, Yes oriented to place and No oriented to time Urinary Catheter Management: Evans: Cath Placed During This Visit: yes Reason for Continuing Indwelling Catheter: Accurate Measurement of Urinary Output in Critically Ill Patients Urinary Catheter Date of Insertion: 06/08/24 Data 06/12/24 05:05 06/12/24 05:05 Micro: Microbiology 06/10/24 10:34 Urine Culture - Final Urine,Clean Catch Escherichia coli A&P Assessment and plan (1) Acute right MCA stroke: CT/CT head thrombolytic [id number] IMPRESSION: There is a hypodense area along the right insular ribbon and in the subcortical right frontal region adjacent to the right frontal horn of unknown acuity, new when compared to prior CT of the head dated 01/07/2021. Consider MRI of the brain for further evaluation. CT/CT angio headneck* [id number] IMPRESSION: 1. Poor opacification of the superior M2 branch of the right MCA, concerning for reduced flow or evolving distal branch occlusion. Follow-up imaging with MRI brain is recommended. 2. Hypodensity involving the right insular ribbon and adjacent subcortical right frontal lobe, concerning for evolving ischemia in the right middle cerebral artery (MCA) territory. IMPRESSION: 1. No large vessel occlusion. 2. 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 cardiac echo Normal left ventricular size and systolic function, EF 65%.moderate left ventricular hypertrophy. No regional wall motion abnormalities. Grade I/IV diastolic dysfunction (abnormal relaxation filling pattern), normal to mildly elevated filling pressures. Moderately increased right atrial size. Severely increased left atrial volume 46 ml/m squared. Moderate mitral annular calcification. Mild mitral valve regurgitation. Aortic valve sclerosis. Moderate aortic valve calcification. Mild aortic valve regurgitation. Mild tricuspid valve regurgitation. Severe pulmonary hypertension with an estimated pulmonary artery peak systolic pressure of 76 mmHg. Mild pulmonary valve regurgitation. There is no pericardial effusion. There are no intracardiac masses. Compared to the study from 11/08/2020, there is a wall development of severe pulmonary hypertension Plan -Not a candidate for tenecteplase -Currently being medically managed - Completed permissive hypertension, resume blood pressure medications in a graduated fashion -IV hydralazine as needed -Aspirin on hold, statin -Xarelto currently on hold, therapeutic Lovenox on hold, CT head no acute findings Check A1c 5.7, - PT/OT/speech evaluation. (2) Fall: Monitor (3) Confusion: - Likely secondary urinary tract infection, currently on Zosyn (4) Uncontrolled hypertension: Resume blood pressure medications (5) Atrial fibrillation: Monitor heart rate Currently off anticoagulant therapy (6) TOM (acute kidney injury): IV fluids (7) Left-sided epistaxis: (8) Epistaxis: - Bilateral nares epistaxis -Status post bilateral Rhino Rocket placement - Left Rhino Rocket injected, roughly 3 cc of normal saline - Right Rhino Rocket injected roughly 6 cc of normal saline - Will keep them in for now - Likely keep in for 2 weeks - Will continue to hold anticoagulant therapy, discussed risk benefits, patient and family voiced understanding, all questions answered Plan Urinary tract infection, continue Zosyn Possible aspiration, with epistaxis, continue Zosyn, aspiration precautions Encephalopathy episodes, likely second to UTI, continue Zosyn CODE STATUS: Discussed in detail with patient's daughter and granddaughter at bedside. DNR/DNI dysphagia level 4 diet, moderately thickened Full dose Lovenox will be sufficient for DVT prophylaxis currently on hold due to concern for epistaxis, SCDs for now Protonix for PUD prophylaxis. PDMP PDMP Reviewed: Not Reviewed Attestations 2 Medical Necessity Statement*: Patient requires hospitalization for CVA, UTI, epistaxis, aspiration pneumonia Diagnoses Acute right MCA stroke I63.511 Fall W19.XXXA Confusion R41.0 Uncontrolled hypertension I10 Atrial fibrillation I48.91 TOM (acute kidney injury) N17.9 Left-sided epistaxis R04.0 Epistaxis R04.0
--- NOTE | 2024-06-12 18:38 | PC.NURSE ---
Pt sat up in chair for approx. 2 hours around lunch.. after she ambulated with PT. She tolerated well
[2024-06-12] MEDS: atorvastatin 40 mg Tablet 80 MG PO (20:24)
[2024-06-13] VITALS (20 sets, daily range): BP systolic 116–145; BP diastolic 61–92; PULSE 68–83; RESP 16–21; TEMP 37; O2SAT 90–98
[2024-06-13] MEDS: piperacillin-tazobactam 3.375 GM in sodium chloride 0.9% (plus) 50 ML IV ×2 (02:19→10:53)
[2024-06-13] MEDS: hyDRALAzine 10 mg Tablet PO ×2 (02:35→08:09)
[2024-06-13] MEDS: pantoprazole 40 mg SDV IVP (04:50)
[2024-06-13 05:18] LABS: Basophils % 0.3 %; Eosinophils # 0.1 10^3/uL (0.0-0.8); Eosinophils % 1.3 %; Hematocrit 34.7 % (36-47); Lymphocytes # 0.9 10^3/uL (0.8-4.8); Lymphocytes % 11.5 %; Mean Corpuscular HGB Conc 32.6 g/dL (30-55); Mean Corpuscular Hemoglobin 32.7 pg (27-33); Mean Corpuscular Volume 100.3 fl (85-98); Mean Platelet Volume 10.4 fL (7.4-10.4); Monocytes # 0.8 10^3/uL (0.2-0.9); Monocytes % 9.7 %; Neutrophils # 6.09 10^3/uL (1.8-7.7); Neutrophils % 76.8 %; Nucleated Red Blood Cells % 0 %; Platelet Count 188 10^3/cmm (157-399); Red Blood Count 3.46 10^6/uL (3.85-5.65); Red Cell Distribution Width 13.8 % (12.1-15.1); White Blood Count 7.92 10^3/uL (3.29-11.43)
[2024-06-13 05:33] LABS: Alanine Aminotransferase 10 U/L (0-33); Albumin Level 3.2 g/dL (3.5-5.2); Alkaline Phosphatase 78 U/L (35-105); Anion Gap 12.5 (5-19); Aspartate Amino Transferase 16 U/L (0-32); Blood Urea Nitrogen 27 mg/dL (8-23); Calcium 8.3 mg/dL (8.5-10.5); Carbon Dioxide 26 mmol/L (22-29); Chloride 106 mmol/L (98-107); Creatinine Clr Calc Pharmacy 26.8843; Globulin 3.1 g/dL (1.3-4.6); Glucose 139 mg/dL (65-115); Osmolality Calculated 299 mOsm/kg (285-295); Potassium 3.5 mmol/L (3.5-5.1); Sodium 141 mmol/L (136-145); Total Bilirubin 1.5 mg/dL (0.15-1.2); Total Protein 6.3 g/dL (6.6-8.7)
[2024-06-13] MEDS: docusate sodium 100 mg Capsule PO (08:09)
[2024-06-13] MEDS: carvedilol 6.25 mg Tablet PO (08:09)
[2024-06-13] MEDS: levothyroxine 112 mcg Tablet PO (08:09)
[2024-06-13] MEDS: cyanocobalamin 1,000 mcg/mL SDV 1000 MCG IM (08:09)
[2024-06-13] MEDS: levothyroxine 50 mcg Tablet PO (08:09)
[2024-06-13] MEDS: amlodipine 10 mg Tablet PO (08:09)
--- NOTE | 2024-06-13 11:13 | CT_ITS ---
WS: [id number] CT HEAD TECHNIQUE: Noncontrast CT of the head obtained from the skullbase to the vertex. CLINICAL INFORMATION: cva, nasal pain rhinorocket placed for nose bleed COMPARISON: 06/10/2024 DLP: 1670.[address] scans at [facility] use at least one of these dose optimization techniques: automated exposure control; mA and/or kV adjustment per patient size (includes targeted exams where dose is matched to clinical indication); or iterative reconstruction. FINDINGS: No evidence of intracranial hemorrhage or mass effect. Ventricular system and basal cisterns are patent. Moderate small vessel changes. Moderate parenchymal volume loss. Vascular calcification. Fluid and blood products in the paranasal sinuses. Partially visualized nasal pledgets. Soft tissue edema anterior facial bones. Mastoid air cells are well aerated. CT/CT head wo con* [id number] IMPRESSION: 1. No evidence of intracranial hemorrhage or mass effect. 2. No acute intracranial findings.
--- NOTE | 2024-06-13 11:13 | CT_ITS ---
WS: [id number] CT FACIAL BONES TECHNIQUE: Noncontrast facial bones with coronal and sagittal reformatted images. CLINICAL INFORMATION: nasal bleed, rhinorocket placed for bleed COMPARISON: None. DLP: 1670.[address] scans at [facility] use at least one of these dose optimization techniques: automated exposure control; mA and/or kV adjustment per patient size (includes targeted exams where dose is matched to clinical indication); or iterative reconstruction. FINDINGS: Soft tissue edema anterior nasal and facial soft tissues. Nasal pledgets. Fluid and blood products in the nasal turbinates and nasal vault. Small amount of high attenuation blood products visualized bilaterally. Fluid and blood products in the ethmoid air cells and RIGHT greater than LEFT maxillary sinus. Normal pterygoid plates. Mild S-shaped nasal septal deviation. No other acute findings. CT/CT facial bones wo con* [id number] IMPRESSION: 1. Bilateral nasal pledgets with fluid and blood products in the nasal turbina damien bilaterally. 2. Small amount of high attenuation blood products in the nasal turbinates eth moid air cells and RIGHT greater than LEFT maxillary sinuses. 3. Soft tissue edema overlying the nasal bones. No other changes from previous .
[2024-06-13] MEDS: levalbuterol 0.63 mg/3 mL Neb INHALATION (13:16)
[2024-06-13] MEDS: ipratropium 0.5 mg/2.5 mL Neb INHALATION (13:16)
--- NOTE | 2024-06-13 14:27 | PM.DCS ---
Discharge Providers Date of Admission: 06/08/24 13:02 Date of Discharge: June 13, 2024 Attending Provider at Admission: Roman Bishop MD Attending Provider at Discharge: Abelardo Davison MD Primary Care Provider: Torey Cade MD Diagnoses at Discharge Discharge Diagnosis (1) Acute right MCA stroke: Status: Acute (2) Fall: Status: Acute (3) Confusion: Status: Acute (4) Uncontrolled hypertension: Status: Acute (5) Atrial fibrillation: Status: Acute (6) TOM (acute kidney injury): Status: Acute (7) Left-sided epistaxis: Status: Acute (8) Epistaxis: Status: Acute Reason for Visit Reason for Visit: nose lac s/p fall Hospital Course Hospital Course This is a 88-year-old female with a past medical history of hypertension, atrial fibrillation on Xarelto, hypothyroidism who presents [facility] due to concerns for fall, nosebleed, confusion weakness along the left side of her body Patient presented to [facility] for left-sided weakness, out of tPA window, CTA head and neck shows M2 branch of right MCA concerning for reduced flow or evolving distal branch occlusion with concern for right MCA territory stroke, case was discussed with [facility] neurology who recommended medical management, not a candidate for tenecteplase,, was medically managed as inpatient, with statin, permissive hypertension, initially aspirin, after 48 hours, her she was resumed on therapeutic Lovenox(instead of Xarelto due to concerns for bleeding/hemorrhagic conversion), overall patient's condition improved, seen by speech therapy, physical therapy. - In terms of her concerns for dysphagia, she was seen by speech therapy, overall clinically improved, she will be discharged on a dysphagia level 4 diet, moderately thickened liquids - Had a detailed discussion with patient and her family, about keeping patient on moderately thickened liquids, discussed aspiration risk, morbidity mortality associated, they voiced understanding, all questions answered, agreed to proceed, will have her follow-up with speech therapy as outpatient - For patient's left-sided weakness, significantly improved, on discharge very mild left upper extremity weakness, very mild left lower extremity weakness, she is able to ambulate, she is able to ambulate in the ICU, she denies any significant weakness on the left side on discharge; I had a detailed discussion with the patient and family about her fall risk, I have recommended for her to go to long-term facility for rehab, however patient and family have declined, she will be discharged home to the care of her family - For her hypertension, she required titration of her blood pressure medications discharged on Coreg 6.25 twice daily, clonidine patch, hydralazine 10 mg p.o. every 6 hours, - For hyperlipidemia discharged on statin - For her aspirin, we will have her start her aspirin on 06/15/2024, due to concerns for worsening nosebleed - In terms of her anticoagulant therapy Xarelto, Xarelto will be held until she sees ENT on Sunday, due to concerns for recurrent epistaxis, and she follows up with neurology Dr. Mohan next week thereafter -Please follow-up with primary care provider next week, patient has sutures in place which will need to be removed Patient is hospitalization was complicated by UTI, requiring IV antibiotics, discharged on p.o. antibiotics Patient's hospitalization was complicated by epistaxis - On admission she had left-sided epistaxis, she had a Rhino Rocket in place, and laceration of left nare requiring sutures, and silver nitrate, and packing of anterior nares with pledget and TXA - On 06/10/2024 after Lovenox had been resumed, the evening patient had a significant episode of epistaxis, resulting in significant blood loss, episodes of hematemesis - Initially there was concerns patient's hematemesis was a GI bleed but it was more likely coming from her significant epistaxis - Patient had bilateral Rhino Rocket's placed 06/10/2024, moved to the ICU - She was monitored over the next few days, hemoglobin has remained stable, hemodynamics remained stable - Patient had the tendency to pull on her right Rhino Rocket, she pulled it out about a centimeter - I had a detailed discussion with patient and family about her not removing Rhino Rocket, as it was tamponade her bleeding - Her left nares, most of the bleeding has stopped, she has formed blood/crusting over that location - The right naris at times sometimes has clots that are new that have developed, they look fresh, but they were likely are developing as patient is pulling on her right Rhino Rocket - Nonetheless on discharge most of the right Rhino Rocket has crusted over, I do not see any active bleeding - I spoke to Dr. LISA LL, spoke to him about the situation detail he recommended keeping the Rhino Rocket in place, and having patient follow-up on Sunday to his office - Patient's family were upset about the Rhino Rocket being in place, they feel that it should come out, before she is being discharged as she is uncomfortable with it - I discussed with him extensively that typically after 72 hours Rhino Rocket's are removed, and she is approaching 72 hours - However she has had a life-threatening epistaxis and bleed on Lovenox, this is a second episode, and right now the Rhino Rocket is tamponading the blood vessels that have blood, removal carries a high likelihood of rebleeding and morbidity and mortality associated -Certainly we could attempt to remove right Rhino Rocket here but without ENT coverage, what could happen is is that she could have another life-threatening bleed that would require me to put the Rhino Rocket back in, potentially might require intubation, might have significant morbidity and mortality, acute blood loss anemia, might require urgent transfer -And as she is currently hemodynamically stable, hemoglobin stable, and most of the bleeding with however pulling on it has crusted over, I am in favor of keeping them in until she follows up with Dr. Conway, and this is what Dr. Conway has advised me of - Certainly this is a difficult situation, I understands her and her family's concerns, concerns for infections, but she has been stable so far, her hemoglobin stable, hemodynamic stable, afebrile, I have her on antibiotics and most of the bleeding out of the right naris has crusted over but as she continues to try to pull on it at times I can see some small clots develop over a few hours. Nonetheless, this has me worried that if it is indeed removed too soon, removed by the patient, she has a high risk of the rebleeding, and everything being undone as it the blood vessels are currently being tamponaded currently, and morbidity and mortality associated. Currently she is not vomiting up any blood, she is not coughing up any blood. I have also observed her posterior pharynx, I cannot see any fresh or dried blood in her posterior pharynx. I have reinforced this with the patient, her family, her daughters over the phone multiple times. However they remained upset, unfortunately I do not have ENT coverage here in the hospital, thus I called [facility] for a second opinion -I also did a CT of the facial bone 1. Bilateral nasal pledgets with fluid and blood products in the nasal turbinates bilaterally. 2. Small amount of high attenuation blood products in the nasal turbinates ethmoid air cells and RIGHT greater than LEFT maxillary sinuses. 3. Soft tissue edema overlying the nasal bones. No other changes from previous. - I spoke to [facility], spoke to their physician, who advised me to keep the bilateral Rhino Rocket in place, it can be kept in place for at least 5 to 7 days, and until she is seen by ENT, recommended against removing it, recommended p.o. antibiotics - I relayed this information to the patient and family, they have agreed, we will discharge her with the Rhino Rocket in place bilaterally, discharged on p.o. antibiotics, with a follow-up with Dr. Conway on Sunday for 06/15/2024, if Rhino Rocket is removed she should immediately come back to the emergency room In terms of anticoagulant therapy, her Xarelto, Xarelto will have to be held until she is first seen by ENT. Once ENT deems that it is safe to resume her Xarelto, then I would have her follow-up with neurology to determine when and if anticoagulant therapy should be resumed. - I have had detailed discussion with the family about the risks and benefits of holding anticoagulant therapy, they understand her increased risk of strokes without being on Xarelto, especially that she has had a stroke, they understand morbidity and mortality associated, they voiced understanding, all questions answered, shared decision making, patient and family agrees to proceed with holding Xarelto Her fall she has multiple bruising, over the right face, multiple other superficial hematomas, she is ambulating without any significant pain, all imaging does not show any significant fracture Physical Exam Const: COMMON NORMALS: no acute distress and patient oriented x3 HENMT: OTHER: Bilateral Rhino Rocket's in place No significant bleeding Pupils equal round reactive to light Eye: COMMON NORMALS: Equal, round and reactive pupils present and EOMs intact bilaterally PUPIL: Yes Equal, round and reactive pupils present Resp: COMMON NORMALS: normal respiratory effort, No retractions, No use of accessory muscles and clear to auscultation bilaterally AUSCULTATION: clear to auscultation bilaterally Cardio: COMMON NORMALS: regular rate, regular rhythm, S1 normal heart sound present and S2 normal heart sound present RATE: regular rate RHYTHM: regular rhythm HEART SOUNDS: S1 normal heart sound present and S2 normal heart sound present GI: COMMON NORMALS: Normal to inspection, nondistended, normoactive bowel sounds present and non-tender Extremity: COMMON NORMALS: no pedal edema Neuro: COMMON NORMALS: patient oriented x3, CN's II-XII intact bilaterally, moves all extremities and no focal motor deficits Psych: COMMON NORMALS: mental status grossly normal Urinary Catheter Management: Evans: Cath Placed During This Visit: yes Reason for Continuing Indwelling Catheter: Accurate Measurement of Urinary Output in Critically Ill Patients Urinary Catheter Date of Insertion: 06/08/24 Discharge Data Studies Completed and Pending Completed Studies During Hospitalization Category Date Time Status CT angio headneck* [id number] Stat Cat Scan 06/08/24 11:[address] cervical spin wo con* [id number] Stat Cat Scan 06/08/24 11:[address] chest wo con [id number] Stat Cat Scan 06/08/24 15:[address] facial bones wo con* [id number] Stat Cat Scan 06/08/24 11:[address] facial bones wo con* [id number] Stat Cat Scan 06/13/24 11:[address] head thrombolytic [id number] Stat Cat Scan 06/08/24 11:[address] head wo con* [id number] Routine Cat Scan 06/09/24 15:[address] head wo con* [id number] Routine Cat Scan 06/13/24 11:[address] head wo con* 53314 Stat Cat Scan 06/10/24 14:10 Completed XR chest 1V portable [id number] Stat Exams 06/08/24 11:16 Completed XR pelvis 1-2V* [id number] Stat Exams 06/08/24 11:26 Completed XR tibia fibula LT 2V [id number] Stat Exams 06/08/24 13:10 Completed CV. echo complete* [id number] Routine Ultrasound 06/08/24 16:06 Completed Pending at discharge Category Date Time Status Complete Blood Count w/Auto AM LABS Lab 06/14/24 04:00 Ordered Comprehensive Metabolic Panel AM LABS Lab 06/14/24 04:00 Ordered Radiology Impressions Chest X-Ray 06/08/24 11:16 IMPRESSION: No acute findings. Head/Neck CTA 06/08/24 11:16 IMPRESSION: 1. Poor opacification of the superior M2 branch of the right MCA, concerning for reduced flow or evolving distal branch occlusion. Follow-up imaging with MRI brain is recommended. 2. Hypodensity involving the right insular ribbon and adjacent subcortical right frontal lobe, concerning for evolving ischemia in the right middle cerebral artery (MCA) territory. IMPRESSION: 1. No large vessel occlusion. 2. 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 REFERENCES: NASCET CRITERIA. The degree of stenosis in the cervical segment of the internal carotid artery is based on NASCET criteria. Normal is no stenosis. Mild is less than 50% stenosis. Moderate is 50-69% stenosis. Severe is 70% to 99% stenosis. Total occlusion is no detectable patent lumen. ADDENDUM: 06/08/24 1241 THIS REPORT CONTAINS FINDINGS THAT MAY BE CRITICAL TO PATIENT CARE. The findings were verbally communicated via telephone conference with CLIFTON Nobles at 12:40 PM CDT on 06/08/2024. The findings were acknowledged and understood. Cervical Spine CT 06/08/24 11:26 IMPRESSION: No acute findings. Pelvis X-Ray 06/08/24 11:26 IMPRESSION: No acute fracture Tibia/Fibula X-Ray 06/08/24 13:10 IMPRESSION: 1. 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 2. Vascular calcifications. 3. No acute fracture. Chest CT 06/08/24 15:06 IMPRESSION: 1. Cardiomegaly with a dilated main pulmonary artery measuring 37 mm, which may be associated with pulmonary arterial hypertension. 2. Trace bilateral pleural effusions. 3. Mildly displaced fracture of the lateral right 3rd rib and nondisplaced fracture of the lateral right 2nd rib. Face CT 06/13/24 11:13 IMPRESSION: 1. Bilateral nasal pledgets with fluid and blood products in the nasal turbinates bilaterally. 2. Small amount of high attenuation blood products in the nasal turbinates ethmoid air cells and RIGHT greater than LEFT maxillary sinuses. 3. Soft tissue edema overlying the nasal bones. No other changes from previous. Head CT 06/13/24 11:13 IMPRESSION: 1. No evidence of intracranial hemorrhage or mass effect. 2. No acute intracranial findings. Laboratory Results WBC 7.92 10^3/uL (3.29-11.43) 06/13/24 04:11 RBC 3.46 10^6/uL (3.85-5.65) L 06/13/24 04:11 Hgb 11.30 g/dL (11.27-16.99) 06/13/24 04:11 Hct 34.7 % (36-47) L 06/13/24 04:11 MCV 100.3 fl (85-98) H 06/13/24 04:11 MCH 32.7 pg (27-33) 06/13/24 04:11 MCHC 32.6 g/dL (30-55) 06/13/24 04:11 RDW 13.8 % (12.1-15.1) 06/13/24 04:11 Plt Count 188 10^3/cmm (157-399) 06/13/24 04:11 MPV 10.4 fL (7.4-10.4) 06/13/24 04:11 Neut % (Auto) 76.8 % 06/13/24 04:11 Lymph % (Auto) 11.5 % 06/13/24 04:11 Potter % (Auto) 9.7 % 06/13/24 04:11 Eos % (Auto) 1.3 % 06/13/24 04:11 Baso % (Auto) 0.3 % 06/13/24 04:11 Neut # (Auto) 6.09 10^3/uL (1.8-7.7) 06/13/24 04:11 Lymph # (Auto) 0.9 10^3/uL (0.8-4.8) 06/13/24 04:11 Potter # (Auto) 0.8 10^3/uL (0.2-0.9) 06/13/24 04:11 Eos # (Auto) 0.1 10^3/uL (0.0-0.8) 06/13/24 04:11 Baso # (Auto) 0.0 10^3/uL (0.0-0.1) 06/13/24 04:11 Nucleated RBC % (auto) 0 % 06/13/24 04:11 Nucleated RBCs # 0.0 /100WBC 06/13/24 04:11 PT 15.20 SECONDS (12.1-14.9) H 06/10/24 13:52 INR 1.12 (0.8-1.2) 06/10/24 13:52 APTT 29.2 SECONDS (23.9-36.7) 06/08/24 11:28 Sodium 141 mmol/L (136-145) 06/13/24 04:11 Potassium 3.5 mmol/L (3.5-5.1) 06/13/24 04:11 Chloride 106 mmol/L (98-107) 06/13/24 04:11 Carbon Dioxide 26 mmol/L (22-29) 06/13/24 04:11 Anion Gap 12.5 (5-19) 06/13/24 04:11 BUN 27 mg/dL (8-23) H 06/13/24 04:11 Creatinine 1.4 mg/dL (0.5-0.9) H 06/13/24 04:11 GFR Calculation Not Reportable 06/13/24 04:11 Glucose 139 mg/dL (65-115) H 06/13/24 04:11 Estimat Average Glucose 117 06/08/24 11:28 Hemoglobin A1c 5.7 % (4.0-6.0) 06/08/24 11:28 Calculated Osmolality 299 mOsm/kg (285-295) H 06/13/24 04:11 Lactic Acid 1.7 mmol/L (0.5-2.2) 06/08/24 11:28 Calcium 8.3 mg/dL (8.5-10.5) L 06/13/24 04:11 Phosphorus 2.9 mg/dL (2.5-4.5) 06/11/24 04:30 Magnesium 1.9 mg/dL (1.7-2.3) 06/11/24 04:30 Iron 114 ug/dL (37-145) 06/08/24 11:28 TIBC 158 mcg/dl 06/08/24 11:28 % Saturation 72.1 % (20-50) H 06/08/24 11:28 Unsat Iron Binding 44 ug/dL (112-347) L 06/08/24 11:28 Total Bilirubin 1.5 mg/dL (0.15-1.2) H 06/13/24 04:11 AST 16 U/L (0-32) 06/13/24 04:11 ALT 10 U/L (0-33) 06/13/24 04:11 Alkaline Phosphatase 78 U/L (35-105) 06/13/24 04:11 Total Protein 6.3 g/dL (6.6-8.7) L 06/13/24 04:11 Albumin 3.2 g/dL (3.5-5.2) L 06/13/24 04:11 Globulin 3.1 g/dL (1.3-4.6) 06/13/24 04:11 Triglycerides 96 mg/dL (0-150) 06/09/24 05:00 Triglycerides Cancelled 06/09/24 05:00 Cholesterol 175 mg/dL (0-200) 06/09/24 05:00 Cholesterol Cancelled 06/09/24 05:00 LDL Cholesterol, Calc 112 mg/dL (50-129) 06/09/24 05:00 LDL Cholesterol, Calc Cancelled 06/09/24 05:00 HDL Cholesterol 44 mg/dL (60-100) L 06/09/24 05:00 HDL Cholesterol Cancelled 06/09/24 05:00 LDL/HDL Ratio 2.55 RATIO (0.00-3.22) 06/09/24 05:00 LDL/HDL Ratio Cancelled 06/09/24 05:00 Cholesterol/HDL Ratio 3.98 mg/dL (0.0-4.40) 06/09/24 05:00 Cholesterol/HDL Ratio Cancelled 06/09/24 05:00 Vitamin B12 224 pg/mL (232-1245) L 06/08/24 11:28 Folate 11.6 ng/mL (4.8-37.3) 06/09/24 05:00 Procalcitonin 0.08 ng/mL (0-0.5) 06/09/24 05:00 Procalcitonin Cancelled 06/09/24 05:00 TSH 3.47 uIU/mL (0.27-4.20) 06/08/24 11:28 Urine Color [place] (Yellow) A 06/10/24 10:34 Urine Appearance Cloudy (CLEAR) A 06/10/24 10:34 Urine pH 5.5 (5-7) 06/10/24 10:34 Ur Specific [place] 1.021 (1.005-1.030) 06/10/24 10:34 Urine Protein 1+ (Negative) A 06/10/24 10:34 Urine Glucose (UA) Negative (Normal) 06/10/24 10:34 Urine Ketones Trace (Negative) 06/10/24 10:34 Urine Blood 3+ (Negative) A 06/10/24 10:34 Urine Nitrate Negative (Negative) 06/10/24 10:34 Urine Bilirubin 1+ (Negative) H 06/10/24 10:34 Urine Urobilinogen 2.0 mg/dL (Negative) H 06/10/24 10:34 Ur Leukocyte Esterase 2+ (Negative) A 06/10/24 10:34 Urine RBC >100 /hpf (0-2) H 06/10/24 10:34 Urine WBC 11-20 /hpf (0-5) H 06/10/24 10:34 Ur Squamous Epith Cells 11-20 /hpf (0-5) H 06/10/24 10:34 Amorphous Sediment Not Reportable 06/10/24 10:34 Urine Bacteria None seen /hpf (NONE) 06/10/24 10:34 Hyaline Casts 7.42 /lpf 06/10/24 10:34 Vitals Last Vital Signs Temp 98.6 F 06/13/24 06:13 Pulse 75 06/13/24 13:21 Resp 16 06/13/24 13:17 BP 116/65 06/13/24 11:03 Pulse Ox 93 06/13/24 13:17 O2 Del Method Room Air 06/13/24 13:17 O2 Flow Rate 3 06/10/24 19:42 Discharge Plan Discharge Patient Disposition: Home Condition: Stable Prescriptions: New hydralazine 10 mg Tablet 10 mg PO Q6H 30 Days Qty: 120 0RF clonidine 0.2 mg/24 hr Patch Weekly 1 patch transdermal Q7D 30 Days Qty: 4 0RF amlodipine 10 mg Tablet 10 mg PO DAILY 30 Days Qty: 30 0RF doxycycline hyclate 100 mg tablet 100 mg PO BID 7 Days Qty: 14 0RF cefdinir 300 mg capsule 300 mg PO BID 7 Days Qty: 14 0RF Thick and Easy Powder 1 ea PO TIDWMEAL Qty: 2724 0RF aspirin 81 mg capsule 81 mg PO DAILY 30 Days Qty: 30 0RF Rx Instructions: start 06/15/2024 cyanocobalamin (vitamin B-12) 1,000 mcg tablet extended release 1,000 mcg PO DAILY 30 Days Qty: 30 0RF Continued docusate sodium [Colace] 100 mg capsule 100 mg PO DAILY Toviaz 4 mg tablet extended release 24 hr 4 mg PO DAILY pantoprazole 40 mg tablet,delayed release (DR/EC) 40 mg PO BEDTIME levothyroxine 112 mcg capsule 112 mcg PO DAILY Rx Instructions: along with 50mcg [id number] total rosuvastatin [Crestor] 40 mg tablet 40 mg PO BEDTIME levothyroxine 50 mcg tablet 50 mcg PO DAILY Rx Instructions: along with 112mcg [id number] total albuterol sulfate [Ventolin HFA] 90 mcg/actuation HFA aerosol inhaler 2 puff INHALATION Q4H PRN (Reason: Wheezing) carvedilol [Coreg] 6.25 mg tablet 6.25 mg PO BID 30 Days Qty: 60 3RF Rx Instructions: must administer with a meal/food calcium carbonate 600 mg calcium (1,500 mg) tablet 600 mg PO DAILY 30 Days Qty: 30 0RF ezetimibe 10 mg tablet 10 mg PO DAILY Discontinued aspirin 325 mg tablet 325 mg PO DAILY valsartan-hydrochlorothiazide 320-25 mg tablet 1 tab PO DAILY Xarelto 20 mg tablet 20 mg PO QPM isosorbide mononitrate 120 mg tablet extended release 24 hr 120 mg PO DAILY Discharge Orders: Discharge Order (Routine); Ordered 06/13/24 Ordered By: Abelardo Davison Other Ambulatory Orders: Speech Language Pathology Eval and Treat Outpatient (Order) Timeframe: 1 Day Facility: [facility] - Location: Speech Therapy [place] Ordered By: Abelardo Davison Referrals: Vicki Mohan MD [Physician] - 06/18/24 8:15 am (please keep this appointment /very important to keep this appointment , has scheduled this as a doctor to doctor referral appointment with .) Oliver Conway MD [Physician] - 06/16/24 1:00 pm () Torey Cade MD [Primary Care Provider] - (We have notified your physician's clinic of the need for a follow-up appointment to be scheduled. If you have not heard from them within the next 2 business days, please call them directly. please call Sunday to get this appointment please ) Discharge Diet: As Directed Discharge Activity: Resume usual activity Patient Instructions: Clonidine (By mouth) (Catapres, Kapvay, Kapvay Dose Pack), Doxycycline (By mouth) (Acticlate, Adoxa, Avidoxy, Monodox, Doryx), Aspirin (By mouth), Hydralazine (By mouth) (Apresoline), Amlodipine (By mouth), Cefdinir (By mouth) (Omnicef), A-fib (Atrial Fibrillation) (DC), Nasal Fracture (DC), Nosebleed (ED), How to Take a Blood Pressure Reading (DC), Fall Prevention for Older Adults (DC), Ischemic Stroke (DC), Self Care Measures After a Stroke (DC), Hypertensive Crisis (DC), Altered Mental Status (ED), Fall Prevention (DC), Level 1 National Dysphagia Diet (DC), Dysphagia (ED), Stroke (DC), Aspiration Precautions (DC), GI Post Discharge Instructions w/ Anesthesia, Opioid Safety, Stroke Stoplight Activity Restrictions/Additional Instructions: - Please keep in bilateral Rhino Rocket's until Sunday until you see Dr. Conway, you have an appointment at 1 PM on sunday - Please take antibiotics as prescribed - If any fevers, headaches, please go to the emergency room -if any recurrent stroke like symptoms 911 -aspiration precuations, dysphagia level 4 diet -please hold Xarelto until you see neurology - Resume aspirin 81 mg 06/15/2024 - If you develop any worsening nasal bleed please immediately go to the emergency room - For your stroke continue home physical therapy, follow dysphagia level diet, follow-up with outpatient speech therapy - Please continue dysphagia diet level 4, with moderate thickening - Please thicken all liquids - Thicken all meals - If any fevers, worsening shortness of breath please go to emergency room - You need to be seen by neurology in at least a 1 to 2 weeks, As once your nasal bleeding has been stopped, and it is cleared by ENT, we have to resume your Xarelto at some point, as you have an increased risk of strokes without Xarelto - Please follow-up with your primary care provider next week for removal of nasal sutures Discharge Attestations Time Spent in Discharge Care*: greater than 30 min Quality Metrics Clinical Quality Measures [ Cerebrovascular Accident { Contraindication to Antithrombotic: None; antithrombotic prescribed; Contraindication to Anticoagulation: Complication of medical care; Contraindication to Statin: None; Statin prescribed;}] Coding Level of Care Code Acute Code for Chg Fwd Diagnoses Acute right MCA stroke I63.511 Fall W19.XXXA Confusion R41.0 Uncontrolled hypertension I10 Atrial fibrillation I48.91 TOM (acute kidney injury) N17.9 Left-sided epistaxis R04.0 Epistaxis R04.0
--- NOTE | 2024-06-13 15:15 | PC.OT ---
OT treatment attempted with pt declining due to being discharged today; will attempt again at later time.
--- NOTE | 2024-06-13 16:58 | PC.NURSE ---
All medications given to patient at time of discharge. All discharge instructions and education gone over with patients son and granddaughter on the phone. They gave verbal understanding of medication changes and appointments.
== END 2024-06-13 16:45 | disposition home or self-care (01) | DRG 64 ==
LOC: ER 12:39 → ICU 13:47 → MEDSURG 06-09 20:56 → ICU 06-10 17:54
PROVIDERS: Admitting Provider Student in an Organized Health Care Education/Training Program; Emergency Provider Emergency Medicine; PCP Family Medicine; Visit Provider Family Medicine
DX: I63.511 Cerebral infarction due to unspecified occlusion or stenosis of right middle cerebral artery (principal); J69.0 Pneumonitis due to inhalation of food and vomit; G81.94 Hemiplegia, unspecified affecting left nondominant side; N17.9 Acute kidney failure, unspecified; N39.0 Urinary tract infection, site not specified; G93.49 Other encephalopathy; R13.10 Dysphagia, unspecified; R29.704 NIHSS score 4; I10 Essential (primary) hypertension; R04.0 Epistaxis; I48.91 Unspecified atrial fibrillation; E03.9 Hypothyroidism, unspecified; E78.5 Hyperlipidemia, unspecified; S01.21XA Laceration without foreign body of nose, initial encounter; W19.XXXA Unspecified fall, initial encounter; R09.02 Hypoxemia; Z79.01 Long term (current) use of anticoagulants; Z79.82 Long term (current) use of aspirin
CPT/HCPCS: 36415; 51702; 70450; 70486; 70496; 70498; 71045; 71250; 72125; 72170; 73590; 80053; 80061; 81001; 82274; 82607; 82746; 83036; 83540; 83550; 83605; 83735; 84100; 84145; 84443; 85014; 85018; 85025; 85610; 85730; 87077; 87086; 87186; 92507; 92523; 92526; 92610; 93005; 93306; 94640; 94664; 96361; 96372; 96374; 96375; 96376; 97110; 97116; 97161; 97167; 97530; 99285; J0360; J1650; J2060; J2270; J2354; J2470; J2543; J2765; J3420; J3490; J7030; J7614; J7626; J7644; J9999; Q3014

== ENCOUNTER → 2024-06-18 07:59 | Outpatient (BNVA) | payer MEDICAID, SELFPAY | PROVIDERS: PCP Family Medicine; Referring Provider Family Medicine; Visit Provider Specialist | DX: I63.511 Cerebral infarction due to unspecified occlusion or stenosis of right middle cerebral artery (principal) | CPT/HCPCS: 99205 ==

== ENCOUNTER 2024-06-27 14:27 | Emergency (ER) | payer MEDICAID, SELFPAY ==
[2024-06-27] VITALS (8 sets, daily range): BP systolic 92–122; BP diastolic 39–70; PULSE 66–75; RESP 15–18; TEMP 36.6; O2SAT 91–93; BMI 28.3
--- NOTE | 2024-06-27 14:51 | W.ED.ABDPA2 ---
Documented by User: Fidelia Cheng MD 06/27/24 16:27 HPI - Abdominal Pain General: Chief Complaint: Abdominal Pain Stated Complaint: abd pain Time Seen by Provider: 06/27/24 14:30 History of Present Illness: 88-year-old female with a history of type 2 diabetes, atrial fibrillation, chronic anticoagulation on Xarelto, and hyperlipidemia who reports to the emergency room today by ambulance with concern for GI bleeding and some abdominal pain. She is complaining of some point tenderness in her left lower quadrant. Also had some bleeding which family is unsure if this was vaginal or rectal. Apparently bright red blood. She recently had a stroke. She also had a recent nosebleed that had resulted in holding Xarelto for some time but she is back on it now. Related Data Home Medications ?Medication ?Instructions ?Recorded ?Confirmed docusate sodium 100 mg capsule 100 mg PO DAILY 06/02/20 06/27/24 (Colace) fesoterodine 4 mg tablet,extended 4 mg PO DAILY 06/02/20 06/27/24 release 24 hr (Toviaz) levothyroxine 112 mcg capsule 112 mcg PO DAILY 06/02/20 06/27/24 pantoprazole 40 mg tablet,delayed 40 mg PO BEDTIME 06/02/20 06/27/24 release rosuvastatin 40 mg tablet (Crestor) 40 mg PO BEDTIME 06/02/20 06/27/24 ezetimibe 10 mg tablet 10 mg PO DAILY 01/23/22 06/27/24 albuterol sulfate 90 mcg/actuation 2 puff inhalation Q4H PRN Wheezing 06/08/24 06/27/24 aerosol inhaler (Ventolin HFA) levothyroxine 50 mcg tablet 50 mcg PO DAILY 06/08/24 06/27/24 isosorbide mononitrate 120 mg 120 mg PO DAILY 06/27/24 06/27/24 tablet,extended release 24 hr rivaroxaban 20 mg tablet (Xarelto) 20 mg PO QPM 06/27/24 06/27/24 Previous Rx's ?Medication ?Instructions ?Recorded amlodipine 10 mg tablet 10 mg PO DAILY 30 days #30 tabs 06/13/24 aspirin 81 mg capsule 81 mg PO DAILY 30 days #30 caps 06/13/24 calcium carbonate 600 mg PO DAILY 30 days #30 tabs 06/13/24 carvedilol 6.25 mg tablet (Coreg) 6.25 mg PO BID 30 days #60 tabs 06/13/24 clonidine 0.2 mg/24 hr weekly 1 patch transdermal Q7D 30 days #4 06/13/24 transdermal patch ea cyanocobalamin (vitamin B-12) 1,000 mcg PO DAILY 30 days #30 tabs 06/13/24 1,000 mcg tablet,extended release hydralazine 10 mg tablet 10 mg PO Q6H 30 days #120 tabs 06/13/24 starch (thickening) (Thick and 1 ea PO TIDWMEAL #2,724 grams 06/13/24 Easy oral powder) Allergies Allergy/AdvReac Type Severity Reaction Status Date / Time No Known Allergies Allergy Verified 06/18/24 08:01 Review of Systems Narrative: Constitutional symptoms: Negative except as documented in HPI. Skin symptoms: Negative except as documented in HPI. Eye symptoms: Negative except as documented in HPI. ENMT symptoms: Negative except as documented in HPI. Respiratory symptoms: Negative except as documented in HPI. Cardiovascular symptoms: Negative except as documented in HPI. Gastrointestinal symptoms: Negative except as documented in HPI. Genitourinary symptoms: Negative except as documented in HPI. Musculoskeletal symptoms: Negative except as documented in HPI. Neurologic symptoms: Negative except as documented in HPI. Psychiatric symptoms: Negative except as documented in HPI. Endocrine symptoms: Negative except as documented in HPI. PFS ED PFSH: Medical History (Updated 06/27/24 @ 20:42 by Austyn Lisa MD) Syncope Hyperlipidemia Adenocarcinoma of sigmoid colon Hypothyroidism Type 2 diabetes mellitus Atrial fibrillation Uncontrolled hypertension Surgical History History of umbilical hernia repair History of exploratory laparotomy History of ventral hernia repair Social History Smoking and tobacco/nicotine status: never used tobacco/nicotine Physical Exam Narrative: EXAM NARRATIVE: General: Alert, no acute distress. Skin: Warm, dry. Head: Normocephalic, atraumatic. Neck: Supple, trachea midline. Eye: Extraocular movements are intact. Ears, nose, mouth and throat: mucosa moist. Cardiovascular: Regular, Normal peripheral perfusion. Respiratory: Lungs are clear to auscultation, respirations are non-labored, breath sounds are equal, Symmetrical chest wall expansion. Gastrointestinal: Soft, some tenderness in the left lower quadrant, Non distended Musculoskeletal: Normal ROM, no deformity. Neurological: Alert and oriented, No focal neurological deficit observed. Psychiatric: Cooperative, appropriate mood & affect. Course Vital Signs: Vital signs: Vital Signs Temperature 97.9 F 06/27/24 14:28 Pulse Rate 69 06/27/24 22:44 Respiratory Rate 15 06/27/24 22:44 Blood Pressure 98/66 06/27/24 22:44 Pulse Oximetry 93 06/27/24 22:44 Oxygen Delivery Me thod Room Air 06/27/24 22:44 MDM - Abdominal Pain Medical Decision Making Medical decision making: Differential diagnosis for a patient who presents with left lower quadrant abdominal pain including but not limited to and based on the above HPI, review of systems and physical exam: Diverticulitis. Constipation Ureterolithiasis. Urinary tract infection. colitis. small bowel obstruction. Crohn's flare. Orders placed to evaluate differential diagnosis based on the above differential, HPI and physical exam Lab Review: Laboratory results were reviewed and interpreted by myself the emergency room physician. Mild leukocytosis. Significant drop in hemoglobin from 11.3 a couple of weeks ago to 8.1 today. Blood pressure was initially 120/50 repeat 92/48. I reviewed the patient's medical record. Reexamination: Lab Data 06/27/24 19:39 06/27/24 14:43 Labs/Radiology: Radiology Impressions Abdomen/Pelvis CT 06/27/24 15:39 IMPRESSION: 1. Prominent soft tissue thickening involving the proximal rectum suspicious for carcinoma 2. 6 cm rounded soft tissue mass of the left lower quadrant suspicious for metastatic disease 3. Left ureteral obstruction caused by the left lower quadrant mass 4. Metastatic lesion involving the liver 5. Periaortic metastatic lymph nodes 6. Left lower lobe lung nodule suspicious for metastatic disease 7. Prominent constipation Laboratory Results WBC 9.93 10^3/uL (3.29-11.43) 06/27/24 19:39 RBC 2.41 10^6/uL (3.85-5.65) L 06/27/24 19:39 Hgb 7.90 g/dL (11.27-16.99) L 06/27/24 19:39 Hct 24.5 % (36-47) L 06/27/24 19:39 MCV 101.7 fl (85-98) H 06/27/24 19:39 MCH 32.8 pg (27-33) 06/27/24 19:39 MCHC 32.2 g/dL (30-55) 06/27/24 19:39 RDW 14.0 % (12.1-15.1) 06/27/24 19:39 Plt Count 174 10^3/cmm (157-399) 06/27/24 19:39 MPV 9.7 fL (7.4-10.4) 06/27/24 19:39 Neut % (Auto) 82.4 % 06/27/24 19:39 Lymph % (Auto) 9.1 % 06/27/24 19:39 [place] % (Auto) 7.5 % 06/27/24 19:39 Eos % (Auto) 0.4 % 06/27/24 19:39 Baso % (Auto) 0.2 % 06/27/24 19:39 Neut # (Auto) 8.19 10^3/uL (1.8-7.7) H 06/27/24 19:39 Lymph # (Auto) 0.9 10^3/uL (0.8-4.8) 06/27/24 19:39 [place] # (Auto) 0.7 10^3/uL (0.2-0.9) 06/27/24 19:39 Eos # (Auto) 0.0 10^3/uL (0.0-0.8) 06/27/24 19:39 Baso # (Auto) 0.0 10^3/uL (0.0-0.1) 06/27/24 19:39 Nucleated RBC % (auto) 0 % 06/27/24 19:39 Nucleated RBCs # 0.0 /100WBC 06/27/24 19:39 PT 24.60 SECONDS (12.1-14.9) H 06/27/24 14:43 INR 2.08 (0.8-1.2) H 06/27/24 14:43 APTT 42.0 SECONDS (23.9-36.7) H 06/27/24 14:43 Sodium 137 mmol/L (136-145) 06/27/24 14:43 Potassium 4.5 mmol/L (3.5-5.1) 06/27/24 14:43 Chloride 108 mmol/L (98-107) H 06/27/24 14:43 Carbon Dioxide 18 mmol/L (22-29) L 06/27/24 14:43 Anion Gap 15.5 (5-19) 06/27/24 14:43 BUN 56 mg/dL (8-23) H 06/27/24 14:43 Creatinine 1.9 mg/dL (0.5-0.9) H 06/27/24 14:43 GFR Calculation Not Reportable 06/27/24 14:43 Glucose 148 mg/dL (65-115) H 06/27/24 14:43 Calculated Osmolality 302 mOsm/kg (285-295) H 06/27/24 14:43 Lactic Acid 0.9 mmol/L (0.5-2.2) 06/27/24 14:43 Calcium 8.4 mg/dL (8.5-10.5) L 06/27/24 14:43 Total Bilirubin 0.5 mg/dL (0.15-1.2) 06/27/24 14:43 AST 15 U/L (0-32) 06/27/24 14:43 ALT 10 U/L (0-33) 06/27/24 14:43 Alkaline Phosphatase 117 U/L (35-105) H 06/27/24 14:43 C-Reactive Protein 12.6 mg/L (0.0-4.9) H 06/27/24 14:43 Total Protein 6.2 g/dL (6.6-8.7) L 06/27/24 14:43 Albumin 3.0 g/dL (3.5-5.2) L 06/27/24 14:43 Globulin 3.2 g/dL (1.3-4.6) 06/27/24 14:43 Lipase 25 U/L (13-60) 06/27/24 14:43 Urine Color Yellow (Yellow) 06/27/24 17:03 Urine Appearance Clear (CLEAR) 06/27/24 17:03 Urine pH 5.0 (5-7) 06/27/24 17:03 Ur Specific [place] 1.012 (1.005-1.030) 06/27/24 17:03 Urine Protein Negative (Negative) 06/27/24 17:03 Urine Glucose (UA) Negative (Normal) 06/27/24 17:03 Urine Ketones Negative (Negative) 06/27/24 17:03 Urine Blood Negative (Negative) 06/27/24 17:03 Urine Nitrate Negative (Negative) 06/27/24 17:03 Urine Bilirubin Negative (Negative) 06/27/24 17:03 Urine Urobilinogen 1.0 mg/dL (Negative) 06/27/24 17:03 Ur Leukocyte Esterase Negative (Negative) 06/27/24 17:03 Urine RBC 0-2 /hpf (0-2) 06/27/24 17:03 Urine WBC 0-5 /hpf (0-5) 06/27/24 17:03 Ur Squamous Epith Cells 0-5 /hpf (0-5) 06/27/24 17:03 Amorphous Sediment Not Reportable 06/27/24 17:03 Urine Bacteria None seen /hpf (NONE) 06/27/24 17:03 Hyaline Casts 0.40 /lpf 06/27/24 17:03 Blood Type A Positive 06/27/24 16:14 Rho(D) Type Rh positive 06/27/24 16:14 Antibody Screen Negative 06/27/24 16:14 Discharge Plan Discharge Patient Disposition: Xfer Short-Term Hosp Clinical Impression: Metastatic disease Qualifiers: Area of secondary neoplastic involvement: unspecified site Qualified Code(s): 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 Anemia Qualifiers: Anemia type: unspecified type Qualified Code(s): D64.9 - Anemia, unspecified GI bleed Qualifiers: GI bleed type/associated pathology: unspecified gastrointestinal hemorrhage type Qualified Code(s): K92.2 - Gastrointestinal hemorrhage, unspecified Condition: Stable Referrals: Torey Cade MD [Primary Care Provider, [facility]] Print Language: Vietnamese Coding Level of Care Code 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 [employer] Fwd Documented by User: Austyn Lisa MD 06/27/24 23:36 HPI - Abdominal Pain General: Chief Complaint: Abdominal Pain Stated Complaint: abd pain Time Seen by Provider: 06/27/24 14:30 Related Data Home Medications ?Medication ?Instructions ?Recorded ?Confirmed docusate sodium 100 mg capsule 100 mg PO DAILY 06/02/20 06/27/24 (Colace) fesoterodine 4 mg tablet,extended 4 mg PO DAILY 06/02/20 06/27/24 release 24 hr (Toviaz) levothyroxine 112 mcg capsule 112 mcg PO DAILY 06/02/20 06/27/24 pantoprazole 40 mg tablet,delayed 40 mg PO BEDTIME 06/02/20 06/27/24 release rosuvastatin 40 mg tablet (Crestor) 40 mg PO BEDTIME 06/02/20 06/27/24 ezetimibe 10 mg tablet 10 mg PO DAILY 01/23/22 06/27/24 albuterol sulfate 90 mcg/actuation 2 puff inhalation Q4H PRN Wheezing 06/08/24 06/27/24 aerosol inhaler (Ventolin HFA) levothyroxine 50 mcg tablet 50 mcg PO DAILY 06/08/24 06/27/24 isosorbide mononitrate 120 mg 120 mg PO DAILY 06/27/24 06/27/24 tablet,extended release 24 hr rivaroxaban 20 mg tablet (Xarelto) 20 mg PO QPM 06/27/24 06/27/24 Previous Rx's ?Medication ?Instructions ?Recorded amlodipine 10 mg tablet 10 mg PO DAILY 30 days #30 tabs 06/13/24 aspirin 81 mg capsule 81 mg PO DAILY 30 days #30 caps 06/13/24 calcium carbonate 600 mg PO DAILY 30 days #30 tabs 06/13/24 carvedilol 6.25 mg tablet (Coreg) 6.25 mg PO BID 30 days #60 tabs 06/13/24 clonidine 0.2 mg/24 hr weekly 1 patch transdermal Q7D 30 days #4 06/13/24 transdermal patch ea cyanocobalamin (vitamin B-12) 1,000 mcg PO DAILY 30 days #30 tabs 06/13/24 1,000 mcg tablet,extended release hydralazine 10 mg tablet 10 mg PO Q6H 30 days #120 tabs 06/13/24 starch (thickening) (Thick and 1 ea PO TIDWMEAL #2,724 grams 04/25/25 Easy oral powder) Allergies Allergy/AdvReac Type Severity Reaction Status Date / Time No Known Allergies Allergy Verified 06/18/24 08:01 [facility] ED [facility]: Medical History (Updated 06/27/24 @ 20:42 by Austyn Lisa MD) Syncope Hyperlipidemia Adenocarcinoma of sigmoid colon Hypothyroidism Type 2 diabetes mellitus Atrial fibrillation Uncontrolled hypertension Surgical History History of umbilical hernia repair History of exploratory laparotomy History of ventral hernia repair Social History Smoking and tobacco/nicotine status: never used tobacco/nicotine Course Vital Signs: Vital signs: Vital Signs Temperature 97.9 F 06/27/24 14:28 Pulse Rate 69 06/27/24 22:44 Respiratory Rate 15 06/27/24 22:44 Blood Pressure 98/66 06/27/24 22:44 Pulse Oximetry 93 06/27/24 22:44 Oxygen Delivery Me thod Room Air 06/27/24 22:44 MDM - Abdominal Pain Medical Decision Making Medical decision making: Differential diagnosis for a patient who presents with left lower quadrant abdominal pain including but not limited to and based on the above HPI, review of systems and physical exam: Diverticulitis. Constipation Ureterolithiasis. Urinary tract infection. colitis. small bowel obstruction. Crohn's flare. Orders placed to evaluate differential diagnosis based on the above differential, HPI and physical exam Lab Review: Laboratory results were reviewed and interpreted by myself the emergency room physician. Mild leukocytosis. Significant drop in hemoglobin from 11.3 a couple of weeks ago to 8.1 today. Blood pressure was initially 120/50 repeat 92/48. I reviewed the patient's medical record. Patient care taken over at 1800. Labs reviewed. CT reviewed. Patient has some labile blood pressures. Given more IV fluids. Given Kcentra to reverse Xarelto. Patient's hemoglobin dropped from 8.1-7.9 so not a huge drop but will need to be watched. Will transfer patient to [facility] for further evaluation. Dr. Martinez excepting for ICU. 23:34 [facility] states that they will not have a bed available till morning. Discussed with Onofre Dumont who now has a bed available and accepted by Dr. Cancino, ICU. Family updated of the change in plan. Lab Data 06/27/24 19:39 06/27/24 14:43 Labs/Radiology: Radiology Impressions Abdomen/Pelvis CT 06/27/24 15:39 IMPRESSION: 1. Prominent soft tissue thickening involving the proximal rectum suspicious for carcinoma 2. 6 cm rounded soft tissue mass of the left lower quadrant suspicious for metastatic disease 3. Left ureteral obstruction caused by the left lower quadrant mass 4. Metastatic lesion involving the liver 5. Periaortic metastatic lymph nodes 6. Left lower lobe lung nodule suspicious for metastatic disease 7. Prominent constipation Laboratory Results WBC 9.93 10^3/uL (3.29-11.43) 06/27/24 19:39 RBC 2.41 10^6/uL (3.85-5.65) L 06/27/24 19:39 Hgb 7.90 g/dL (11.27-16.99) L 06/27/24 19:39 Hct 24.5 % (36-47) L 06/27/24 19:39 MCV 101.7 fl (85-98) H 06/27/24 19:39 MCH 32.8 pg (27-33) 06/27/24 19:39 MCHC 32.2 g/dL (30-55) 06/27/24 19:39 RDW 14.0 % (12.1-15.1) 06/27/24 19:39 Plt Count 174 10^3/cmm (157-399) 06/27/24 19:39 MPV 9.7 fL (7.4-10.4) 06/27/24 19:39 Neut % (Auto) 82.4 % 06/27/24 19:39 Lymph % (Auto) 9.1 % 06/27/24 19:39 [place] % (Auto) 7.5 % 06/27/24 19:39 Eos % (Auto) 0.4 % 06/27/24 19:39 Baso % (Auto) 0.2 % 06/27/24 19:39 Neut # (Auto) 8.19 10^3/uL (1.8-7.7) H 06/27/24 19:39 Lymph # (Auto) 0.9 10^3/uL (0.8-4.8) 06/27/24 19:39 [place] # (Auto) 0.7 10^3/uL (0.2-0.9) 06/27/24 19:39 Eos # (Auto) 0.0 10^3/uL (0.0-0.8) 06/27/24 19:39 Baso # (Auto) 0.0 10^3/uL (0.0-0.1) 06/27/24 19:39 Nucleated RBC % (auto) 0 % 06/27/24 19:39 Nucleated RBCs # 0.0 /100WBC 06/27/24 19:39 PT 24.60 SECONDS (12.1-14.9) H 06/27/24 14:43 INR 2.08 (0.8-1.2) H 06/27/24 14:43 APTT 42.0 SECONDS (23.9-36.7) H 06/27/24 14:43 Sodium 137 mmol/L (136-145) 06/27/24 14:43 Potassium 4.5 mmol/L (3.5-5.1) 06/27/24 14:43 Chloride 108 mmol/L (98-107) H 06/27/24 14:43 Carbon Dioxide 18 mmol/L (22-29) L 06/27/24 14:43 Anion Gap 15.5 (5-19) 06/27/24 14:43 BUN 56 mg/dL (8-23) H 06/27/24 14:43 Creatinine 1.9 mg/dL (0.5-0.9) H 06/27/24 14:43 GFR Calculation Not Reportable 06/27/24 14:43 Glucose 148 mg/dL (65-115) H 06/27/24 14:43 Calculated Osmolality 302 mOsm/kg (285-295) H 06/27/24 14:43 Lactic Acid 0.9 mmol/L (0.5-2.2) 06/27/24 14:43 Calcium 8.4 mg/dL (8.5-10.5) L 06/27/24 14:43 Total Bilirubin 0.5 mg/dL (0.15-1.2) 06/27/24 14:43 AST 15 U/L (0-32) 06/27/24 14:43 ALT 10 U/L (0-33) 06/27/24 14:43 Alkaline Phosphatase 117 U/L (35-105) H 06/27/24 14:43 C-Reactive Protein 12.6 mg/L (0.0-4.9) H 06/27/24 14:43 Total Protein 6.2 g/dL (6.6-8.7) L 06/27/24 14:43 Albumin 3.0 g/dL (3.5-5.2) L 06/27/24 14:43 Globulin 3.2 g/dL (1.3-4.6) 06/27/24 14:43 Lipase 25 U/L (13-60) 06/27/24 14:43 Urine Color Yellow (Yellow) 06/27/24 17:03 Urine Appearance Clear (CLEAR) 06/27/24 17:03 Urine pH 5.0 (5-7) 06/27/24 17:03 Ur Specific [place] 1.012 (1.005-1.030) 06/27/24 17:03 Urine Protein Negative (Negative) 06/27/24 17:03 Urine Glucose (UA) Negative (Normal) 06/27/24 17:03 Urine Ketones Negative (Negative) 06/27/24 17:03 Urine Blood Negative (Negative) 06/27/24 17:03 Urine Nitrate Negative (Negative) 06/27/24 17:03 Urine Bilirubin Negative (Negative) 06/27/24 17:03 Urine Urobilinogen 1.0 mg/dL (Negative) 06/27/24 17:03 Ur Leukocyte Esterase Negative (Negative) 06/27/24 17:03 Urine RBC 0-2 /hpf (0-2) 06/27/24 17:03 Urine WBC 0-5 /hpf (0-5) 06/27/24 17:03 Ur Squamous Epith Cells 0-5 /hpf (0-5) 06/27/24 17:03 Amorphous Sediment Not Reportable 06/27/24 17:03 Urine Bacteria None seen /hpf (NONE) 06/27/24 17:03 Hyaline Casts 0.40 /lpf 06/27/24 17:03 Blood Type A Positive 06/27/24 16:14 Rho(D) Type Rh positive 06/27/24 16:14 Antibody Screen Negative 06/27/24 16:14 All radiology interpretation(s) finalized by discharge Discharge Plan Discharge Patient Disposition: Xfer Short-Term Hosp Clinical Impression: Metastatic disease Qualifiers: Area of secondary neoplastic involvement: unspecified site Qualified Code(s): 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 Anemia Qualifiers: Anemia type: unspecified type Qualified Code(s): D64.9 - Anemia, unspecified GI bleed Qualifiers: GI bleed type/associated pathology: unspecified gastrointestinal hemorrhage type Qualified Code(s): K92.2 - Gastrointestinal hemorrhage, unspecified Condition: Stable Referrals: Torey Cade MD [Primary Care Provider, [facility]] Print Language: Vietnamese Coding Level of Care Code 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
[2024-06-27 14:57] LABS: Basophils % 0.2 %; Eosinophils % 0.4 %; Hematocrit 25.5 % (36-47); Lymphocytes # 0.6 10^3/uL (0.8-4.8); Lymphocytes % 5.9 %; Mean Corpuscular HGB Conc 31.8 g/dL (30-55); Mean Corpuscular Hemoglobin 32.1 pg (27-33); Mean Corpuscular Volume 101.2 fl (85-98); Mean Platelet Volume 9.8 fL (7.4-10.4); Monocytes # 0.9 10^3/uL (0.2-0.9); Monocytes % 8.3 %; Neutrophils # 8.69 10^3/uL (1.8-7.7); Neutrophils % 84.8 %; Nucleated Red Blood Cells % 0 %; Platelet Count 183 10^3/cmm (157-399); Red Blood Count 2.52 10^6/uL (3.85-5.65); White Blood Count 10.24 10^3/uL (3.29-11.43)
[2024-06-27 15:10] LABS: INR 2.08 (0.8-1.2)
[2024-06-27 15:19] LABS: Alanine Aminotransferase 10 U/L (0-33); Alkaline Phosphatase 117 U/L (35-105); Anion Gap 15.5 (5-19); Aspartate Amino Transferase 15 U/L (0-32); Blood Urea Nitrogen 56 mg/dL (8-23); C Reactive Protein 12.6 mg/L (0.0-4.9); Calcium 8.4 mg/dL (8.5-10.5); Carbon Dioxide 18 mmol/L (22-29); Chloride 108 mmol/L (98-107); Creatinine Clr Calc Pharmacy 20.2893; Globulin 3.2 g/dL (1.3-4.6); Glucose 148 mg/dL (65-115); Lipase 25 U/L (13-60); Osmolality Calculated 302 mOsm/kg (285-295); Potassium 4.5 mmol/L (3.5-5.1); Sodium 137 mmol/L (136-145); Total Bilirubin 0.5 mg/dL (0.15-1.2); Total Protein 6.2 g/dL (6.6-8.7)
[2024-06-27 15:20] LABS: Lactic Sepsis W/Reflex 0.9 mmol/L (0.5-2.2)
--- NOTE | 2024-06-27 15:39 | CTR_ITS ---
PROCEDURE INFORMATION: Exam: CT Abdomen And Pelvis Without Contrast Exam date and time: 06/27/2024 4:17 PM Age: 88 years old Clinical indication: Abdominal pain; Localized; Left lower quadrant (llq); Additional info: Llq abd pain, gi bleeding TECHNIQUE: Imaging protocol: Computed tomography of the abdomen and pelvis without contrast. Radiation optimization: All CT scans at this facility use at least one of these dose optimization techniques: automated exposure control; mA and/or kV adjustment per patient size (includes targeted exams where dose is matched to clinical indication); or iterative reconstruction. COMPARISON: CT chest abdpel w/*[id number] 04/26/2020 1:59 PM RADIATION DOSE METRICS: Total DLP (mGy-cm): 650.03 FINDINGS: Lungs: A 1 cm rounded pleural-based nodule is noted in the left lower lobe. Pleural spaces: Small bilateral pleural effusions are noted. Heart: Mild cardiomegaly is noted. Liver: 2.8 cm rounded nodule involves the right hepatic lobe. Gallbladder and biliary ducts: Multiple gallstones are noted in the gallbladder but the gallbladder does not appear inflamed and demonstrates normal wall thickness. Pancreas: Normal. No ductal dilation. Spleen: Normal. No splenomegaly. Adrenal glands: Normal. No mass. Kidneys and ureters: There is prominent dilatation of the left ureter and the dilatation extends down to the left lower quadrant mass. Stomach and bowel: There is soft tissue mass effect involving the proximal rectum. The mass effect lies just proximal to surgical sutures. A large amount of stool is noted throughout the proximal 2/3 of the colon. Appendix: No evidence of appendicitis. Intraperitoneal space: Unremarkable. No free air. No significant fluid collection. Vasculature: See Soft tissues finding. Lymph nodes: There is a collection of enlarged lymph nodes in the left periaortic space near the level of the kidneys. The largest lymph node measures 2.7 cm here. Urinary bladder: Unremarkable as visualized. Reproductive: Unremarkable as visualized. Bones/joints: Unremarkable. No acute fracture. Soft tissues: There is a 6 cm diameter rounded irregular soft tissue mass lying in the left lower quadrant. The mass lies immediately medial to the left iliac vessels. CT/CT abdomen pelvis wo con [id number] IMPRESSION: 1. Prominent soft tissue thickening involving the proximal rectum suspicious for carcinoma 2. 6 cm rounded soft tissue mass of the left lower quadrant suspicious for metastatic disease 3. Left ureteral obstruction caused by the left lower quadrant mass 4. Metastatic lesion involving the liver 5. Periaortic metastatic lymph nodes 6. Left lower lobe lung nodule suspicious for metastatic disease 7. Prominent constipation
[2024-06-27] MEDS: pantoprazole 40 mg SDV 80 MG IVP (16:09)
[2024-06-27] MEDS: sodium chloride 0.9% 1,000 ML 999 ML IV ×2 (16:10→19:44)
[2024-06-27 17:13] LABS: Bilirubin Urine Negative (Negative); Blood Urine Negative (Negative); Glucose Urine UA Negative (Normal); Ketones Urine Negative (Negative); Leukocyte Esterase Urine Negative (Negative); Nitrate Urine Negative (Negative); Protein Urine Negative (Negative); Specific Gravity, Urine 1.012 (1.005-1.030); Urine Appearance Clear (CLEAR); Urine Color Yellow (Yellow)
[2024-06-27 17:18] LABS: Bacteria Urine None Seen /hpf; RBC Urine 0-2 /hpf (0-2); Squamous Epithelial Cell Urine 0-5 /hpf (0-5); WBC Urine 0-5 /hpf (0-5)
[2024-06-27 19:47] LABS: Basophils % 0.2 %; Eosinophils % 0.4 %; Hematocrit 24.5 % (36-47); Lymphocytes # 0.9 10^3/uL (0.8-4.8); Lymphocytes % 9.1 %; Mean Corpuscular HGB Conc 32.2 g/dL (30-55); Mean Corpuscular Hemoglobin 32.8 pg (27-33); Mean Corpuscular Volume 101.7 fl (85-98); Mean Platelet Volume 9.7 fL (7.4-10.4); Monocytes # 0.7 10^3/uL (0.2-0.9); Monocytes % 7.5 %; Neutrophils # 8.19 10^3/uL (1.8-7.7); Neutrophils % 82.4 %; Nucleated Red Blood Cells % 0 %; Platelet Count 174 10^3/cmm (157-399); Red Blood Count 2.41 10^6/uL (3.85-5.65); White Blood Count 9.93 10^3/uL (3.29-11.43)
[2024-06-27] MEDS: hum prothrombin cplx(pcc)4fact 1,000 UNIT, hum prothrombin cplx(pcc)4fact 500 UNIT in e... 8.4 UNIT IV (21:11)
[2024-06-28 00:16] VITALS: BP 130/69; PULSE 82; O2SAT 91
[2024-06-28 00:30] VITALS: BP 133/69; PULSE 88; O2SAT 92
[2024-06-28 01:15] VITALS: BP 122/72; PULSE 85; PULSE 96; RESP 16; O2SAT 92
== END 2024-06-28 01:17 | disposition short-term general hospital (02) ==
PROVIDERS: Emergency Medicine; Emergency Provider Emergency Medicine; PCP Family Medicine
DX: K92.2 Gastrointestinal hemorrhage, unspecified (principal); D64.9 Anemia, unspecified; C79.9 Secondary malignant neoplasm of unspecified site; E11.9 Type 2 diabetes mellitus without complications; E78.5 Hyperlipidemia, unspecified; Z79.01 Long term (current) use of anticoagulants
CPT/HCPCS: 36415; 74176; 80053; 81001; 83605; 83690; 85025; 85610; 85730; 86140; 86850; 86900; 87040; 96365; 96375; 99285; J2470; J7030; J7168